=== PATIENT | female | born 1960 | race Caucasian/White ===

== ENCOUNTER → 2017-02-27 09:43 | Outpatient (CLI) | payer BC, SELFPAY ==
[2017-01-29 15:27] VITALS: BMI 32.1
--- NOTE | 2017-02-27 09:59 | PCM.CR.ITP ---
Exercise - Initial Assessment - Visit Date of Eval: 02/27/17 - evaluation & assessment - Stages of Change Stages of Change:: Action - Exercise Prescription Mode:: Treadmill, Rower, Airdyne, NuStep Angina with exercise?: No Target Heart Rate:: 116-124 - Hypertension Do any of the following apply?: Yes Resting Blood Pressure:: 118/64 - Intervention Home Exercise/Activity Goal:: Moderate Exercise 30 min/day x 5 days/wk - Education Goals:: Warm-up, RPE PHOEBE Scale, S/S, Safe Exercise, Self-Monitoring - Exercise Program Goals Exercise Program Goals: Aerobic Activity >30 min Nutrition - Initial Assessment - Program Goals Nutrition Program Goals: LDL <70. Total Cholesterol <200. HDL >45. Triglycerides <150. HgbA1C <7%. BMI <25 - Visit Date of Assessment:: 02/27/17 - Stages of Change Stages of Change:: Action - Diabetes Diabetes:: No Insulin: No Non-Insulin Dependent?: No Do you monitor your blood sugar at home?: No - Weight Management Height: 5 ft 3 in Weight:: 81.783 kg Body Fat %:: 31 - Intervention Referral to dietitian:: Yes Referral to Diabetic Clinic:: No Will attend diet classes:: Yes - Education Gave educational materials for:: Healthy eating Nutrition - 30-Day Assessment - Program Goals Nutrition Program Goals: LDL <70. Total Cholesterol <200. HDL >45. Triglycerides <150. HgbA1C <7%. BMI <25 - Diabetes Diabetes:: No Nutrition - 60-Day Assessment - Program Goals Nutrition Program Goals: LDL <70. Total Cholesterol <200. HDL >45. Triglycerides <150. HgbA1C <7%. BMI <25 - Diabetes Diabetes:: No Nutrition - 90-Day Assessment - Program Goals Nutrition Program Goals: LDL <70. Total Cholesterol <200. HDL >45. Triglycerides <150. HgbA1C <7%. BMI <25 - Diabetes Diabetes:: No Nutrition - Final Assessment - Program Goals Nutrition Program Goals: LDL <70. Total Cholesterol <200. HDL >45. Triglycerides <150. HgbA1C <7%. BMI <25 - Diabetes Diabetes:: No Tobacco - Initial Assessment - Program Goals Tobacco Program Goals: Complete smoking cessation. Attend education classes. Improve Knowledge Test score - Stage of Change Stages of Change:: Action - Learning Barriers Learning Barriers: Vision - wears glasses, Ready to Learn - Family Support Do you have family support?: Yes - Tobacco Use Tobacco Use: Non-smoker Do you use smokeless tobacco?: No - Intervention Smoking Cessation Referral:: No Individual Education/Counseling:: No Education Schedule Given:: Yes - Education Gave educational material for:: Coronary artery disease, Risk factors, Sexuality, Medical compliance, Cardiac A&P, Angina signs & symptoms Psychosocial - Initial Assess - Target Goals Target Goals: Assess presence or absence of depression. Using a valid screening tool, maximizes coping skills. Positive support system - Stages of Change Stages of Change:: Action - Psychosocial Test Tool Used:: HANDS Depression Questionnaire Self-reported stress:: Work, a lot of stress with work environment - Intervention PS - Interventions: Yes Attend Stress Management Classes, No Referral to Mental Health, No Referral to [facility] Case Management, No Referral to Physician, No Uses Stress Management Skills - Education Gave educational materials for:: Coping techniques, Signs & symptoms of depression, Stress management, Relaxation techniques - Patient/Program Goal Preventative Medication(s):: Aspirin, MEGHANA inhibitor, Clopidogrel, Beta christian, Statin/lipid - Assistive Devices Assistive Devices:: None Fall Risk Assessed:: Yes Patient Health Questionnaire Initial Assessment 1. Little interest or pleasure in doing things: Not at all 2. Feeling down, depressed, or hopeless: Not at all 3. Trouble falling or staying asleep, or sleeping too much: More than half the days 4. Feeling tired or having little energy: Several days 5. Poor appetite or overeating: More than half the days 6. Feeling bad about yourself -- or that you are a failure or have let yourself or your family down: Not at all 7. Trouble concentrating on things, such as reading the newspaper or watching television: Not at all 8. Moving or speaking so slowly that other people could have noticed. Or the opposite - being so fidgety or restless that you have been moving around a lot more than usual: Several days 9. Thoughts that you would be better off , or of hurting yourself in some way: Not at all How difficult have these problems made it for you to do your work, take care of things at home, or get along with other people?: Not difficult at all Total Score: 6 Knowledge Test - Check your knowledge Initial The #1 cause of in the [place] each year is:: Heart disease Which of the following is a common treatment for heart disease?: All of the above The arteries that feed the heart are called:: Coronary arteries HDL cholesterol is known as the good cholesterol.: False What disease increases your risk for heart disease?: Diabetes What food product raises blood cholesterol level the most?: Saturated fat The bad cholesterol in the blood is called:: HDL Hypertension is another word for:: High blood pressure A blood pressure reading of 148/88 is considered normal.: False Exercise will only benefit your health when your heart rate reaches a target level.: False Total Score:: 8 Self-Efficacy Initial Assessment We would like to know how confident you are in doing certain activities. Please select your confidence level for:: Select your confidence level for the following using the scale 1-10 where 1 is not at all confident and 10 is totally confident. Your score is the average of all 6 responses. Fatigue: How confident are you that you can keep the fatigue caused by your disease from interfering with the things you want to do? Select Number: 9 Physical Discomfort or Pain: How confident are you that you can keep the physical discomfort or pain of your disease from interfering with the things you want to do? Select Number: 9 Emotional Distress: How confident are you that you can keep the emotional distress caused by your disease from interfering with the things you want to do? Select Number: 8 Other Symptoms or Health Problems: How confident are you that you can keep other symptoms or health problems from interfering with the things you want to do? Select Number: 8 Different Tasks and Activities: How confident are you that you can do the different tasks and activities needed to manage your health condition so as to reduce your need to see a doctor? Select Number: 9 Medication: How confident are you that you can do things other than just taking medication to reduce how much your illness affects your everyday life? Select Number: 9 Total Score:: 8 Nutrition Survey - Nutrition Survey Instructions Scoring Instructions: Scoring is as follows: Yes = 1 points. No = 0 point. Patient score that is >/=12 is considered to be at potential nutritional risk and could benefit from a referral to a registered dietitian. - Nutrition Survey Initial Have you lost >10 lbs over the past 2 months without trying?: No Are you following a special diet at home for diabetes, low fat, or low salt?: Yes Are you interested in meeting with a dietitian for help understanding your diet?: Yes Do you eat less than 3 meals a day?: Yes Do you eat fatty meats (irby, sausage, ribs, etc), fried foods, desserts, large amounts of salad dressings, margarine, butter, or cheese most days?: Yes Do you have food allergies? [Enter types in comment field]: Yes Do you eat in restaurants more than 3 times a week?: No Do you season food with salt, seasoning salt, or garlic salt?: Yes Do you used canned, boxed, frozen meals, or soups, seasoning packets?: Yes Total Score:: 7 Cardiac Rehabilitation Goals - Cardiac Rehab Goals Cardiac Rehabilitation Goals: 1. Maintain the individual as the primary focus of care. 2. To improve the patient's quality of life. 3. Identification of cardiac risk factors and provide cardiac risk factor management. 4. Enhance the psychosocial status of the patient. 5. Reconditioning enough to allow the patient to resume customary activities. 6. Control symptoms of cardiac disease - Scale Scale for measuring improvement of personal goals: Enter appropriate number in Comments. 2 = Unchanged. 3 = Slightly Better. 4 = Moderate Improvement. 5 = Met my Goal Initial Assessment Personal Goals: 30-day Re-assessment: Improve energy level, Get back to work, or to resume activities faster, Improve diet and eating habits (eat healthier), Control risk factors (learn risk factor modification), Other goal: - Learn to eat healthier foods.
--- NOTE | 2017-02-27 10:00 | PCM.CR.HP2 ---
CR - History & Physical - General Arrival date:: 02/27/17 Arrival time:: 10:03 Date of Admission: 02/27/17 Referring Physician: Dr. Sma Massey Primary Diagnosis: PCI-[place] - History of Present Cardiac Event Onset Date: Enter Onset Date of cardiac illnesses in Comment field below PTCA:: Yes - PCI-[place] left anterior descending artery x 2 stents Type of Symptoms:: Unspecified chest pain, Abnormal stress test with anterior ischemia, scheduled for catheterization Interventions with present event:: subsequent heart cath Were there any complications?: sensitivity to metoprolol and brillinta; changed over to plavix - Medications Home Medications: Ambulatory Orders Medication Instructions Recorded Amlodipine Besylate/Benazepril 1 tab PO DAILY 01/26/17 [Lotrel 10-40 mg Capsule] Aspirin [Aspirin EC] 81 mg PO DAILY 01/26/17 Meclizine HCl 25 mg PO Q8H PRN PRN #20 tablet 02/11/17 Zolpidem Tartrate [Ambien] 10 mg PO QHS 02/11/17 - Allergies Allergies/Adverse Reactions: Allergies ticagrelor [From Brilinta] Allergy (Verified 02/11/17 10:15) Shortness of breath acetaminophen [From Vicodin] Adverse Reaction (Mild, Verified 02/11/17 10:15) Unknown per pt , reaction is hyperactivity hydrocodone [From Vicodin] Adverse Reaction (Mild, Verified 02/11/17 10:15) Unknown per pt, reaction is hyperactivity oxycodone [From Percocet] Adverse Reaction (Verified 02/11/17 10:15) Other per patient, reaction is hyperactivity - Sleep Disorder Evaluation Hx of Sleep Apnea: No Do you snore loudly (louder than talking or can be heard through closed doors)?: Yes Do you often feel tired/ fatigued/ sleepy during daytime?: Yes - work so hard at work not sure if over-tired over working brain. Has anyone observed you stop breathing during sleep?: No History of Hypertension (for STOP score): Yes - for about 15 years, latril keeps it under control. STOP Results: Positive Advanced Directives - Advanced Directives Power of Air Press Operator: No Living Will: No Advance Directives on File: No DNR Order?:: No Past Medical History - Problems and Co-Morbidities Problems & Co-Morbidities: Dyslipidemia, Obesity - BMI 31-31.9%, Hypertension, - - Panic attacks, diverticulitis, IBS, DM, hypothyroidism, - Past Medical Illness Other Medical Illnesses:: migrain headaches, seasonal allergies. - Past Cardiac Illness Past Cardiac Illness: Ejection Fraction - 60% per ECHO 01/10/2017 - Other Other: Vision/Eye Problems - wears glasses - Past Surgical History Surgical History: - - , NOA -one ovary, and now stents - Family History Summary Additional Family History: PGM TIA, father [place] age 75, daughter hx breast [place]. Review of Systems - Review of Systems Hints: Right click = Denies (Slash). Left click = Reports ([place]) Review of Present Symptoms: Reports: Shortness of Breath at Rest, Shortness of Breath with Exertion - walking from one side of the store to the other, Dizziness/Lightheadedness - related to vertigo, so it is on and off., Fatigue, Appetite - Special Diet - try to watch fats, and salt.. Denies: Appetite - Normal - irregular not really hungry but do eat., Sleep - Normal - not sleeping more than a couple of hours nightly. Risk Factor Assessment - Chief Complaint Chief Complaint: patient presents to cardiac rehab following recent PCI-[place] procedure. - Pulse Pulse Rate: 92 - SpO2 94% Pulse Rhythm: Regular - Hypertension How long have you been treated?: 15 On medication(s)?: [id number] Blood Pressure Sitting - Right Arm: 104/60 - Stress Stress: Work-related - Smoking Do you use tobacco products? If so, how much and for how long?: No Exposure to 2nd-hand smoke? How much and how long?: No Do you plan to quit smoking?: No - Diabetes Nutrition Referral for Diabetes: No - Obesity Height: 5 ft 3 in Weight:: 81.783 kg Weight in Pounds: 180.3 lbs Body Mass Index (BMI): 31.9 Nutritional Referral for Obesity: Yes - Physical Inactivity Physical Inactivity: Physically demanding job - alot of walking, climbing ladders, stairs etc. - Risk Stratification Risk Guidelines: Lowest Risk: Risk Factor for Smoking, Risk Factor for Dyslipidemia, Risk Factor for Diabetes, Risk Factor for Hypertension, Risk Factor for Sedentary Lifestyle, Risk Factor for Depression, Highest Risk: Risk Factor for Obesity - For Smoking Smoking Risk Guidelines: Smoking Low Risk: None or quit greater than 6 months ago. Smoking Moderate Risk: Smoker or quit 6 months or less ago. Smoking High Risk: Smoker - For Dyslipidemia Dyslipidemia Risk Guidelines: Low Risk: Moderate Risk: High Risk: 15-25% fat 25.1-29% fat >/= 30% fat. <7% sat fat 7-9% sat fat >9% sat fat. <150 mg chol 150-299 mg chol >/= 300 mg chol. LDL <100 LDL 100-129 LDL >/= 130. Chol/HDL ratio <5.0 Chol/HDL ratio 5.0-6.0 Chol/HDL ratio >6.0. Triglycerides <100 Triglycerides 100-149 Triglycerides >/= 150 - For Diabetes Mellitus Diabetes Risk Guidelines: Diabetes Low Risk: HgA1c <6.5% and/or FBG <120. Diabetes Moderate Risk: HgA1c 6.6-7.9% and/or FBG 120-180. Diabetes High Risk: HgA1c >/= 8% and/or FBG >180 - For Obesity/Overweight Obesity/Overweight Risk Guidelines: Obesity Low Risk: BMI <25.0. Obesity Moderate Risk: BMI 25-29.9. Obesity High Risk: BMI >/= 30.0 - For Hypertension Hypertension Risk Guidelines: Hypertension Low Risk: Systolic <120 and Diastolic <80. Hypertension Moderate Risk: Systolic 120-139 and Diastolic 80-89. Hypertension High Risk: Systolic >/= 140 and Diastolic >/= 90 - For Sedentary Lifestyle Sedentary Lifestyle Risk Guidelines: Sedentary Lifestyle Low Risk: >/= 1,500 kcal/week. Sedentary Lifestyle Moderate Risk: 700-1,499 kcal/week. Sedentary Lifestyle High Risk: < 700 kcal/week - For Depression Depression Risk Guidelines: Depression Low Risk: Not clinically depressed. Depression Moderate Risk: Mildly depressed. Depression High Risk: Clinically depressed Social History - Alcohol Use Alcohol Usage: No - Occupation Occupation (List type of work in comments):: Employed Hours worked per day:: 9 - give or take Returned to work on:: 02/19/17 - Hobbies, Recreation, Social Activities Hobbies: Other - [employer], cooking, word find puzzles, learn how to lc, Recreational Activities: I am able to engage in all my recreational activities Marital Status - Status Marital Status: Single - Current Living Arrangements Living Environment:: Family - Children How many children do you have?: 2 - son and a daughter Do any of your children live nearby?: Yes - 1 at home, 10 miles - Safety Do you feel safe in your surroundings?: Yes - Assistance Do you need any assistance at home?: none
--- NOTE | 2017-02-27 10:10 | CR.HP_ITS ---
CR - History & Physical - General Arrival date:: 02/27/17 Arrival time:: 10:03 Date of Admission: 02/27/17 Referring Physician: Dr. Sam Massey Primary Diagnosis: PCI-[place] - History of Present Cardiac Event Onset Date: Enter Onset Date of cardiac illnesses in Comment field below PTCA:: Yes - PCI-[place] left anterior descending artery x 2 stents Type of Symptoms:: Unspecified chest pain, Abnormal stress test with anterior ischemia, scheduled for catheterization Interventions with present event:: subsequent heart cath Were there any complications?: sensitivity to metoprolol and brillinta; changed over to plavix - Medications Home Medications: Ambulatory Orders Medication Instructions Recorded Amlodipine Besylate/Benazepril 1 tab PO DAILY 01/26/17 [Lotrel 10-40 mg Capsule] Aspirin [Aspirin EC] 81 mg PO DAILY 01/26/17 Meclizine HCl 25 mg PO Q8H PRN PRN #20 tablet 02/11/17 Zolpidem Tartrate [Ambien] 10 mg PO QHS 02/11/17 - Allergies Allergies/Adverse Reactions: Allergies ticagrelor [From Brilinta] Allergy (Verified 02/11/17 10:15) Shortness of breath acetaminophen [From Vicodin] Adverse Reaction (Mild, Verified 02/11/17 10:15) Unknown per pt , reaction is hyperactivity hydrocodone [From Vicodin] Adverse Reaction (Mild, Verified 02/11/17 10:15) Unknown per pt, reaction is hyperactivity oxycodone [From Percocet] Adverse Reaction (Verified 02/11/17 10:15) Other per patient, reaction is hyperactivity - Sleep Disorder Evaluation Hx of Sleep Apnea: No Do you snore loudly (louder than talking or can be heard through closed doors)? : Yes Do you often feel tired/ fatigued/ sleepy during daytime?: Yes - work so hard at work not sure if over-tired over working brain. Has anyone observed you stop breathing during sleep?: No History of Hypertension (for STOP score): Yes - for about 15 years, latril keeps it under control. STOP Results: Positive Advanced Directives - Advanced Directives Power of Gymnastics Coach: No Living Will: No Advance Directives on File: No DNR Order?:: No Past Medical History - Problems and Co-Morbidities Problems & Co-Morbidities: Dyslipidemia, Obesity - BMI 31-31.9%, Hypertension, - - Panic attacks, diverticulitis, IBS, DM, hypothyroidism, - Past Medical Illness Other Medical Illnesses:: migrain headaches, seasonal allergies. - Past Cardiac Illness Past Cardiac Illness: Ejection Fraction - 60% per ECHO 01/10/2017 - Other Other: Vision/Eye Problems - wears glasses - Past Surgical History Surgical History: - - , NOA -one ovary, and now stents - Family History Summary Additional Family History: PGM TIA, father [place] age 75, daughter hx breast [place]. Review of Systems - Review of Systems Hints: Right click = Denies (Slash). Left click = Reports ([place]) Review of Present Symptoms: Reports: Shortness of Breath at Rest, Shortness of Breath with Exertion - walking from one side of the store to the other, Dizziness/Lightheadedness - related to vertigo, so it is on and off., Fatigue, Appetite - Special Diet - try to watch fats, and salt.. Denies: Appetite - Normal - irregular not really hungry but do eat., Sleep - Normal - not sleeping more than a couple of hours nightly. Risk Factor Assessment - Chief Complaint Chief Complaint: patient presents to cardiac rehab following recent PCI[place] procedure. - Pulse Pulse Rate: 92 - SpO2 94% Pulse Rhythm: Regular - Hypertension How long have you been treated?: 15 On medication(s)?: [id number] Blood Pressure Sitting - Right Arm: 104/60 - Stress Stress: Work-related - Smoking Do you use tobacco products? If so, how much and for how long?: No Exposure to 2nd-hand smoke? How much and how long?: No Do you plan to quit smoking?: No - Diabetes Nutrition Referral for Diabetes: No - Obesity Height: 5 ft 3 in Weight:: 81.783 kg Weight in Pounds: 180.3 lbs Body Mass Index (BMI): 31.9 Nutritional Referral for Obesity: Yes - Physical Inactivity Physical Inactivity: Physically demanding job - alot of walking, climbing ladders, stairs etc. - Risk Stratification Risk Guidelines: Lowest Risk: Risk Factor for Smoking, Risk Factor for Dyslipidemia, Risk Factor for Diabetes, Risk Factor for Hypertension, Risk Factor for Sedentary Lifestyle, Risk Factor for Depression, Highest Risk: Risk Factor for Obesity - For Smoking Smoking Risk Guidelines: Smoking Low Risk: None or quit greater than 6 months ago. Smoking Moderate Risk: Smoker or quit 6 months or less ago. Smoking High Risk: Smoker - For Dyslipidemia Dyslipidemia Risk Guidelines: Low Risk: Moderate Risk: High Risk: 15-25% fat 25.1-29% fat >/= 30% fat. <7% sat fat 7-9% sat fat >9% sat fat. <150 mg chol 150-299 mg chol >/= 300 mg chol. LDL <100 LDL 100-129 LDL >/= 130. Chol/HDL ratio <5.0 Chol/HDL ratio 5.0-6.0 Chol/HDL ratio >6.0. Triglycerides <100 Triglycerides 100-149 Triglycerides >/= 150 - For Diabetes Mellitus Diabetes Risk Guidelines: Diabetes Low Risk: HgA1c <6.5% and/or FBG <120. Diabetes Moderate Risk: HgA1c 6.6-7.9% and/or FBG 120-180. Diabetes High Risk: HgA1c >/= 8% and/or FBG >180 - For Obesity/Overweight Obesity/Overweight Risk Guidelines: Obesity Low Risk: BMI <25.0. Obesity Moderate Risk: BMI 25-29.9. Obesity High Risk: BMI >/= 30.0 - For Hypertension Hypertension Risk Guidelines: Hypertension Low Risk: Systolic <120 and Diastolic <80. Hypertension Moderate Risk: Systolic 120-139 and Diastolic 80-89. Hypertension High Risk: Systolic >/= 140 and Diastolic >/= 90 - For Sedentary Lifestyle Sedentary Lifestyle Risk Guidelines: Sedentary Lifestyle Low Risk: >/= 1 ,500 kcal/week. Sedentary Lifestyle Moderate Risk: 700-1,499 kcal/week. Sedentary Lifestyle High Risk: < 700 kcal/week - For Depression Depression Risk Guidelines: Depression Low Risk: Not clinically depressed. Depression Moderate Risk: Mildly depressed. Depression High Risk: Clinically depressed Social History - Alcohol Use Alcohol Usage: No - Occupation Occupation (List type of work in comments):: Employed Hours worked per day:: 9 - give or take Returned to work on:: 02/19/17 - Hobbies, Recreation, Social Activities Hobbies: Other - [employer], cooking, word find puzzles, learn how to lc , Recreational Activities: I am able to engage in all my recreational activities Marital Status - Status Marital Status: Single - Current Living Arrangements Living Environment:: Family - Children How many children do you have?: 2 - son and a daughter Do any of your children live nearby?: Yes - 1 at home, 10 miles - Safety Do you feel safe in your surroundings?: Yes - Assistance Do you need any assistance at home?: none
[2017-02-27 10:40] VITALS: BP 104/60; PULSE 92; BMI 31.9
[2017-02-27 11:51] VITALS: BP 118/64
== END ==
PROVIDERS: Family Provider Nurse Practitioner; PCP Nurse Practitioner; Visit Provider Internal Medicine Cardiovascular Disease
DX: Z95.5 Presence of coronary angioplasty implant and graft (principal)

== ENCOUNTER → 2018-04-09 10:32 | Outpatient (CLI) | payer BC, SELFPAY ==
[2017-01-29 15:27] VITALS: BMI 32.1
--- NOTE | 2018-04-09 10:35 | RAD_ITS ---
STUDY: X-RAY - PELVIS AND RIGHT HIP REASON FOR EXAM: Female, 57 years old. Right groin pain TECHNIQUE: Radiological exam, hip, unilateral, with pelvis when performed; 2 or 3 views. COMPARISON: None. FINDINGS: There is a non-specific bowel gas pattern. Normal visualized soft tissue structures. Normal bilateral iliac wings, sacroiliac joints and visualized sacrum. Normal bilateral superior and inferior pubic rami. Normal pubic symphysis. Normal bilateral ischial tuberosities. Normal visualized femoral head. Normal acetabulum. Normal hip joint. RAD/HIP, UNI W/ Pelvis 2-3 Views IMPRESSION: Normal x-ray examination of the pelvis and hip. No fracture Electronically Signed: Clemente Machado MD at 6:41 EST Tel , Service support ,
== END ==
PROVIDERS: Family Provider Nurse Practitioner; PCP Nurse Practitioner; Referring Provider Physician Assistant; Visit Provider Physician Assistant
DX: M25.551 Pain in right hip (principal)
CPT/HCPCS: 73502

== ENCOUNTER → 2019-12-17 09:59 | Outpatient (CLI) | payer BC, SELFPAY ==
[2017-01-29 15:27] VITALS: BMI 32.1
[2019-12-16 10:22] VITALS: BMI 27.4
[2019-12-17 11:00] LABS: AST(SGOT) 11 U/L (15-37); Alanine Aminotransfer ALT/SGPT 27 U/L (13-56); Albumin, Serum 3.6 g/dL (3.2-5.0); Alkaline Phosphatase 120 U/L (45-117); Bilirubin, Direct 0.16 mg/dL (0.00-0.30); Cholesterol 253 mg/dL (200); Globulin 4.2 g/dL (2.2-4.2); High Density Lipoprotein 45 mg/dL; Protein, Total 7.8 g/dL (6.4-8.2); Thyroid Stim Hormone (TSH) 0.92 uIU/mL (0.358-3.74); Triglycerides 175 mg/dL; Very Low Density Lipoprotein 35 mg/dL (5-40)
== END ==
PROVIDERS: PCP Nurse Practitioner; Referring Provider Internal Medicine Cardiovascular Disease; Visit Provider Internal Medicine Cardiovascular Disease
DX: E78.00 Pure hypercholesterolemia, unspecified (principal); E78.5 Hyperlipidemia, unspecified
CPT/HCPCS: 36415; 80061; 80076; 84443

== ENCOUNTER → 2019-12-31 06:24 | Outpatient (CLI) | payer BC, SELFPAY ==
[2017-01-29 15:27] VITALS: BMI 32.1
[2019-12-16 10:22] VITALS: BMI 27.4
--- NOTE | 2019-12-31 13:06 | STRESSREP ---
Stress Test Report Exercise myocardial perfusion stress test. 59-year-old lady with a history of previous angioplasty and stenting of the left anterior descending artery. Stress protocol: Resting EKG demonstrates normal sinus rhythm with a rate of 78 bpm normal intervals are noted resting blood pressure is 142/86 mmHg. The patient exercised according to regular Nagi protocol for a total duration of 6 minutes. The maximum heart rate attained was 153 bpm which was 93% of maximum predicted heart rate the maximum workload was 7 metabolic equivalents. At rest there were no ST or T wave changes noted suggest ischemia at peak exercise upsloping ST changes only were noted with no meet the criteria for ischemia. Resting blood pressure was 142/86 with a peak blood pressure 170/104 mmHg rate-pressure product was 26,000. No clinical angina was noted the test was terminated due to leg discomfort as well as target heart rate being achieved. Myocardial perfusion protocol. 11.1 mCi of technetium 99m sestamibi was injected at rest. The patient exercised according to regular Nagi protocol for 6 minutes at peak exercise 33.8 mCi of technetium 99m sestamibi was injected stress images were obtained stress and rest images were reconstructed and compared in the short axis vertical long horizontal long axis. Gated images were also obtained Perfusion SPECT analysis: Review of the stress images demonstrate normal uptake of tracer noted in all areas of myocardium the resting images similar demonstrate normal uptake of tracer noted in all areas of myocardium. No obvious reversibility is noted suggest ischemia. Gated SPECT analysis: The gated ejection fraction is 77%. Conclusion: Normal exercise myocardial perfusion stress test with no evidence of ischemia at a moderate workload. Preserved ejection fraction.
== END ==
PROVIDERS: PCP Nurse Practitioner; Referring Provider Internal Medicine Cardiovascular Disease; Visit Provider Internal Medicine Cardiovascular Disease
DX: I25.10 Atherosclerotic heart disease of native coronary artery without angina pectoris (principal); Z95.5 Presence of coronary angioplasty implant and graft
CPT/HCPCS: 78452; 93017; A9500; A4216

== ENCOUNTER 2020-12-28 16:44 | Emergency (ER) | payer BC, SELFPAY ==
[2017-01-29 15:27] VITALS: BMI 32.1
[2020-12-28 16:21] VITALS: BMI 26.9
[2020-12-28 16:46] VITALS: BP 118/93; PULSE 80; RESP 16; TEMP 36.2; O2SAT 96; BMI 26.6
--- NOTE | 2020-12-28 17:20 | EX.ED.DYSGE1 ---
HPI History of Present Illness Chief Complaint: Dizziness Informant: patient Narrative Narrative: 60-year-old female presents the emergency room and states that every December her allergies get flared up and she gets a frontal headache nasal drainage ear pressure and over the past few days has been developing some dizziness-like sensation when she stands. The dizziness has been intermittent today. No spinning sensation she denies any current cough but states that usually comes with it. She notes itchy watery eyes. She has had some periorbital swelling. No fevers. She states that in the past she has done well with Zyrtec. PFSH [facility] Medical History Atherosclerotic heart disease of [place] coronary artery without angina pectoris Chest pain, unspecified Diabetes type 2, uncontrolled Diverticulitis DM (diabetes mellitus) Essential (primary) hypertension HLD (hyperlipidemia) Hypothyroidism Irritable bowel syndrome Panic attack Shortness of breath Tearing of muscle Home Medications aspirin 81 mg tablet,delayed release 81 mg PO QDAY #90 tab 12/10/18 [Rx Last Taken Unknown] Lotrel 10 mg-40 mg capsule 1 cap PO DAILY #90 cap NS 12/14/20 [Rx Last Taken Unknown] ezetimibe 10 mg tablet 10 mg PO DAILY #90 tab 12/14/20 [Rx Last Taken Unknown] cetirizine [Zyrtec] 10 mg PO DAILY #14 capsule 12/28/20 [Rx Last Taken Unknown] doxycycline monohydrate 100 mg PO BID #20 capsule 12/28/20 [Rx Last Taken Unknown] fluticasone propionate 2 spray INTRANASAL DAILY #16 g 12/28/20 [Rx Last Taken Unknown] Allergy/AdvReac Type Severity Reaction Status Date / Time sumatriptan [From Imitrex] Allergy Severe asthma, SOB Verified 12/28/20 16:45 Cephalosporins Allergy Mild Unknown Verified 12/28/20 16:45 citalopram [From Celexa] Allergy Mild Unknown Verified 12/28/20 16:45 erythromycin base Allergy Mild Hives Verified 12/28/20 16:45 estradiol Allergy Mild nausea and Verified 12/28/20 16:45 vomiting gatifloxacin Allergy Mild Unknown Verified 12/28/20 16:45 levofloxacin [From Levaquin] Allergy Mild headaches Verified 12/28/20 16:45 sertraline Allergy Mild pt felt Verified 12/28/20 16:45 dope sucralfate Allergy Mild nausea and Verified 12/28/20 16:45 vomiting triamterene Allergy Mild nausea and Verified 12/28/20 16:45 vomiting ticagrelor [From Brilinta] Allergy Shortness Verified 12/28/20 16:45 of breath acetaminophen [From Vicodin] AdvReac Mild Unknown Verified 12/28/20 16:45 hydrocodone [From Vicodin] AdvReac Mild Unknown Verified 12/28/20 16:45 atorvastatin [From Lipitor] AdvReac myalgia Verified 12/28/20 16:45 clopidogrel [From Plavix] AdvReac Skin Verified 12/28/20 16:45 peeling: oxycodone [From Percocet] AdvReac Other Verified 12/28/20 16:45 entex pse Allergy Mild Unknown Uncoded 12/28/20 16:45 hctz Allergy Mild nausea and Uncoded 12/28/20 16:45 vomiting Family History Father Myocardial infarction, Onset Age: 75 Daughter Breast cancer Other Hypertension Surgical History History of colonoscopy History of coronary artery stent placement (01/29/17) History of hysterectomy Social History Smoking Status: Never smoker alcohol intake: never substance use type: does not use caffeine: Yes Type: tea Number of servings: 2 what type of physical activity do you participate in: walking frequency: daily duration: 15-30 minutes/day seatbelt use: always do you feel safe at home: Yes ROS ROS ED Constitutional Constitutional ED: Denies chills or weight loss Eyes Eyes: Reports other Details: Itchy watery eyes ; Denies change in vision or diplopia ENT ENT ED: Reports ear pain, rhinorrhea and other Details: Bilateral ear pressure frontal headache periorbital swelling ; Denies sore throat Cardiovascular Cardiovascular: Denies chest pain, orthopnea, palpitations or racing heartbeat Respiratory/Chest Respiratory/Chest: Denies cough, dyspnea or orthopnea Gastrointestinal Gastrointestinal: Denies abdominal pain, diarrhea, nausea or vomiting Genitourinary Genitourinary ED: Denies dysuria, hematuria or urinary frequency Musculoskeletal Musculoskeletal: Denies arthralgias or myalgias Integumentary Denies abscess or rash Neurologic Neurologic: Denies headache(s) or weakness Psychiatric Psychiatric: Denies anxiety, depression, suicidal ideation or suicidal thoughts Endocrine Endocrinology: Denies polydipsia, polyphagia or polyuria Allergic/Immunologic Allergic/Immunologic ED: Denies mouth swelling, tongue swelling or urticaria EXAM Physical Exam Const Vital Signs: 12/28/20 16:46 12/28/20 17:03 Temperature 97.1 F L Temperature Source Temporal Pulse Rate 80 Respiratory Rate 16 Respiratory Effort Normal Non-Labored Respiratory Pattern Normal Blood Pressure 118/93 H Blood Pressure Mean 101 Pulse Ox 96 Oxygen Delivery Method Room Air Positive well nourished and well developed General Appearance ED: well developed HEENT Reports normocephalic, head/scalp atraumatic and moist mucous membranes HEENT Narrative: Bilaterally the patient has fluid behind the tympanic membranes. They are not erythematous. Patient has clear rhinorrhea. There is no conjunctival injection. Mild tenderness to palpation over the frontal sinuses. Eyes PERRL and EOMs intact bilaterally Neck no lymphadenopathy, supple and no JVD Resp normal respiratory effort and clear to auscultation bilaterally Cardio regular rate, regular rhythm and no murmurs GI normal to inspection, nondistended, normoactive bowel sounds and non-tender Palpation: soft Back/Spine no CVA tenderness and normal ROM Extremity normal to inspection General Extremety ED: Negative for edema General Extremity: Negative for edema Neuro oriented x3 and CN's II-XII intact bilaterally Sensorium / Orientation: alert Motor Exam: strength 5/5 throughout Psych mental status grossly normal Mood & Affect: Negative for depressed or tearful Skin no rashes or lesions noted and no wounds MDM MDM MDM Narrative Medical decision making narrative: This it does appear to be seasonal allergies. I will give her a dose of IM Kenalog. I can also start her on Zyrtec and Flonase. Patient would also like to try to a antibiotic. I think this is less likely to be effective. Discharge Plan Triage Chief Complaint: Dizziness ED Provider: Elia Rosas Dx/Rx/DC Orders Clinical Impression: Acute serous otitis media of both ears, Allergic rhinitis Instructions: ED Allergic Rhinitis Prescriptions: New Zyrtec 10 mg capsule 10 mg PO DAILY Qty: 14 RF: 0 fluticasone propionate 50 mcg/actuation spray,suspension 2 spray intranasal DAILY Qty: 16 RF: 0 doxycycline monohydrate 100 MG capsule 100 mg PO BID Qty: 20 RF: 0 No Action aspirin [Adult Low Dose Aspirin] 81 mg tablet,delayed release (DR/EC) 81 mg PO QDAY Qty: 90 RF: 8 ezetimibe 10 mg tablet 10 mg PO DAILY Qty: 90 RF: 3 amlodipine-benazepril [Lotrel] 10-40 mg capsule 1 cap PO DAILY Qty: 90 RF: 3 Primary Care Provider: Lary Hernandez NP Referrals: Lary Hernandez NP, [facility] [Primary Care Provider] - As Needed Disposition Disposition: Home, Self Care
[2020-12-28] MEDS: Triamcinolone Acetonide 40 MG/ML Vial 80 MG IM (17:49)
== END 2020-12-28 18:19 | disposition home or self-care (01) ==
LOC: ED 17:32
PROVIDERS: Emergency Provider Emergency Medicine; PCP Nurse Practitioner
DX: H65.03 Acute serous otitis media, bilateral (principal); J30.9 Allergic rhinitis, unspecified; I25.10 Atherosclerotic heart disease of native coronary artery without angina pectoris; Z79.82 Long term (current) use of aspirin; Z79.899 Other long term (current) drug therapy
CPT/HCPCS: 96372; 99283

== ENCOUNTER 2021-10-17 18:55 | Emergency (ER) | payer BC, SELFPAY ==
[2017-01-29 15:27] VITALS: BMI 32.1
[2021-10-17 18:57] VITALS: BP 139/102; PULSE 90; RESP 16; TEMP 36.5; O2SAT 95; BMI 27.4
--- NOTE | 2021-10-17 20:50 | ED.RN ---
ASKED HOW MUCH LONGER. 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 STATED SHE IS HERE BECAUSE SHE IS HAVING PROBLEMS. APOLOGIZED AND STATED WE WOULD GET HER BACK SOON WE COULD. HE ASKED IF THEY COULD LEAVE IF THEY DECIDED. ANSWERED THEY WERE FREE TO DO THEY DECIDED AND AGAIN WE WOULD GET HER BACK SOON WE COULD. PT AND HER AMBULATED FROM ED WITHOUT DISTRESS AND STEADY GAIT.
== END 2021-10-17 20:30 | disposition left against medical advice (07) ==
LOC: ED 20:56
DX: Z53.21 Procedure and treatment not carried out due to patient leaving prior to being seen by health care provider (principal)

== ENCOUNTER → 2022-01-17 | Outpatient (CLI) | payer BC, SELFPAY ==
[2017-01-29 15:27] VITALS: BMI 32.1
--- NOTE | 2022-01-17 08:45 | ECHOD_ITS ---
Reason For Study: MURMUR Procedure This was a 2D Doppler, Color Flow transthoracic echocardiogram. Exam performed in department. Left Ventricle Normal LV size. Sigmoid septum. Left ventricular systolic function is normal. The estimated ejection fraction is 60 %. No regional wall motion abnormalities noted. Right Ventricle Normal RV size. Normal systolic function. Atria Normal left atrium. Normal right atrium. Mitral Valve Normal mitral valve. Tricuspid Valve Normal tricuspid valve. Aortic Valve Trisinus/trileaflet aortic valve. Moderate focal aortic valve calcification. Pulmonic Valve Normal pulmonic valve. Trivial pulmonic valve insufficiency. Great Vessels Normal aortic root. The pulmonary artery is normal size. Normal inferior vena cava. Pericardium/Pleural No pericardial effusion. MMode/2D Measurements & Calculations LVIDd: 4.4 cm IVSd: 1.1 cm LVOT diam: 2.1 cm LVIDs: 2.8 cm LVPWd: 1.3 cm LVOT area: 3.3 cm2 RVDd: 3.1 cm FS: 35.9 % Ao root diam: 3.6 cm LVAd ap4: 22.4 cm2 SV(MOD-sp4): 32.5 ml LVLd ap4: 7.2 cm EDV(MOD-sp4): 56.3 ml EDV(sp4-el): 59.3 ml LVAs ap4: 13.4 cm2 LVLs ap4: 6.2 cm ESV(MOD-sp4): 23.9 ml ESV(sp4-el): 24.3 ml EF(MOD-sp4): 57.6 % EF(sp4-el): 59.1 % SV(sp4-el): 35.0 ml LA dimension(2D): 3.7 cm Time Measurements MV dec time: 0.22 sec Doppler Measurements & Calculations MV E max bell: 58.3 cm/sec MV V2 max: 82.0 cm/sec MV dec slope: 271.1 cm/sec2 MV A max bell: 85.3 cm/sec MV max P.7 mmHg MV E/A: 0.68 MV V2 mean: 49.8 cm/sec MV mean P.1 mmHg MV V2 VTI: 23.7 cm MVA(VTI): 3.0 cm2 Ao V2 max: 147.0 cm/sec LV V1 max: 94.0 cm/sec SV(LVOT): 70.0 ml Ao max P.7 mmHg LV V1 max P.5 mmHg Ao V2 mean: 105.4 cm/sec LV V1 mean P.9 mmHg Ao mean P.0 mmHg LV V1 mean: 65.0 cm/sec Ao V2 VTI: 32.8 cm LV V1 VTI: 21.1 cm TATI(I,D): 2.1 cm2 TATI(V,D): 2.1 cm2 PA V2 max: 87.1 cm/sec ECHO/Echo Complete Interpretation Summary Normal LV size. Sigmoid septum. Left ventricular systolic function is normal. Moderate focal aortic valve calcification. The estimated ejection fraction is 60 %. Ordering Physician: Sonal Bailey Performed By: Candice Suarez RCS
== END | disposition home or self-care (01) ==
LOC: CVS 08:43
PROVIDERS: Visit Provider Physician Assistant Medical
DX: R01.1 Cardiac murmur, unspecified (principal); I10 Essential (primary) hypertension
CPT/HCPCS: 93306

== ENCOUNTER → 2023-03-13 | Outpatient (CLI) | payer BC, SELFPAY ==
[2017-01-29 15:27] VITALS: BMI 32.1
[2023-03-13 10:55] LABS: Absolute Lymphocyte Count 1.85 X10^3/uL (0.83-4.51); Absolute Neutrophil Count 2.8 X10^3/uL (2.0-7.7); Basophil# 0.05 X10^3/uL; Basophil% 0.9 % (0-1); Eosinophil# 0.17 X10^3/uL; Eosinophils% 3.2 % (0-5); Hematocrit 45.6 % (37-47); Hemoglobin 14.6 g/dL (12.0-15.0); Lymphocyte # 1.85 X10^3/ul (0.83-4.51); Mean Corpuscular Hgb 28.5 pg (27.0-32.0); Mean Corpuscular Volume 89.1 fL (81-99); Mean Platelet Vol. 10.9 fl (6.2-12.0); Monocyte# 0.38 X10^3/uL; Monocyte% 7.2 % (0-10); NRBC Flagged by Analyzer 0 % (0-5); Neutrophil # 2.83 X10^3/uL (2.7-7.7); Neutrophil % 53.5 % (47-70); Platelet Count 298 K/mm3 (150-450); RBC Distribution Width CV 12.1 % (11.6-14.6); RBC Distribution Width SD 39.7 fl (35.1-43.9); Red Blood Count 5.12 M/mm3 (4.2-5.4); White Blood Count 5.3 K/mm3 (4.4-11.0)
[2023-03-13 11:33] LABS: Free T3 2.6 pg/mL (2.18-3.98); T4 Free Direct 0.94 ng/dL (0.76-1.46)
== END | disposition home or self-care (01) ==
LOC: LAB 09:35
PROVIDERS: Referring Provider Physician Assistant Medical; Visit Provider Physician Assistant Medical
DX: R53.83 Other fatigue (principal)
CPT/HCPCS: 36415; 84439; 84443; 84481; 85025

== ENCOUNTER → 2024-04-09 | Outpatient (CLI) | payer BC, SELFPAY ==
[2017-01-29 15:27] VITALS: BMI 32.1
[2024-04-09 10:10] LABS: Cholesterol 230 mg/dL (200); High Density Lipoprotein 50 mg/dL; Triglycerides 147 mg/dL; Very Low Density Lipoprotein 29 mg/dL (5-40)
== END | disposition home or self-care (01) ==
LOC: LAB 09:15
PROVIDERS: Referring Provider Physician Assistant Medical; Visit Provider Physician Assistant Medical
DX: E78.5 Hyperlipidemia, unspecified (principal)
CPT/HCPCS: 36415; 80061

== ENCOUNTER → 2025-04-08 | Outpatient (CLI) | payer BC, SELFPAY ==
[2017-01-29 15:27] VITALS: BMI 32.1
[2025-04-08 11:05] LABS: AST(SGOT) 14 U/L (<=31); Alanine Aminotransfer ALT/SGPT 15 U/L (<=34); Albumin, Serum 4.1 g/dL (3.4-4.8); Alkaline Phosphatase 124 U/L (35-104); Anion Gap 10 (5-15); BUN 15 mg/dL (4-19); BUN/Creat Ratio 26.5 RATIO (10-20); Calcium,Total 9.2 mg/dL (7.6-11.0); Carbon Dioxide 23.7 mmol/L (21.0-32.0); Chloride 104 mmol/L (98-108); Cholesterol 213 mg/dL (<=200); Globulin 3.2 g/dL (2.2-4.2); Glucose 305 mg/dL (70-99); Low Density Lipoprotein Calc. 148 mg/dL; Potassium 4.9 mmol/L (3.3-5.1); Triglycerides 90 mg/dL; Very Low Density Lipoprotein 18 mg/dL (5-40); cholesterol:hdl ratio screen 4.38
== END | disposition home or self-care (01) ==
LOC: LAB 09:35
PROVIDERS: Referring Provider Physician Assistant Medical; Visit Provider Physician Assistant Medical
DX: I25.10 Atherosclerotic heart disease of native coronary artery without angina pectoris (principal); Z95.5 Presence of coronary angioplasty implant and graft; E78.5 Hyperlipidemia, unspecified
CPT/HCPCS: 36415; 80053; 80061

== ENCOUNTER → 2025-05-05 | Outpatient (CLI) | payer BC, SELFPAY ==
[2017-01-29 15:27] VITALS: BMI 32.1
--- OUTSIDE RECORDS SUMMARY | 2025-05-05 05:57 | XMS RPT_ITS | CCD ---
Author Organization [facility] Care Team Providers Care Trimmer Loader Name Role Phone Karissa Saavedra Unavailable Kaela, RN, Angela Delatorre Unavailable Unavailabl mike Sherwood RN, Angela M Unavailable Unavailcorrina Almanza RN, Jeniffer A Unavailable Unavailable Cami RN, Jeniffer A Unavailable Unavailable Cami RN, Jeniffer A Unavailable Unavailable Cami RN, Jeniffer A Unavailable Unavailable Cami RN, Jeniffer A Unavailable Unavailable [facility] COMMUNITY DEVELOPMENT DIRECTOR, [facility] Unavailable Cami RN, Jeniffer A Unavailable Unavailable Claudia Muñoz Unavailable Unavailable Toni, Claudia Unavailable Unavailable MD Massey Cyril S Unavailable QUANG Sherwood, Angela Delatorre Unavailable Unavailabl mike Sherwood RN, Angela M Unavailable Unavailabl mike Almanza RN, Jeniffer A Unavailable Unavailable Cami DEL RIO, Jeniffer A Unavailable Unavailable QUANG Sehrwood, Angela Delatorre Unavailable Unavailcorrina Sherwood RN, Angela M Unavailable Unavailcorrina Sherwood RN, Angela Delatorre Unavailable Unavailabl Karissa Tran Unavailable David LITTLE.Lizette BILLY Primary Care Provide r David COMMUNITY DEVELOPMENT DIRECTOR, JENNIFER Barth Referring Provider Leo CARROLL, CARLY Delatorre Attending Provider Care Physician, No Primary Primary Care Provider Unavailable Dr. Sam Massey Attending Provider David LITTLE.Lizette BILLY Primary Care Provide r David LITTLE.Lizette BILLY Primary Care Provide r David LITTLE.Lizette BILLY Primary Care Provide r Unavailable Primary Care Provider JOSE Juárez Attending Unavailable David LITTLE.Lizette BILLY Primary Care Provide r SELF Referring Unavailable LIZETTE MAR Primary Care Unavailable Sonal Andrews Attending Unavail able Sonal Andrews Referring Unavail able Care Physician, No Primary Primary Care Unava ilable Care Physician, No Primary Referring Unava ilable Sonal Andrews Attending Unavail able Care Physician, No Primary Primary Care Unava ilable Sonal Andrews Attending Unavail able Sonal Andrews Referring Unavail able Care Physician, No Primary Primary Care Unava ilable Care Physician, No Primary Primary Care Unava ilable Care Physician, No Primary Referring Unava ilable Sonal Andrews Attending Unavail able Allergies Allergy Classification Reported Allergen(s) Allergy Type Date of Onset Reaction(s) Facility (18 sources) acetaminophen / HYDROcodone drug allergy 01-20-20 17 wired up [facility] Work Phone: [phone] (5 sources) acetaminophen / oxyCODONE drug allergy 02-14-20 17 Pt states unable to sleep [facility] Work Phone: [phone] (11 sources) Cephalosporins (Antibiotic); Translations: [CEPHALOSPORINS] drug allergy 02-14-20 17 Unknown [facility] Work Phone: [phone] (3 sources) citalopram drug allergy 02-14-20 17 unknown [facility] Work Phone: [phone] (11 sources) estradiol; Translations: [ESTRADIOL] drug allergy 08-08-19 12 GI Upset [facility] Work Phone: [phone] (5 sources) gatifloxacin; Translations: [gatifloxacin] drug allergy 02-14-20 17 unknown [facility] Work Phone: [phone] (3 sources) levoFLOXacin drug allergy 02-14-20 17 Headaches [facility] Work Phone: [phone] (4 sources) pseudoephedrine drug allergy 02-14-20 17 unknown [facility] Work Phone: [phone] (11 sources) sertraline; Translations: [SERTRALINE] food allergy 03-07-20 12 Other: See Comments [facility] Work Phone: [phone] (11 sources) sucralfate; Translations: [SUCRALFATE] drug allergy 06-02-20 11 GI Upset [facility] Work Phone: [phone] (3 sources) SUMAtriptan drug allergy 02-14-20 17 Asthma and/or SOB [facility] Work Phone: [phone] (5 sources) ticagrelor drug allergy 02-08-20 17 SOB, [facility] Work Phone: [phone] (5 sources) ERYTHROMYCIN BASE; Translations: [erythromycin base] drug allergy 02-14-20 17 hives [facility] Work Phone: [phone] (4 sources) HCTZ drug allergy 02-14-20 17 nausea and vomiting [facility] Work Phone: [phone] (20 sources) NKDA; Translations: [NKDA] allergy to substance 10-04-19 17 [facility] Work Phone: [phone] (3 sources) TRIAMTERENE-HCTZ; Translations: [TRIAMTERENE-HCTZ] food allergy 02-14-20 17 Nausea and vomiting [facility] Work Phone: [phone] (12 sources) Acetaminophen / HYDROcodone; Translations: [HYDROCODONE-ACETAMINO PHEN] Drug Allergy 04-04-20 13 Intolerance [facility] (14 sources) Erythromycin; Translations: [ERYTHROMYCIN] Drug Allergy 05-01-20 11 Hives, Itching [facility] (13 sources) levoFLOXacin; Translations: [LEVOFLOXACIN] Drug Allergy 05-01-20 11 GI Upset [facility] (13 sources) oxyCODONE; Translations: [OXYCODONE] Drug Allergy 04-04-20 13 Other: See Comments [facility] (13 sources) SUMAtriptan; Translations: [SUMATRIPTAN] Drug Allergy 04-04-20 13 Anaphylaxis [facility] (6 sources) Thiazides; Translations: [THIAZIDES] Drug Allergy 05-01-20 11 GI Upset, Other: See Comments [facility] (1 source) Acetaminophen Drug Allergy 12-15-19 22 Unknown [facility] Work Phone: [phone] (7 sources) atorvastatin; Translations: [ATORVASTATIN] Drug Allergy 11-28-19 14 Myalgia [facility] (7 sources) Citalopram; Translations: [CITALOPRAM] Drug Allergy 06-02-20 11 Other: See Comments, Unknown [facility] (7 sources) clopidogrel; Translations: [CLOPIDOGREL] Drug Allergy 12-29-19 21 Other: See Comments [facility] (1 source) ezetimibe Drug Allergy 12-15-19 22 Other [facility] Work Phone: [phone] (3 sources) HYDROcodone Drug Allergy 12-15-19 22 Unknown [facility] Work Phone: [phone] (7 sources) Ticagrelor; Translations: [TICAGRELOR] Drug Allergy 02-08-20 17 Shortness of Breath [facility] (7 sources) Triamterene; Translations: [TRIAMTERENE] Drug Allergy 12-29-19 21 Vomiting [facility] (6 sources) Thiazides Drug Allergy 05-01-20 11 GI Upset, Other: See Comments [facility] (6 sources) guaiFENesin / Pseudoephedrine; Translations: [PSEUDOEPHEDRINE-GUAIF ENESIN] Drug Allergy 06-02-20 11 GI Upset [facility] (6 sources) hydroCHLOROthiazide / Triamterene; Translations: [TRIAMTERENE-HYDROCHLO ROTHIAZID] Drug Allergy 02-14-20 17 GI Upset [facility] (6 sources) Nitrofurantoin; Translations: [NITROFURANTOIN] Drug Allergy 06-02-20 11 Other: See Comments, GI Upset [facility] (6 sources) Pravastatin; Translations: [PRAVASTATIN] Drug Allergy 12-31-19 14 Unknown [facility] (1 source) Acetaminophen Drug Allergy 04-08-20 [facility] (1 source) atorvastatin Drug Allergy 04-08-20 [facility] (1 source) Citalopram Drug Allergy 04-08-20 25 [facility] (1 source) clopidogrel Drug Allergy 04-08-20 [facility] (1 source) Dextromethorphan Drug Allergy 04-08-20 [facility] (1 source) ezetimibe Drug Allergy 04-08-20 [facility] (1 source) guaiFENesin Drug Allergy 04-08-20 [facility] (1 source) hydroCHLOROthiazide Drug Allergy 04-08-20 [facility] (1 source) HYDROcodone Drug Allergy 04-08-20 [facility] (1 source) levoFLOXacin Drug Allergy 04-08-20 [facility] (1 source) oxyCODONE Drug Allergy 04-08-20 [facility] (1 source) Pseudoephedrine Drug Allergy 04-08-20 [facility] (1 source) SUMAtriptan Drug Allergy 04-08-20 [facility] (1 source) Ticagrelor Drug Allergy 04-08-20 [facility] (1 source) Triamterene Drug Allergy 04-08-20 [facility] Medications Current Medications Medication Drug Class(es) Dates Sig (Normalized) Sig (Original) amLODIPine 10 mg / benazepril hydrochloride 40 mg oral capsule (20 sources) Dihydropyridine Calcium Channel Inga, Angiotensin Converting Enzyme Inhibitor Start: 01-26-2017 End: 12-04-2017 take 1 tablet by mouth once daily Amlodipine-Benaze pril Discontinued 1 TABLET PO DAILY January 26, 2017 12:00am December 04, 2017 1:06pm MUST BE NAME BRAND. ALLERGY TO GENERIC Start: 10-03-2016 take 1 tablet by claudy th once daily LOTREL 5-20 MG CAPS One tablet by mouth daily AMLODIPINE BESY-BENAZEPRIL HCL [id number] Sam Massey MD Start: 10-03-2016 take 1 tablet by claudy th once daily LOTREL 5-20 MG CAPS One tablet by mouth daily AMLODIPINE BESY-BENAZEPRIL HCL [id number] Sam Massey MD Start: 10-03-2016 take 1 tablet by claudy th once daily LOTREL 10-40 MG CAPS One tablet by mouth daily AMLODIPINE BESY-BENAZEPRIL HCL [id number] Sam Massey MD Start: 10-03-2016 take 1 tablet by claudy th once daily LOTREL 10-40 MG CAPS One tablet by mouth daily AMLODIPINE BESY-BENAZEPRIL HCL [id number] Angela Sherwood RN Start: 09-21-2011 End: 12-14-2021 take 1 capsule by mouth once daily Amlodipine-Benazepril (LOTREL) 10-40 mg ORAL per capsule Take 1 capsule by mouth once daily. 30 capsule 4 09/21/2011 Active Comment on above: Take 1 capsule by mo [facility] once daily. amoxicillin 875 mg / clavulanate 125 mg oral tablet (1 source) Penicillin-class Antibacterial Start: 2 End: 2 take 1 tablet by mouth every twelve hours amoxicillin-clavula mayra acid (AUGMENTIN) 875-125 mg per tablet Take 1 tablet by mouth every 12 hours for 7 days. 14 tablet 0 05/01/2022 05/08/2022 Active Comment on above: Take 1 tablet by claudy every 12 hours for 7 days. benzonatate 100 mg oral capsule (13 sources) Non-narcotic Antitussive Start: 5 take 1 capsule by mouth every eight hours as needed benzonatate (TESSALON PERLE) 100 mg capsule Take 1 capsule by mouth three times a day as needed. 20 capsule 08/22/2024 Active Start: 04-17-2023 take 2 capsules by m [facility] every eight hours as needed benzonatate (TESSALON PERLES) 100 mg capsule Take 2 capsules by mouth three times a day as needed. 30 capsule 04/17/2023 Active Start: 09-19-2022 End: 04-17-2023 take 1 capsule by mouth at bedtime as needed benzonatate (TESSALON PERLE) 100 mg capsule Indications: Viral URI with cough Take 1-2 capsules by mouth at bedtime as needed. 30 capsule 0 09/19/2022 04/17/2023 Discontinued Start: 09-17-2019 End: 03-16-2022 take 1 capsule by mouth three times daily as needed benzonatate (TESSALON PERLE) 100 mg capsule Indications: Viral URI with cough Take 1 capsule by mouth three times daily as needed. 30 capsule 0 10/18/2021 03/16/2022 Discontinued Start: 05-22-2018 End: 12-10-2018 take 200 mg by mouth three times daily Benzonatate Discontinued 200 MG PO THREE TIMES A DAY 60 May 22, 2018 1:00am December 10, 2018 1:33pm Comment on above: Take 1 capsule by mo [facility] three times daily as needed. Take 1 capsule by mo [facility] three times daily as needed for Cough. Take 1-2 capsules by mouth at bedtime as needed. Take 2 capsules by m out three times a day as needed. cetirizine hydrochloride 10 mg oral tablet (13 sources) Histamine-1 Receptor Antagonist Start: 2 End: 3 take 1 tablet by mouth once daily cetirizine (ZYRTEC) 10 mg tablet Take 1 tablet by mouth once daily. 30 tablet 0 04/17/2023 05/17/2023 Active Start: 12-28-2020 End: 12-14-2021 take 1 capsule by mouth once daily Cetirizine (Zyrtec) 10 mg capsule Active 10 MG PO DAILY December 14, 2021 9:18am Comment on above: Take 1 tablet by claudy th once daily. Take 1 tablet by claudy th once daily for 5 days. cyclobenzaprine hydrochloride 10 mg oral tablet (2 sources) Muscle Relaxant Start: 024 take 1 tablet by mouth twice daily as needed for muscle spasms cyclobenzaprine (Flexeril) 10 MG tablet Take 1 tablet (10 mg) by mouth 2 times daily as needed for muscle spasms. 10 tablet 0 08/21/2023 Active fluticasone propionate 0.05 mg/actuat metered dose nasal spray (11 sources) Corticosteroid Start: 023 take 1 spray(s) nasal route once daily fluticasone (FLONASE ALLERGY RELIEF) 50 mcg/actuation nasal spray Use 1 [place] in each nostril once daily. 11.1 mL 04/17/2023 Active Start: 09-19-2022 End: 04-17-2023 take 2 spray(s) nasal route once daily fluticasone (FLONASE) 50 mcg/actuation nasal spray Indications: Viral URI with cough Use 2 Sprays in each nostril once daily. 1 Each 0 09/19/2022 04/17/2023 Discontinued (Course of therapy completed) Start: 03-16-2022 take 1 spray(s) nasa l route twice daily fluticasone (FLONASE ALLERGY RELIEF) 50 mcg/actuation nasal spray Indications: Viral URI with cough , Otalgia of right ear Use 1 [place] in each nostril twice daily. 1 Each 0 03/16/2022 Active Start: 12-28-2020 take 1 spray(s) nasa l route once daily Fluticasone Propionate Active 2 SPRAY INTRANASAL DAILY December 28, 2020 12:00am administer into each nostril Start: 11-04-2019 End: 10-18-2021 take 1 spray(s) nasal route once daily at bedtime fluticasone (FLONASE) 50 mcg/actuation nasal spray Indications: ETD (Eustachian tube dysfunction), bilateral , Dizziness Use 1 [place] in each nostril daily at bedtime. 1 Bottle 0 11/04/2019 10/18/2021 Discontinued Comment on above: Use 1 [place] in each nostril daily at bedtime. Use 1 [place] in each nostril twice daily. Use 2 Sprays in each nostril once daily. Use 1 [place] in each nostril once daily. 12 hr guaiFENesin 600 mg extended release oral tablet (5 sources) Start: 3 take 1 tablet by mouth twice daily guaiFENesin (MUCINEX) 600 mg 12 hr tablet Indications: Viral URI with cough Take 1 tablet by mouth twice daily. 30 tablet 08/11/2022 Active Comment on above: Take 1 tablet by [facility] twice daily. lidocaine hydrochloride 20 mg/ml mucous membrane topical solution (4 sources) Antiarrhythmic, Amide Local Anesthetic Start: 5 LIDOCAINE VISCOUS 2 % solution Indications: Acute pharyngitis, unspecified etiology Take 5 mL by mouth as needed for pain. 100 mL 08/22/2024 Active Start: 08-21-2023 End: 08-21-2023 Lidocaine 4 % patch 1 patch methylPREDNISolone (1 source) Corticosteroid Start: 08-11-2022 End: 08-16-2022 methylPREDNISolone (MEDROL, MYRTLE,) 4 mg Dose-Pack Indications: NATALIIA (middle ear effusion), right As Instructed per package 21 tablet 0 08/11/2022 08/16/2022 Active Comment on above: As Instructed per carly sow predniSONE 20 mg oral tablet (1 source) Start: 01-29-2023 End: 02-03-2023 take 2 tablets by mouth once daily predniSONE (DELTASONE) 20 mg tablet Indications: TMJ click , Acute otalgia, bilateral Take 2 tablets by mouth once daily for 5 days. 10 tablet 0 01/29/2023 02/03/2023 Active Comment on above: Take 2 tablets by mo [facility] once daily for 5 days. Completed/Discontinued Medications Medication Drug Class(es) Dates Sig (Normalized) Sig (Original) acetaminophen 500 mg oral tablet (2 sources) Start: 08-21-2023 End: 08-21-2023 acetaminophen (Tylenol) tablet 1,000 mg acetaminophen 500 mg / chlorpheniramine maleate 2 mg / dextromethorphan hydrobromide 15 mg oral tablet (4 sources) Histamine-1 Receptor Antagonist, Uncompetitive Y-pvtyfe-[place]at e Receptor Antagonist, Sigma-1 Agonist Start: 03-16-2022 take 2 tablets by mouth every eight hours as needed ZN-Uuklwfxtagszh-R horpheniram (CORICIDIN HBP FLU) 2-15-500 mg tab Indications: Viral URI with cough Take 2 tablets by mouth every 8 hours as needed. 20 tablet 0 03/16/2022 Active Comment on above: Take 2 tablets by [facility] every 8 hours as needed. ALPRAZolam 0.5 mg oral tablet (20 sources) Benzodiazepine Start: 05-22-2018 End: 12-10-2018 take 0.5 mg by mouth once daily Alprazolam Discontinued 0.5 MG PO daily May 22, 2018 1:00am December 10, 2018 1:34pm Start: 10-03-2016 End: 02-13-2017 ALPRAZOLAM 0.5 MG TABS as di rected ALPRAZOLAM [id number] Angela Sherwood RN aspirin 325 mg oral tablet (20 sources) Nonsteroidal Anti-inflammatory Drug Start: 12-10-2018 End: 12-10-2018 take 325 mg by mouth twice daily Aspirin Discontinued 325 MG PO TWICE A DAY December 10, 2018 1:35pm December 10, 2018 1:54pm Start: 12-10-2018 Aspirin (Adult Low Dose Aspirin) 81 mg tablet,delayed release (DR/EC) Active 81 MG PO daily December 10, 2018 12:00am Start: 05-16-2017 End: 05-16-2017 take 325 mg by mouth once daily Aspirin Discontinued 325 MG PO DAILY May 16, 2017 12:49pm May 16, 2017 1:07pm Start: 10-04-2016 End: 05-16-2017 take 81 mg by mouth once daily Aspirin Discontinued 81 MG PO DAILY May 16, 2017 1:04pm May 16, 2017 4:52pm Start: 12-30-2014 End: 12-10-2018 take 1 tablet by mouth once daily aspirin 325 mg tablet Take 1 tablet by mouth once daily. 10 tablet 0 12/30/2014 Active Comment on above: Take 1 tablet by claudy th once daily. atorvastatin 20 mg oral tablet (20 sources) HMG-CoA Reductase Inhibitor Start: 0 End: 1 take 1 tablet by mouth at bedtime Atorvastatin (Lipitor) 20 mg tablet Discontinued 20 MG PO AT BEDTIME January 22, 2020 12:00am December 14, 2020 10:42am Start: 10-04-2016 End: 02-13-2017 take 1 tablet by mouth once daily ATORVASTATIN CALCIUM 40 MG TABS One tablet by mouth every night on hold 02/07/17 ATORVASTATIN CALCIUM [id number] Angela Sherwood RN Start: 10-04-2016 take 1 tablet by claudy th once daily LIPITOR 10 MG TABS HOLD One tablet by mouth daily ATORVASTATIN CALCIUM [id number] Jeniffer Almanza RN buPROPion hydrochloride 100 mg oral tablet (20 sources) Aminoketone Start: 10-03-2016 End: 01-19-2017 take 1 tablet by mouth twice daily BUPROPION HCL 100 MG TABS One tablet by mouth twice daily BUPROPION HCL [id number] Brice Hwang NP clopidogrel 75 mg oral tablet (20 sources) P2Y12 Platelet Inhibitor Start: 01-19-2017 End: 01-30-2017 take 75 mg by mouth once daily Clopidogrel Discontinued 75 MG PO DAILY January 26, 2017 12:00am January 30, 2017 7:59am dapagliflozin 5 mg oral tablet (3 sources) Sodium-Glucose Cotransporter 2 Inhibitor Start: 03-27-2018 End: 12-10-2018 take 1 tablet by mouth once daily Dapagliflozin (Farxiga) 5 mg tablet Discontinued 10 MG PO DAILY May 22, 2018 4:21pm December 10, 2018 1:33pm desoximetasone 2.5 mg/ml topical spray (1 source) Corticosteroid Start: 12-04-2017 End: 12-10-2018 apply 0.25 spray(s) topically twice daily Desoximetasone (Topicort) 0.25 % spray,non-aerosol Discontinued 1 APPLIC TOPICAL TWICE A DAY December 04, 2017 12:00am December 10, 2018 1:33pm Dicyclomine (1 source) Anticholinergic End: 10-18-2021 DICYCLOMINE HCL (BENTYL ORAL) Take by mouth. 0 10/18/2021 Discontinued Comment on above: Take by mouth. doxycycline monohydrate 100 mg oral capsule (1 source) Tetracycline-class Drug Start: 12-28-2020 End: 02-15-2021 take 100 mg by mouth twice daily Doxycycline Monohydrate Discontinued 100 MG PO TWICE A DAY December 28, 2020 12:00am February 15, 2021 12:59pm 0.85 ml exenatide 2.35 mg/ml auto-injector (2 sources) GLP-1 Receptor Agonist Start: 05-22-2018 End: 12-10-2018 Exenatide Microspheres (Bydureon Bcise) 2 mg/0.85 mL auto-injector Discontinued 2 MG SC Q7D 3.4 May 22, 2018 4:21pm December 10, 2018 1:33pm ezetimibe 10 mg oral tablet (1 source) Dietary Cholesterol Absorption Inhibitor Start: 12-14-2020 End: 12-14-2021 take 10 mg by mouth once daily Ezetimibe Discontinued 10 MG PO DAILY December 14, 2020 12:00am December 14, 2021 9:18am hydrocortisone 10 mg/ml / neomycin 3.5 mg/ml / polymyxin b 93000 unt/ml otic suspension (8 sources) Aminoglycoside Antibacterial, Polymyxin-class Antibacterial, Corticosteroid Start: 10-18-2021 neomycin-polymyxin -hydrocortisone (CORTISPORIN) 3.5-10,000-1 mg/mL-unit/mL-% otic suspension Indications: Acute otitis externa of right ear, unspecified type Use 4 Drops in the left ear three times daily. 10 mL 0 10/18/2021 Active Start: 02-15-2021 End: 02-25-2021 Kuncdpjn-Wasqechey-Hg Discon tinued 3 DRP OTIC Q4H 10 10 February 15, 2021 12:00am February 25, 2021 12:01am apply to (cotton) wick; replace wick every 24 hours Comment on above: Use 4 Drops in the l eft ear three times daily. 1 ml ketorolac tromethamine 15 mg/ml cartridge (2 sources) Nonsteroidal Anti-inflammatory Drug, Cyclooxygenase Inhibitor Start: 08-21-19 End: 08-21-19 ketorolac (Toradol) injection 15 mg meclizine hydrochloride 25 mg oral tablet (1 source) Antiemetic Start: 02-12-20 End: 12-05-19 take 25 mg by mouth every eight hours as needed Meclizine Discontinued 25 MG PO EVERY 8 HOURS NEEDED February 11, 2017 1:12pm December 04, 2017 1:06pm metFORMIN hydrochloride 1000 mg oral tablet (2 sources) Biguanide Start: 02-21-20 End: 12-11-19 take 1000 mg by mouth twice daily Metformin Discontinued 1000 MG PO TWICE A DAY 60 February 20, 2018 12:00am December 10, 2018 1:33pm Start: 12-04-2017 End: 12-10-2018 take 500 mg by mouth once daily Metformin Discontinued 500 MG PO daily December 04, 2017 12:00am December 10, 2018 1:33pm metoprolol tartrate 25 mg oral tablet (12 sources) beta-Adrenergic Inga Start: 01-31-2017 End: 02-07-2017 take 0.5 tablet by mouth twice daily METOPROLOL TARTRATE 25 MG TABS 1/2 tablet by mouth twice daily METOPROLOL TARTRATE [id number] Jeniffer Almanza RN naproxen 500 mg oral tablet (1 source) Nonsteroidal Anti-inflammatory Drug Start: 12-03-2015 End: 10-18-2021 take 1 tablet by mouth twice daily at mealtime naproxen (NAPROSYN) 500 mg tablet Take 1 tablet by mouth twice daily with meals. 14 tablet 0 12/03/2015 10/18/2021 Discontinued Comment on above: Take 1 tablet by claudy th twice daily with meals. prasugrel 10 mg oral tablet (1 source) P2Y12 Platelet Inhibitor Start: 05-16-2017 End: 05-16-2017 take 10 mg by mouth once daily Prasugrel Discontinued 10 MG PO daily May 16, 2017 1:00am May 16, 2017 1:20pm simvastatin 10 mg oral tablet (1 source) HMG-CoA Reductase Inhibitor Start: 12-04-2017 End: 12-10-2018 take 10 mg by mouth once daily in the evening Simvastatin Discontinued 10 MG PO EVERY EVENING December 04, 2017 12:00am December 10, 2018 1:32pm levothyroxine sodium 0.05 mg oral tablet (20 sources) l-Thyroxine Start: 10-03-2016 End: 01-19-2017 take 1 tablet by mouth once daily SYNTHROID 50 MCG TABS One tablet by mouth daily LEVOTHYROXINE SODIUM [id number] Brice Hwang COMMUNITY DEVELOPMENT DIRECTOR Start: 10-03-2016 End: 01-19-2017 take 1 tablet by mouth once daily SYNTHROID 50 MCG TABS One tablet by mouth daily LEVOTHYROXINE SODIUM [id number] Brice Hwang COMMUNITY DEVELOPMENT DIRECTOR Start: 10-03-2016 take 1 tablet by claudy th once daily SYNTHROID 50 MCG TABS One tablet by mouth daily LEVOTHYROXINE SODIUM [id number] Angela Sherwood RN ticagrelor 90 mg oral tablet (13 sources) Start: 01-19-2017 End: 02-07-2017 take 1 tablet by mouth twice daily BRILINTA 90 MG TABS One tablet by mouth twice daily TICAGRELOR [id number] Jeniffer Almanza RN traMADol hydrochloride 50 mg oral tablet (1 source) Opioid Agonist Start: 12-03-2015 End: 10-18-2021 take 1 tablet by mouth every six hours as needed traMADol (ULTRAM) 50 mg tablet Take 1 tablet by mouth every 6 hours as needed. 20 tablet 0 12/03/2015 10/18/2021 Discontinued Comment on above: Take 1 tablet by claudy th every 6 hours as needed. triamcinolone acetonide 0.50101 mg/mg topical ointment (1 source) Corticosteroid Start: 12-04-2017 End: 12-10-2018 Triamcinolone Acetonide Discontinued 1 APPLIC TOPICAL TWICE A DAY December 04, 2017 12:00am December 10, 2018 1:32pm zolpidem tartrate 10 mg oral tablet (7 sources) gamma-Aminobutyric Acid-ergic Agonist Start: 02-07-2017 End: 05-16-2017 take 10 mg by mouth at bedtime Zolpidem Discontinued 10 MG PO AT BEDTIME February 11, 2017 12:00am May 16, 2017 12:51pm Problems Active Problems Problem Classification Problem Date Documented Date Episodic/Chronic Abdominal pain (1 source) Right lower quadrant pain; Translations: [Right lower quadrant pain] Episodic Coronary atherosclerosis and other heart disease (13 sources) Atherosclerotic heart disease of [place] coronary artery without angina pectoris; Translations: [Coronary atherosclerosis] Onset: 7 01-29-2017 Chronic Coronary atherosclerosis and other heart disease (1 source) Presence of coronary angioplasty implant and graft; Translations: [Presence of coronary angioplasty implant and graft] Onset: 5 Episodic Disorders of lipid metabolism (20 sources) Hyperlipidemia; Translations: [Hyperlipidemia, unspecified] Onset: 7 10-03-2016 Chronic Essential hypertension (20 sources) Hypertensive disorder; Translations: [Essential hypertension] Onset: 7 10-03-2016 Chronic Heart valve disorders (3 sources) Heart murmur; Translations: [Cardiac murmur, unspecified] Onset: 5 Episodic Nonspecific chest pain (20 sources) Chest pain; Translations: [Chest pain, unspecified] Onset: 7 10-03-2016 Episodic Other circulatory disease (20 sources) Cardiovascular stress test abnormal; Translations: [Abnormal result of other cardiovascular function study] Onset: 7 01-19-2017 Episodic Other connective tissue disease (1 source) Temporomandibular joint crepitus; Translations: [Other symptoms and signs involving the musculoskeletal system] 01-29-2023 Episodic Other ear and sense organ disorders (1 source) Acute otitis externa of right ear; Translations: [Unspecified acute noninfective otitis externa, right ear] Episodic Other ear and sense organ disorders (1 source) Acute otitis externa; Translations: [Diffuse otitis externa, right ear] Episodic Other ear and sense organ disorders (1 source) Impacted cerumen; Translations: [Impacted cerumen, right ear] Episodic Other ear and sense organ disorders (2 sources) Otalgia, right ear; Translations: [Otalgia, unspecified] Episodic Other ear and sense organ disorders (1 source) Pain of ear structure; Translations: [Otalgia, bilateral] 01-29-2023 Episodic Other lower respiratory disease (15 sources) Dyspnea; Translations: [Shortness of breath] Onset: 7 01-24-2017 Episodic Other nutritional; endocrine; and metabolic disorders (20 sources) Body mass index (BMI) 31.0-31.9, adult; Translations: [Body mass index (BMI) 32.0-32.9, adult] Onset: 7 02-13-2017 Chronic Other nutritional; endocrine; and metabolic disorders (6 sources) Body mass index (BMI) 32.0-32.9, adult; Translations: [Body mass index (BMI) 32.0-32.9, adult] Onset: 7 01-19-2017 Chronic Other upper respiratory disease (1 source) Allergic rhinitis; Translations: [Allergic rhinitis, unspecified] Chronic Other upper respiratory infections (6 sources) Viral upper respiratory tract infection; Translations: [Acute upper respiratory infection, unspecified] Episodic Otitis media and related conditions (1 source) Acute non-suppurative otitis media - serous; Translations: [Acute serous otitis media, bilateral] Episodic Spondylosis; intervertebral disc disorders; other back problems (2 sources) Acute low back pain; Translations: [Acute right-sided low back pain without sciatica] 08-21-2023 Episodic Unclassified (5 sources) Placement of stent in coronary artery ; Translations: [Presence of coronary angioplasty implant and graft] Onset: 7 01-29-2017 Unclassified (1 source) Low back pain, unspecified; Translations: [Low back pain, unspecified] Onset: Viral infection (2 sources) Acute viral disease; Translations: [Viral infection, unspecified] Episodic Past or Other Problems Problem Classification Problem Date Documented Da te Episodic/Chronic Unclassified (1 source) Low back pain, unspecified; Translations: [Low back pain, unspecified] Onset: 08-21-2023 Results Test Name Value Interpretation Reference Range Facility Cardiology Visit Reporton Cardiology Visit Report [facility] [address] [place] [address] OFFICE VISIT Date of Service: 04/08/25 MR#: [id number] Acct: [id number] Name: ANA LARKNI Rep #: [id number] : 1960 Provider: CARLY Herndon Age/Sex: 64/F Location: [facility] Status: Signed HPI HPI History of Present Illness Details: ANA LARKIN, is a 64 F who presents to the office today for a follow-up visit. She is a lady with a history of coronary artery disease status post angioplasty and stenting of the left anterior descending artery in January 2017. She also has a hx of hypertension and hyperlipidemia. She does not have any chest discomfort/heaviness/ tightness. Her exercise tolerance is stable for her age. She does not have any worsening symptoms of shortness of breath. She does not have any orthopnea. She denies PND. She does not have any symptoms of congestive heart failure. She does not have any palpitations that she is aware of. She does not have any lightheadedness or dizziness. She does not have any near-syncope or syncope. She does not have any lower extremity edema. She does not have any symptoms of claudication. 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 Intake Vital Signs 04/09/24 08:24 04/08/25 08:39 Height 5 ft 4 in 5 ft 4 in Weight: 152 lb 144 lb BMI 26.1 24.7 BP 128/81 H 120/78 Blood Pressure Location Rt brachial Rt brachial Position Sitting Sitting Respiration 18 18 Pulse 80 86 Pulse Source Monitor Monitor Pulse Oximetry (%) 96 94 Oxygen Delivery Method room air Intake Visit Reasons: 1 Y [employer] Childcare Attendant Required: No Accompanied by: Self Is patient in pain?: No Allergies sumatriptan (From Imitrex) Allergy (Severe, Verified 04/08/25 08:49) asthma, SOB Cephalosporins Allergy (Mild, Verified 04/08/25 08:49) Unknown citalopram (From Celexa) Allergy (Mild, Verified 04/08/25 08:49) Unknown dextromethorphan (From Entex PAC) Allergy (Mild, Verified 04/08/25 08:49) NEEDS FOLLOW-UP erythromycin base Allergy (Mild, Verified 04/08/25 08:49) Hives estradiol Allergy (Mild, Verified 04/08/25 08:49) nausea and vomiting gatifloxacin Allergy (Mild, Verified 04/08/25 08:49) Unknown guaifenesin (From Entex PAC) Allergy (Mild, Verified 04/08/25 08:49) NEEDS FOLLOW-UP levofloxacin (From Levaquin) Allergy (Mild, Verified 04/08/25 08:49) headaches pseudoephedrine (From Entex PAC) Allergy (Mild, Verified 04/08/25 08:49) NEEDS FOLLOW-UP sertraline Allergy (Mild, Verified 04/08/25 08:49) pt felt dope sucralfate Allergy (Mild, Verified 04/08/25 08:49) nausea and vomiting triamterene Allergy (Mild, Verified 04/08/25 08:49) nausea and vomiting ezetimibe (From Zetia) Allergy (Verified 04/08/25 08:49) Other ticagrelor (From Brilinta) Allergy (Verified 04/08/25 08:49) Shortness of breath acetaminophen (From Vicodin) Adverse Reaction (Mild, Verified 04/08/25 08:49) Unknown hydrochlorothiazide Adverse Reaction (Mild, Verified 04/08/25 08:49) Nausea and vomiting hydrocodone (From Vicodin) Adverse Reaction (Mild, Verified 04/08/25 08:49) Unknown atorvastatin (From Lipitor) Adverse Reaction (Verified 04/08/25 08:49) myalgia clopidogrel (From Plavix) Adverse Reaction (Verified 04/08/25 08:49) Skin peeling: oxycodone (From Percocet) Adverse Reaction (Verified 04/08/25 08:49) Other Medications ???Medication ???Instructions ???Recorded ???Confirmed ???Type aspirin 81 mg tablet,delayed 81 mg PO QDAY #90 tabs 12/10/18 Rx release (Adult Low Dose Aspirin) Lotrel 10 mg-40 mg capsule 1 cap PO DAILY Pt cannot take 07/0604/08/25 Rx (amlodipine-benazepri l) generic went to ER with tachycardia #90 caps Ejection fraction %: 60 Nurse's Note: EKG obtained today. Last one on file was 02/13/17. [facility] Medical History Essential (primary) hypertension Diabetes type 2, uncontrolled Tearing of muscle Irritable bowel syndrome Diverticulitis Panic attack DM (diabetes mellitus) Hypothyroidism HLD (hyperlipidemia) Chest pain, unspecified Shortness of breath Atherosclerotic heart disease of [place] coronary artery without angina pectoris Surgical History History of colonoscopy History of hysterectomy History of coronary artery stent placement (01/29/17) Family History Father Myocardial infarction, Onset Age: 75 Daughter Breast cancer Other Hypertension Social History Smoking Status: Never smoker alcohol intake: never substance use type: does not use caffeine: Yes Type: tea Number of servings: 2 what type of physical activity do you participate in: walking frequency: (more content not included)... Normal [facility] Comprehensive Metabolic Prof ilon 04-08-2025 Albumin [Mass/Vol] 4.1 g/dL Normal 3.4-4.8 [facility] Comment on above: Performed By: #### L 500.4100, L500.4050 #### [facility] [address] [place], [address] Albumin/Globulin [Mass ratio] 1.3 {ratio} Normal 0.9-2.4 [facility] Comment on above: Performed By: #### L 500.4100, L500.4050 #### [facility] [address] [place], [address] ALK PHOS 124 U/L High 35-104 [facility] Comment on above: Performed By: #### L 500.4100, L500.4050 #### [facility] [address] [place], [address] ALT [Catalytic activity/Vol] 15 U/L Normal <=34 [facility] Comment on above: Performed By: #### L 500.4100, [id number] #### [facility] [address] [place], [address] AST [Catalytic activity/Vol] 14 U/L Normal <=31 [facility] Comment on above: Performed By: #### L 500.4100, [id number] #### [facility] [address] [place], [address] Bilirubin [Mass/Vol] 0.32 mg/dL Normal 0.00-1.30 [facility] Comment on above: Performed By: #### L 500.4100, [id number] #### [facility] [address] [place], [address] BUN/CRE 26.5 RATIO High 10-20 [facility] Comment on above: Performed By: #### L 500.4100, [id number] #### [facility] [address] [place], [address] Calcium [Mass/Vol] 9.2 mg/dL Normal 7.6-11.0 [facility] Comment on above: Performed By: #### L 500.4100, [id number] #### [facility] [address] [place], [address] Chloride [Moles/Vol] 104 mmol/L Normal 98-108 [facility] Comment on above: Performed By: #### L 500.4100, L500.4050 #### [facility] [address] [place], [address] CO2 [Moles/Vol] 23.7 mmol/L Normal 21.0-32.0 [facility] Comment on above: Performed By: #### L 500.4100, L500.4050 #### [facility] [address] [place], [address] Creatinine [Mass/Vol] 0.55 mg/dL Low 0.70-1.20 [facility] Comment on above: Performed By: #### L 500.4100, [id number] #### [facility] [address] [place], [address] GAP 10 Normal 5-15 [facility] Comment on above: Performed By: #### L 500.4100, L500.4050 #### [facility] [address] [place], [address] GFR/1.73 sq M.predicted among non-blacks MDRD (S/P/Bld) [Vol rate/Area] 104 mL/min/{1.73_m2} Normal >60 [facility] Comment on above: Result Comment: mL/m in/1.73m2 CKD-EPI Creatinine Equation (2020) Performed By: #### L 500.4100, L500.4050 #### [facility] [address] [place], [address] Globulin (S) [Mass/Vol] 3.2 g/dL Normal 2.2-4.2 [facility] Comment on above: Performed By: #### L 500.4100, L500.4050 #### [facility] [address] [place], [address] Glucose [Mass/Vol] 305 mg/dL High 70-99 [facility] Comment on above: Performed By: #### L 500.4100, [id number] #### [facility] [address] [place], [address] Potassium [Moles/Vol] 4.9 mmol/L Normal 3.3-5.1 [facility] Comment on above: Performed By: #### L 500.4100, [id number] #### [facility] [address] [place], [address] Sodium [Moles/Vol] 137 mmol/L Normal 133-145 [facility] Comment on above: Performed By: #### L 500.4100, L500.4050 #### [facility] [address] [place], [address] T PROT 7.4 g/dL Normal 5.9-8.4 [facility] Comment on above: Performed By: #### L 500.4100, [id number] #### [facility] [address] [place], [address] Urea nitrogen [Mass/Vol] 15 mg/dL Normal 4-19 [facility] Comment on above: Performed By: #### L 500.4100, [id number] #### [facility] [address] [place], [address] Lipid Profileon 04-08-2025 CHOL:HDL 4.38 Normal [facility] Comment on above: Performed By: #### L 500.4100, L500.4050 #### [facility] [address] [place], [address] Cholesterol [Mass/Vol] 213 mg/dL High <=200 [facility] Comment on above: Result Comment: Chol esterol level, Desirable <200 mg/dL Borderline high cholesterol 200-239 mg/dL High cholesterol >=240 mg/dL Recommendations of the NCEP Adult Treatment Panel for the following risk-cutoff thresholds for the [place] population. Performed By: #### L 500.4100, L500.4050 #### [facility] [address] [place], [address] Cholesterol in HDL [Mass/Vol] 49 mg/dL Normal [facility] Comment on above: Result Comment: Amanda onal Cholesterol Education Program (NCEP) guidelines: <40 mg/dL: Low HDL-cholesterol (major risk factor for CHD) >= 60 mg/dL: High HDL-cholesterol (negative risk factor for CHD) HDL-cholesterol is affected by a number of factors, e.g. smoking, exercise, hormones, sex and age. Performed By: #### L 500.4100, L500.4050 #### [facility] [address] [place], [address] Cholesterol in LDL [Mass/Vol] 148 mg/dL Normal [facility] Comment on above: Result Comment: Bord odvwum=335-383 mg/dL Higher Txts=478 mg/dL or greater Her Equation 2020 for LDL-C Performed By: #### L 500.4100, L500.4050 #### [facility] [address] [place], [address] Cholesterol in VLDL [Mass/Vol] 18 mg/dL Normal 5-40 [facility] Comment on above: Performed By: #### L 500.4100, L500.4050 #### [facility] [address] [place], [address] Triglyceride [Mass/Vol] 90 mg/dL Normal [facility] Comment on above: Result Comment: The drugs N-Acetylcysteine and Metamizole may falsely depress this assay. Normal range: <150 mg/dL Borderline High: 150-199 mg/dL High: 200-499 mg/dL Very High: >500 mg/dL Performed By: #### L 500.4100, L500.4050 #### [facility] [address] [place], [address] CNOVon 08-22-2024 CNOV Office Visit ([facility] ) ANA LARKIN ([id number]) 1960 F Date Time Provider Department 08/22/24 3:15 PM EMILY CARIAS During your visit today, we recorded the following information about you: Temperature Pulse Respiration Blood pressure 98.7 degrees 93/minute 16/minute 135/84 Weight 68.6 kg Emily Carias APRN.CNP 08/22/2024 3:49 PM Signed [facility] PATIENT NAME: Ana Larkin DATE OF : 1960 TODAYS' DATE: 08/22/2024 Subjective: Ms. Larkin is a 64 year old female Patient presents with: Upper Respiratory Infection: Ear pain, chest feels tight, has been 3-4 days ago History of Present Illness: The history is provided by the patient. No school speech language pathologist was used. Upper Respiratory Infection This is a new problem. The current episode started in the past 7 days (3-4 days ago). The problem occurs constantly. The problem has been unchanged. Associated symptoms include congestion, coughing, headaches and a sore throat. Pertinent negatives include no chills, fever, nausea or vomiting. Associated symptoms comments: + sick contacts at work . She has tried NSAIDs (Zyrtec) for the symptoms. The treatment provided mild relief. Review of Systems: Review of Systems Constitutional: Negative for chills and fever. HENT: Positive for congestion, ear pain, rhinorrhea and sore throat. Negative for sinus pressure. Respiratory: Positive for cough. Gastrointestinal: Negative for diarrhea, nausea and vomiting. Neurological: Positive for headaches. Allergies: Allergies: Ticagrelor Shortness of Breath Atorvastatin Myalgia Comment:Myalgia with 20mg daily Clopidogrel Other: See Comments Erythromycin Hives, Itching Hctz [Thiazides] GI Upset, Other: See Comments Comment:Extreme dizziness Imitrex [Sumatripta* Anaphylaxis Comment:Throat swollen, sob, had to get shot of epi last time. Levaquin [Levofloxa* GI Upset Nitrofurantoin Other: See Comments, GI Upset Comment:Patient reported. Oxycodone Other: See Comments Comment:Makes very hyper Pravastatin Unknown Comment:Leg pain Pseudoephedrine-Gua* GI Upset Comment:Patient reported Vicodin [Hydrocodon* Intolerance Comment:Can't sleep Cephalosporins Unknown Citalopram Other: See Comments, Unknown Comment:Patient reported Estradiol GI Upset Comment:Pt sts dizzy and nausea Hctz [Triamterene-H* GI Upset Sertraline Other: See Comments Comment:[place] Sucralfate GI Upset Comment:Patient reported Triamterene Vomiting Past Medical History: PAST MEDICAL HISTORY Diagnosis Date Fibroids May 2011 Laparoscopic supracervical hysterectomy GERD (gastroesophageal reflux disease) Hypertension Dr. MEJIA Menorrhagia May 2011 Laparoscopic supracervical hysterectomy Migraines Past Surgical History: PAST SURGICAL HISTORY Procedure Laterality Date , LOW, ANTE/POST CARE October 1999 And tubal ligation HYSTERECTOMY HX LAPAROSCOPIC SUPRACERVICAL HYSTERECTOMY May 2011 BSO, cystoscopy. SALPINGECTOMY Family History: No family history on file. Tobacco History: Tobacco Use: Never Medications: Current Outpatient Medications Medication Sig Dispense Refill aspirin 325 mg tablet Take 1 tablet by mouth once daily. 10 tablet 0 Amlodipine-Benazepril (LOTREL) 10-40 mg ORAL per capsule Take 1 capsule by mouth once daily. 30 capsule 4 benzonatate (TESSALON PERLES) 100 mg capsule Take 2 capsules by mouth three times a day as needed. (Patient not taking: Reported on 08/22/2024) 30 capsule 0 fluticasone (FLONASE ALLERGY RELIEF) 50 mcg/actuation nasal spray Use 1 [place] in each nostril once daily. (Patient not taking: Reported on 08/22/2024) 11.1 mL 0 guaiFENesin (MUCINEX) 600 mg 12 hr tablet Take 1 tablet by mouth twice daily. (Patient not taking: Reported on 08/22/2024) 30 tablet 0 No current facility-administered medications for this visit. Vitals: BP 135/84 Pulse 93 Temp 37.1 ?C (98.7 ?F) Resp 16 Wt 68.6 kg (151 lb 5.5 oz) LMP 04/05/2011 SpO2 96% BMI 27.68 kg/m? Physical Exam: Physical Exam Vitals and nursing note reviewed. Constitutional: General: She is not in acute distress. HENT: Head: Normocephalic. Right Ear: Ear canal and external ear normal. A middle ear effusion is present. Left Ear: Tympanic membrane, ear canal and external ear normal. Nose: Mucosal edema present. Mouth/Throat: Mouth: Mucous membranes are moist. Pharynx: Uvula midline. Posterior oropharyngeal erythema (slight) present. Cardiovascular: Rate and Rhythm: Normal rate and regular rhythm. Pulmonary: Effort: Pulmonary effort is normal. Breath sounds: Normal breath sounds. Neurological: Mental Status: She is alert. Psychiatric: Behavior: Behavior is cooperative. Labs: COVID/FLU/RSV-pending Procedures ASSESSMENT/PLAN: 1. Acute upper respiratory infection (more content not included)... Normal [facility] Cardiology Visit Reporton Cardiology Visit Report [facility] [address] [place] [address] OFFICE VISIT Date of Service: 04/09/24 MR#: [id number] Acct: [id number] Name: ANA LARKIN Rep #: [id number] : 1960 Provider: CARLY Herndon Age/Sex: 63/F Location: [facility] Status: Signed HPI HPI History of Present Illness Details: ANA LARKIN, is a 63 F who presents to the office today for a follow-up visit. She is a lady with a history of coronary artery disease status post angioplasty and stenting of the left anterior descending artery in January 2017. She also has a hx of hypertension and hyperlipidemia. She does not have any chest discomfort/heaviness/ tightness. Her exercise tolerance is stable for her age. She does not have any worsening symptoms of shortness of breath. She does not have any orthopnea. She denies PND. She does not have any symptoms of congestive heart failure. She does not have any palpitations that she is aware of. She does not have any lightheadedness or dizziness. She does not have any near-syncope or syncope. She does not have any lower extremity edema. She does not have any symptoms of claudication. 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 Intake Vital Signs 03/13/23 08:57 04/09/24 08:24 Height 5 ft 4 in 5 ft 4 in Weight: 152 lb BMI 26.1 BP 128/81 H Blood Pressure Location Rt brachial Position Sitting Respiration 18 Pulse 80 Pulse Source Monitor Pulse Oximetry (%) 96 Intake Visit Reasons: 1 Y [employer] Childcare Attendant Required: No Is patient in pain?: No Allergies sumatriptan (From Imitrex) Allergy (Severe, Verified 04/09/24 08:24) asthma, SOB Cephalosporins Allergy (Mild, Verified 04/09/24 08:24) Unknown citalopram (From Celexa) Allergy (Mild, Verified 04/09/24 08:24) Unknown dextromethorphan (From Entex PAC) Allergy (Mild, Verified 04/09/24 08:24) NEEDS FOLLOW-UP erythromycin base Allergy (Mild, Verified 04/09/24 08:24) Hives estradiol Allergy (Mild, Verified 04/09/24 08:24) nausea and vomiting gatifloxacin Allergy (Mild, Verified 04/09/24 08:24) Unknown guaifenesin (From Entex PAC) Allergy (Mild, Verified 04/09/24 08:24) NEEDS FOLLOW-UP levofloxacin (From Levaquin) Allergy (Mild, Verified 04/09/24 08:24) headaches pseudoephedrine (From Entex PAC) Allergy (Mild, Verified 04/09/24 08:24) NEEDS FOLLOW-UP sertraline Allergy (Mild, Verified 04/09/24 08:24) pt felt dope sucralfate Allergy (Mild, Verified 04/09/24 08:24) nausea and vomiting triamterene Allergy (Mild, Verified 04/09/24 08:24) nausea and vomiting ezetimibe (From Zetia) Allergy (Verified 04/09/24 08:24) Other ticagrelor (From Brilinta) Allergy (Verified 04/09/24 08:24) Shortness of breath acetaminophen (From Vicodin) Adverse Reaction (Mild, Verified 04/09/24 08:24) Unknown hydrochlorothiazide Adverse Reaction (Mild, Verified 04/09/24 08:24) Nausea and vomiting hydrocodone (From Vicodin) Adverse Reaction (Mild, Verified 04/09/24 08:24) Unknown atorvastatin (From Lipitor) Adverse Reaction (Verified 04/09/24 08:24) myalgia clopidogrel (From Plavix) Adverse Reaction (Verified 04/09/24 08:24) Skin peeling: oxycodone (From Percocet) Adverse Reaction (Verified 04/09/24 08:24) Other Medications ???Medication ???Instructions ???Recorded ???Confirmed ???Type aspirin 81 mg tablet,delayed 81 mg PO QDAY #90 tabs 12/10/18 04/09/24 Rx release (Adult Low Dose Aspirin) Lotrel 10 mg-40 mg capsule 1 cap PO DAILY Pt cannot take 02/05/24 04/09/24 Rx (amlodipine-benazepri l) generic went to ER with tachycardia #90 caps PFSH Medical History Essential (primary) hypertension Diabetes type 2, uncontrolled Tearing of muscle Irritable bowel syndrome Diverticulitis Panic attack DM (diabetes mellitus) Hypothyroidism HLD (hyperlipidemia) Chest pain, unspecified Shortness of breath Atherosclerotic heart disease of [place] coronary artery without angina pectoris Surgical History History of colonoscopy History of hysterectomy History of coronary artery stent placement (01/29/17) Family History Father Myocardial infarction, Onset Age: 75 Daughter Breast cancer Other Hypertension Social History Smoking Status: Never smoker alcohol intake: never substance use type: does not use caffeine: Yes Type: tea Number of servings: 2 what type of physical activity do you participate in: walking frequency: daily duration: 15-30 minutes/day seatbelt use: always do you feel safe at home: Yes ROS Const Const: Positive for fatigue; Negative for weakness, (more content not included)... Normal [facility] Lipid Profileon 04-09-2024 Cholesterol [Mass/Vol] 230 mg/dL High 200 [facility] Comment on above: Order Comment: Comme nts: okay to do non fasting Result Comment: <200 mg/dL Desirable 200-240 mg/dL Borderline >240 mg/dL High Risk Performed By: #### L 500.4100 #### [facility] [place], [address] Cholesterol in HDL [Mass/Vol] 50 mg/dL Normal [facility] Comment on above: Order Comment: Comme nts: okay to do non fasting Result Comment: The drugs N-Acetylcysteine and Metamizole may falsely depress this assay. Reference Range HDL <40 mg/dL Low HDL Cholesterol HDL >or= 60 mg/dL High HDL Cholesterol Performed By: #### L 500.4100 #### [facility] [address] [place], [address] Cholesterol in LDL [Mass/Vol] 151 mg/dL High 0-130 [facility] Comment on above: Order Comment: Comme nts: okay to do non fasting Performed By: #### L 500.4100 #### [facility] [address] [place], [address] Cholesterol in VLDL [Mass/Vol] 29 mg/dL Normal 5-40 [facility] Comment on above: Order Comment: Comme nts: okay to do non fasting Performed By: #### L 500.4100 #### [facility] [address] [place], [address] Triglyceride [Mass/Vol] 147 mg/dL Normal [facility] Comment on above: Order Comment: Comme nts: okay to do non fasting Result Comment: The drugs N-Acetylcysteine and Metamizole may falsely depress this assay. Serum Triglycerides Reference Interval Normal <150 mg/dL Borderline high 150 - 199 mg/dL High 200 - 499 mg/dL Very High > or = 500 mg/dL Performed By: #### L 500.4100 #### [facility] [address] 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 Pt reports that pain is constant pain that is increased with all movement, sitting and positional changes. Pt reports that she had an episode of similar pain 5 years ago and told she has arthritis in [facility] ED Provider Noteon ED Provider Note [facility] ED EMERGENCY DEPARTMENT ENCOUNTER Pt Name: Ana Larkin Birthdate 1960 Date of evaluation: 08/21/2023 Provider: Jose Tanner MD CHIEF COMPLAINT Chief Complaint Patient presents with Hip Pain HISTORY OF PRESENT ILLNESS I wore proper PPE for the entirety of this encounter. Ana Larkin is a 63 y.o. female who presents to the emergency department with atraumatic right hip pain that is acute on chronic and worse today. No recent falls or injuries or unusual activity. No weakness in the right lower extremity. Pt denies weakness or numbness, fever, night sweats, saddle anesthesia, incontinence, weight loss, history of cancer, history of IV drug use. She has not yet taken anything for pain. Nursing Notes were reviewed. REVIEW OF SYSTEMS Constitutional: as noted in HPI, and negative for fever/chills Eyes: as noted in HPI, and negative for vision changes ENT: as noted in HPI, and negative for cough CV: as noted in HPI, and negative for chest pain, negative for palpitations Resp: as noted in HPI, and negative for shortness of breath GI: as noted in HPI, and negative for abd pain, negative for n/v/d : as noted in HPI, and negative for urinary symptoms MSK: as noted in HPI Skin: as noted in HPI, and negative for rash Neuro: as noted in HPI, and negative for headaches, negative for acute focal weakness/numbness PAST MEDICAL HISTORY History reviewed. No pertinent past medical history. SURGICAL HISTORY History reviewed. No pertinent surgical history. CURRENT MEDICATIONS Previous Medications No medications on file ALLERGIES E.e.s. [erythromycin], Hydrocodone, and Percocet [oxycodone-acetaminop hen] FAMILY HISTORY No family history on file. SOCIAL HISTORY Social History Socioeconomic History Marital status: Single Tobacco Use Smoking status: Never Smokeless tobacco: Never Substance and Sexual Activity Drug use: Never SCREENINGS PHYSICAL EXAM ED Triage Vitals [08/21/23 1235] Temp Heart Rate Resp BP 36.3 ?C (97.3 ?F) 107 18 (!) 171/102 SpO2 Temp Source Heart Rate Source Patient Position 97 % Oral -- Lying BP Location FiO2 (%) Right arm -- Constitutional: No acute distress HEENT:Head: Atraumatic/normocepha lic Eyes: Conjunctivae normal. ENT: Mucous membranes moist. Neck: Normal ROM, supple CV: RRR RESP: CTAB, good respiratory effort, no increased wob GI: Abdomen soft, non-tender, non-distended, +BS, no guarding or rebound tenderness MSK: Normal bulk and tone, no gross deformity BACK: No CVA tenderness. No C/T/L-spine tenderness. Mild tenderness of the low L-spine just above the right iliac crest EXTR: Warm and well perfused, no edema SKIN: No rash/bruising/erythem a PSYCH: Appropriate affect, cooperative behavior NEURO: Alert and oriented x 3, face symmetric, no slurred speech L1-L2 Inner thigh sensation intact L2 Adduct Thigh (cross legs) 5/5 L3 Extend Knee 5/5 bilaterally L4 Dorsiflex Ankle (Up) 5/5 bilaterally L5 Point Great Toe Up 5/5 bilaterally L2 L3-L4 Knee Reflex intaxt S1 Flex Knee 5/5 bilaterally S2 Plantarflex Toes 5/5 bilaterally S3, 4, 5 Groin, Perianal Sensation intact DIAGNOSTIC RESULTS Interpretation per the Radiologist below, if available at the time of this note: No orders to display LABS: Labs Reviewed - No data to display EMERGENCY DEPARTMENT COURSE and DIFFERENTIAL DIAGNOSIS/MDM: Vitals: Vitals: 08/21/23 1235 BP: (!) 171/102 BP Location: Right arm Patient Position: Lying Pulse: 107 Resp: 18 Temp: 36.3 ?C (97.3 ?F) TempSrc: Oral SpO2: 97% Weight: 68.9 kg (152 lb) Medications Lidocaine 4 % patch 1 patch (1 patch TransDERmal Medication Applied 08/21/23 1247) acetaminophen (Tylenol) tablet 1,000 mg (1,000 mg Oral Given 08/21/23 1247) ketorolac (Toradol) injection 15 mg (15 mg IntraMUSCular Given 08/21/23 1247) I personally saw the patient and performed a substantive portion of the visit including all aspects of the medical decision making. Patient appears nontoxic. Mildly hypertensive and tachycardic likely secondary to pain. I ordered Toradol 15 mg IM, Tylenol 1 g p.o. and lidocaine patch for pain. Patient subsequent felt moderately improved. Ambulatory in the ED. I completed a structured, evidence-based clinical evaluation to screen for acute non-traumatic spinal emergencies. The patient has a normal detailed neurologic exam and a low red flag score (as outlined by [facility]' low back pain CMT). The evidence indicates that the patient is very low risk for an acute spinal emergency and this is consistent with my clinical intuition. The risk of further workup is higher than the likelihood of the patient having a spinal epidural abscess or other dangerous emergency spinal condition. It is, therefore, in the patient?s best interest not to do additional emergent testing at this time. Differential diagnoses includes lumbago versus musculoskeletal spasm (more content not included)... Normal [facility] No Panel Informationon 10-18 [facility] XR CHEST 2V FRONTAL/LATon XR CHEST 2V FRONTAL/LAT * * *Final Report* * * DATE OF EXAM: Oct 18 2021 1:20PM MDX 5291 - XR CHEST 2V FRONTAL/LAT / PROCEDURE REASON: J06.9-Viral URI with cough * * * * Physician Interpretation * * * * EXAMINATION: CHEST RADIOGRAPH (2 VIEW FRONTAL and LATERAL) CLINICAL HISTORY: Viral URI with cough MQ: [id number] EXAM DATE/TIME: 10/18/2021 1:20 PM COMPARISON: Comparison is made to prior 2 view chest dated 09/24/2016 and 07 January 2012 RESULT: Lines, tubes, and devices: None. Lungs and pleura: Mild chronic interstitial lung changes with lingular and left basilar fibrotic scarring is stable dating back to 2016. There is no focal consolidation or acute pleural process. There is no vascular redistribution to suggest pulmonary edema. Cardiomediastinal silhouette: Unchanged cardiomediastinal silhouette with unfolded descending thoracic aorta. Bones and soft tissues: The soft tissues and bony structures are unremarkable without apparent acute process. IMPRESSION: Stable chest. No acute cardiopulmonary process. Pressure Steamer Tender: CYNTHIA Transcribe Date/Time: Oct 18 2021 1:42P Dictated by : JEN RAND MD This examination was interpreted and the report reviewed and electronically signed by: JEN RAND MD on Oct 18 2021 1:45PM EST [id number] N [facility] Office Visiton 02-13-2017 Documentation of current medications (procedure) Done Invalid Interpretation Code [facility] Work Phone: [phone] Fall risk assessment No Invalid Interpretation Code [employer] Work Phone: [phone] Protein mass conc Done Invalid Interpretation Code [facility] Work Phone: [phone] Replaced Document: [employer] E CG Observationson 02-13-2017 EKG QRS axis 78 deg Invalid Interpretation Code [facility] Work Phone: [phone] electrocardiogram interpretation Sinus Rhythm - Nonspecific T-abnormality. ABNORMAL Invalid Interpretation Code [employer] Work Phone: [phone] GE use only - for LinkLogic import when terms are not otherwise specified 411 ms Invalid Interpretation Code [employer] Work Phone: [phone] Interpretation Sinus Rhythm - Nonspecific T-abnormality. ABNORMAL Invalid Interpretation Code [employer] Work Phone: [phone] P [place] 26 deg Invalid Interpretation Code [employer] Work Phone: [phone] P wave axis, electrocardiogram 26 deg Invalid Interpretation Code [employer] Work Phone: [phone] ME Interval 158 ms Invalid Interpretation Code [employer] Work Phone: [phone] ME interval, electrocardiogram 158 ms Invalid Interpretation Code [employer] Work Phone: [phone] Pulse (Heart Rate) 94 /min Invalid Interpretation Code [employer] Work Phone: [phone] QRS axis, electrocardiogram 78 deg Invalid Interpretation Code [employer] Work Phone: [phone] QRS Duration 96 ms Invalid Interpretation Code [employer] Work Phone: [phone] QRS duration, electrocardiogram 96 ms Invalid Interpretation Code [employer] Work Phone: [phone] QT Interval new path ms Invalid Interpretation Code [employer] Work Phone: [phone] QT interval, electrocardiogram new path ms Invalid Interpretation Code [employer] Work Phone: [phone] QTc Caro 411 ms Invalid Interpretation Code [employer] Work Phone: [phone] T Avenel 122 deg Invalid Interpretation Code [employer] Work Phone: [phone] T wave axis, electrocardiogram 122 deg Invalid Interpretation Code [employer] Work Phone: [phone]) Lab Report: Basic Metabolic Profile (BMP)on 01-30-2017 Anion gap 12 mmol/L Invalid Interpretation Code 5-15 [facility] Work Phone: [phone] Anion gap 4 molar conc 12 Invalid Interpretation Code 5-15 [facility] Work Phone: [phone] Anion gap molar conc 12 mmol/L 5-[address] [facility] Work Phone: [phone] BUN/Creatinine Ratio 11.5 RATIO Invalid Interpretation Code 10-20 [employer] Work Phone: [phone] Calcium 9.1 mg/dL Invalid Interpretation Code 8.5-10.1 [employer] Work Phone: [phone] Chloride 101 mmol/L Invalid Interpretation Code 98-107 [employer] Work Phone: [phone] CO2 24.0 mmol/L Invalid Interpretation Code 21.0-32.0 [employer] Work Phone: [phone] CO2 ppres (BldV) 24.0 mmol/L Invalid Interpretation Code 21.0-32.0 [employer] Work Phone: [phone] Creatinine 68.21 mL/min Invalid Interpretation Code [employer] Phone: [phone] Creatinine 0.78 mg/dL Invalid Interpretation Code 0.55-1.02 [employer] Phone: [phone] eGFR (non-black) 99 mL/min/{1.73_m2} Invalid Interpretation Code >60 [employer] Work Phone: [phone] eGFR (non-black) 81 mL/min/{1.73_m2} Invalid Interpretation Code >60 [employer] Work Phone: [phone] EST GFR - AA 99 mL/min Invalid Interpretation Code >60 [employer] Work Phone: [phone] Glucose 153 mg/dL High 70-110 [employer] Work Phone: [phone] Glucose mass conc 153 mg/dL High 70-110 [employer] Work Phone: [phone] Potassium 4.1 mmol/L Invalid Interpretation Code 3.5-5.1 [employer] Work Phone: [phone] Sodium 137 mmol/L Invalid Interpretation Code 136-145 [employer] Work Phone: [phone] Urea nitrogen 9 mg/dL Invalid Interpretation Code 7-18 [employer] Work Phone: [phone] Lab Report: CBC-Complete Blo od Cnt No Diffon 01-30-2017 Erythrocyte distribution width Auto Ratio (RBC) 40.8 fL Invalid Interpretation Code 35.1-43.9 [employer] Work Phone: [phone] Erythrocyte distribution width Ratio (RBC) 40.8 fL 35.1-43.9 [facility] Work Phone: [phone] Erythrocyte distribution width Ratio (RBC) 12.7 % 11.6-14.6 [facility] Work Phone: [phone] Erythrocytes (RBC) 5.16 10*6/uL Invalid Interpretation Code 4.2-5.4 [facility] Work Phone: [phone] Hematocrit (HCT) 45.3 % Invalid Interpretation Code 37-47 [facility] Work Phone: [phone] Hematocrit Volume Fraction (Bld) 45.3 % 37-47 [facility] Work Phone: [phone]) Hemoglobin (HGB) 15.3 g/dL High 12.0-15.0 [facility] Work Phone: [phone] MCH 29.7 pg Invalid Interpretation Code 27.0-32.0 [facility] Work Phone: [phone]) MCH Entitic mass (RBC) 29.7 pg 27.0-32.0 [facility] Work Phone: [phone]) MCHC 33.8 G/GL Invalid Interpretation Code 32-36 [facility] Work Phone: [phone]) MCHC mass conc (RBC) 33.8 G/GL 32-[address] [facility] [address] [facility] Work Phone: [phone]) MCV 87.8 fL Invalid Interpretation Code 81-99 [facility] Work Phone: [phone]) MCV Entitic volume (RBC) 87.8 fL 81-99 [facility] Work Phone: [phone]) Platelet mean volume Entitic volume (Bld) 10.5 fL 6.2-12.0 [facility] Work Phone: [phone] Platelets 344 10*3/mm3 Invalid Interpretation Code 150-450 [facility] Work Phone: [phone] Platelets #/vol (Bld) 344 10*3/mm3 150-450 [facility] Work Phone: [phone] 00 PMV by Chayito 10.5 fL Invalid Interpretation Code 6.2-12.0 [facility] Work Phone: [phone] RBC #/vol (Bld) 5.16 10*6/uL 4.2-5.4 [employer] Work Phone: [phone] RDW-CA 12.7 % Invalid Interpretation Code 11.6-14.6 [employer] Work Phone: [phone] red blood cell distribution width, size density 40.8 fL Invalid Interpretation Code 35.1-43.9 [employer] Work Phone: [phone] WBC #/vol (Bld) 10.2 10*3/uL 4.4-11.0 [employer] Work Phone: [phone] WBC (Leukocytes) 10.2 10*3/uL Invalid Interpretation Code 4.4-11.0 [employer] Work Phone: [phone]) Lab Report: ACT Activated Cl otting Timeon 01-29-2017 ACTk CLOT TIME 318 sec High 74-137 [employer] Work Phone: [phone] GE use only - for Link[employer] import when terms are not otherwise specified 318 sec High 74-137 [employer] Work Phone: [phone] Clinical Lists Update: Clini riki Noteon 01-19-2017 Left ventricular Ejection fraction 60 % Invalid Interpretation Code [employer] Work Phone: [phone] Lab Report: Basic Metabolic Profile (BMP)on 01-19-2017 Anion gap 7 mmol/L Invalid Interpretation Code 5-15 [employer] Work Phone: [phone] Anion gap molar conc 7 mmol/L 5-[address] [facility] Work Phone: [phone] BUN/Creatinine Ratio 15.8 RATIO 10-[address] [facility] Work Phone: [phone] Calcium 8.8 mg/dL 8.5-10.1 [employer] Work Phone: [phone] Chloride 105 mmol/L 98-107 [employer] Work Phone: [phone] CO2 27.0 mmol/L Invalid Interpretation Code 21.0-32.0 [employer] Work Phone: [phone] CO2 ppres (BldV) 27.0 mmol/L 21.0-32.0 [employer] Work Phone: [phone] Creatinine 0.89 mg/dL 0.55-1.02 [employer] Work Phone: [phone] eGFR (non-black) 71 mL/min/{1.73_m2} >60 [employer] Work Phone: [phone] eGFR (non-black) 85 mL/min/{1.73_m2} Invalid Interpretation Code >60 [employer] Work Phone: [phone] EST GFR - AA 85 mL/min >60 [employer] Work Phone: [phone] Glucose 188 mg/dL High 70-110 [employer] Work Phone: [phone] Glucose mass conc 188 mg/dL High 70-110 [employer] Work Phone: [phone] Potassium 3.7 mmol/L 3.5-5.1 [employer] Work Phone: [phone] Sodium 139 mmol/L 136-145 [employer] Work Phone: [phone] Urea nitrogen 14 mg/dL 7-18 [employer] Work Phone: [phone] Lab Report: CBC-Complete Blo od Cnt No Diffon 01-19-2017 Erythrocyte distribution width Ratio (RBC) 13.0 % 11.6-14.6 [employer] Phone: [phone] Erythrocyte distribution width Ratio (RBC) 42.2 fL 35.1-43.9 [employer] Work Phone: [phone] Erythrocytes (RBC) 4.75 10*6/uL Invalid Interpretation Code 4.2-5.4 [employer] Work Phone: [phone] Hematocrit (HCT) 42.1 % Invalid Interpretation Code 37-47 [employer] Work Phone: [phone] Hematocrit Volume Fraction (Bld) 42.1 % 37-47 [employer] Work Phone: [phone] Hemoglobin (HGB) 13.9 g/dL 12.0-15.0 [employer] Work Phone: [phone] MCH 29.3 pg Invalid Interpretation Code 27.0-32.0 [facility] Work Phone: [phone] MCH Entitic mass (RBC) 29.3 pg 27.0-32.0 [facility] Work Phone: [phone] MCHC 33.0 G/GL Invalid Interpretation Code 32-36 [facility] Work Phone: [phone] MCHC mass conc (RBC) 33.0 G/GL 32-[address] [facility] [address] [facility] Work Phone: [phone] MCV 88.6 fL Invalid Interpretation Code 81-99 [facility] Work Phone: [phone] MCV Entitic volume (RBC) 88.6 fL 81-99 [facility] Work Phone: [phone] Platelet mean volume Entitic volume (Bld) 10.5 fL 6.2-12.0 [facility] Work Phone: [phone] Platelets 312 10*3/mm3 Invalid Interpretation Code 150-450 [facility] Work Phone: [phone] Platelets #/vol (Bld) 312 10*3/mm3 150-450 [facility] Work Phone: [phone] PMV by Chayito 10.5 fL Invalid Interpretation Code 6.2-12.0 [facility] Work Phone: [phone] RBC #/vol (Bld) 4.75 10*6/uL 4.2-5.4 [facility] Work Phone: [phone] RDW-CA 13.0 % Invalid Interpretation Code 11.6-14.6 [facility] Work Phone: [phone] red blood cell distribution width, size density 42.2 fL Invalid Interpretation Code 35.1-43.9 [facility] Work Phone: [phone] WBC #/vol (Bld) 8.1 10*3/uL 4.4-11.0 [facility] Work Phone: [phone] WBC (Leukocytes) 8.1 10*3/uL Invalid Interpretation Code 4.4-11.0 [facility] Work Phone: [phone] Office Visit: Fco 01-20-20 17 Documentation of current medications (procedure) Done Invalid Interpretation Code [facility] Work Phone: Fall risk assessment No [facility] Work Phone: Protein mass conc Done [facility] Work Phone: Replaced Document: Darcie ARROYO Observationson 01-19-2017 EKG QRS axis 20 deg [facility] Work Phone: electrocardiogram interpretation Sinus Rhythm - Nonspecific T-abnormality. ABNORMAL Invalid Interpretation Code [facility] Work Phone: GE use only - for [employer] import when terms are not otherwise specified 398 ms Invalid Interpretation Code [facility] Work Phone: Interpretation Sinus Rhythm - Nonspecific T-abnormality. ABNORMAL [facility] Work Phone: P Avenel 13 deg [facility] Work Phone: P wave axis, electrocardiogram 13 deg Invalid Interpretation Code [facility] Work Phone: ME Interval 156 ms [facility] Work Phone: ME interval, electrocardiogram 156 ms Invalid Interpretation Code [facility] Work Phone: Pulse (Heart Rate) 91 /min Invalid Interpretation Code [facility] Work Phone: QRS axis, electrocardiogram 20 deg Invalid Interpretation Code [facility] Work Phone: QRS Duration 96 ms [facility] Work Phone: QRS duration, electrocardiogram 96 ms Invalid Interpretation Code [facility] Work Phone: QT Interval new path ms [facility] Work Phone: QT interval, electrocardiogram new path ms Invalid Interpretation Code [facility] Work Phone: QTc Caro 398 ms [facility] Work Phone: T Avenel -1 deg [facility] Work Phone: T wave axis, electrocardiogram -1 deg Invalid Interpretation Code [facility] Work Phone: Office Visiton 10-04-2016 Documentation of current medications (procedure) Done Invalid Interpretation Code [facility] Work Phone: [phone] Fall risk assessment Fall risk assessment Invali d Interpretation Code [facility] Work Phone: [phone] Replaced Document: Darcie Oliver 10-04-2016 electrocardiogram interpretation 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 ABNORMAL Invalid Interpretation Code [facility] Work Phone: [phone] GE use only - for [employer] import when terms are not otherwise specified 398 ms Invalid Interpretation Code [facility] Work Phone: [phone] P wave axis, electrocardiogram 20 deg Invalid Interpretation Code [facility] Work Phone: [phone] ME interval, electrocardiogram 156 ms Invalid Interpretation Code [facility] Work Phone: [phone] Pulse (Heart Rate) 68 /min Invalid Interpretation Code [facility] Work Phone: [phone] QRS axis, electrocardiogram 17 deg Invalid Interpretation Code [facility] Work Phone: [phone] QRS duration, electrocardiogram 96 ms Invalid Interpretation Code [facility] Work Phone: [phone] QT interval, electrocardiogram new path ms Invalid Interpretation Code [facility] Work Phone: [phone] T wave axis, electrocardiogram -1 deg Invalid Interpretation Code [facility] Work Phone: [phone] Clinical Lists Update: 10-03-2016 Tobacco smoking status NHIS Never smoker Invalid Interpretation Code [facility] Work Phone: [phone] Tobacco use CPHS Never smoker Invalid Interpretation Code [facility] Work Phone: [phone] Clinical Lists Update: 08-02-2016 Cholesterol 233 mg/dL Invalid Interpretation Code [facility] Work Phone: [phone] HDL Cholesterol 36 mg/dL Invalid Interpretation Code [facility] Work Phone: [phone] LDL Cholesterol 160 mg/dL Invalid Interpretation Code [facility] Work Phone: [phone] Triglyceride 184 mg/dL Invalid Interpretation Code [facility] Work Phone: [phone] Vital Signs Date Time Vital Sign Value Performing Clinician Facility 08-22-2024 15:23-0400 Body mass index (BMI) [Ratio] 27.68 kg/m2 Emily Carias APRN.CNP Work Phone: [facility] 08-22-2024 15:23-0400 Body temperature 98.71 [degF] Emily Larouere HEAD RIGGER.LAWN SPRINKLER INSTALLER Work Phone: [facility] 08-22-2024 15:23-0400 Body weight 68.65 kg Emily Larouere HEAD RIGGER.[employer] SPRINKLER INSTALLER Work Phone: [facility] 08-22-2024 15:23-0400 Diastolic blood pressure 84 mm[Hg] Emily Larouere HEAD RIGGER.LAWN SPRINKLER INSTALLER Work Phone: [facility] 08-22-2024 15:23-0400 Heart rate 93 /min Emily Larouere HEAD RIGGER.LAWN SPRINKLER INSTALLER Work Phone: [facility] 08-22-2024 15:23-0400 Respiratory rate 16 /min Emily Larouere HEAD RIGGER.LAWN SPRINKLER INSTALLER Work Phone: [facility] 08-22-2024 15:23-0400 SaO2% (BldA) [Mass fraction] 96 % Emily Larouere HEAD RIGGER.[employer]WN SPRINKLER INSTALLER Work Phone: [facility] 08-22-2024 15:23-0400 Systolic blood pressure 135 mm[Hg] Emily Larouere HEAD RIGGER.[employer]WN SPRINKLER INSTALLER Work Phone: [facility] 08-21-2023 13:39-0400 Diastolic blood pressure 91 mm[Hg] Jose Tanner MD Work Phone: [facility] 08-21-2023 13:39-0400 Heart rate 89 /min Jose Tanner MD Work Phone: [facility] 08-21-2023 13:39-0400 Respiratory rate 16 /min Jose Tanner MD Work Phone: [facility] 08-21-2023 13:39-0400 SaO2% (BldA) [Mass fraction] 98 % Jose Tanner MD Work Phone: [facility] [employer] 08-21-2023 13:39-0400 Systolic blood pressure 156 mm[Hg] Jose Tanner MD Work Phone: [facility] 08-21-2023 12:35-0400 Body temperature 97.3 [degF] Jose Tanner MD Work Phone: [facility] 08-21-2023 12:35-0400 Body weight 68.95 kg Jose Tanner MD Work Phone: [facility] 04-17-2023 14:35-0500 Body height 157.5 cm Dayanna Vera HEAD RIGGER.[employer]WN SPRINKLER INSTALLER Work Phone: [facility] 04-17-2023 14:35-0500 Body temperature 98.2 [degF] Dayanna Vear HEAD RIGGER.LAWN SPRINKLER INSTALLER Work Phone: [facility] 04-17-2023 14:35-0500 Body weight 68.95 kg Dayanna Vera HEAD RIGGER.[employer]WN SPRINKLER INSTALLER Work Phone: [facility] 04-17-2023 14:35-0500 Diastolic blood pressure 77 mm[Hg] Dayanna Vera HEAD RIGGER.[employer]WN SPRINKLER INSTALLER Work Phone: [facility] 04-17-2023 14:35-0500 Heart rate 82 /min Dayanna Vera HEAD RIGGER.[employer]WN SPRINKLER INSTALLER Work Phone: [facility] 04-17-2023 14:35-0500 Respiratory rate 16 /min Dayanna Vera HEAD RIGGER.[employer]WN SPRINKLER INSTALLER Work Phone: [facility] 04-17-2023 14:35-0500 SaO2% (BldA) [Mass fraction] 98 % Dayanna Vera HEAD RIGGER.[employer]WN [employer]INKLER INSTALLER Work Phone: [facility] 04-17-2023 14:35-0500 Systolic blood pressure 132 mm[Hg] Dayanna Vera HEAD RIGGER.LAWN SPRINKLER INSTALLER Work Phone: [facility] 01-29-2023 16:06-0400 Body height 157.5 cm Linh Aly HEAD RIGGER.[employer]WN SPRINKLER INSTALLER Work Phone: [facility] 01-29-2023 16:06-0400 Body weight 68.04 kg Linh Aly HEAD RIGGER.[employer]WN SPRINKLER INSTALLER Work Phone: [facility] 01-29-2023 16:06-0400 Diastolic blood pressure 70 mm[Hg] Linh Aly HEAD RIGGER.LAWN SPRINKLER INSTALLER Work Phone: [facility] 01-29-2023 16:06-0400 Heart rate 87 /min Linh Aly HEAD RIGGER.[employer]WN [employer]INKLER INSTALLER Work Phone: [facility] 01-29-2023 16:06-0400 Respiratory rate 16 /min Linh Aly HEAD RIGGER.[employer]WN SPRINKLER INSTALLER Work Phone: [facility] 01-29-2023 16:06-0400 SaO2% (BldA) [Mass fraction] 96 % Linh Aly HEAD RIGGER.[employer]WN SPRINKLER INSTALLER Work Phone: [facility] 01-29-2023 16:06-0400 Systolic blood pressure 114 mm[Hg] Linh Aly HEAD RIGGER.LAWN SPRINKLER INSTALLER Work Phone: [facility] 05-01-2022 09:34-0500 Body height 157.5 cm Randolph [place] HEAD RIGGER.LAWN SPRINKLER INSTALLER Work Phone: [facility] 05-01-2022 09:34-0500 Body temperature 96.91 [degF] Randolph [place] HEAD RIGGER.LAWN SPRINKLER INSTALLER Work Phone: [facility] 05-01-2022 09:34-0500 Body weight 70.76 kg Randolph [place] HEAD RIGGER.LAWN SPRINKLER INSTALLER Work Phone: [facility] 05-01-2022 09:34-0500 Diastolic blood pressure 84 mm[Hg] Randolph [place] HEAD RIGGER.LAWN SPRINKLER INSTALLER Work Phone: [facility] 05-01-2022 09:34-0500 Heart rate 82 /min Randolph [place] HEAD RIGGER.LAWN SPRINKLER INSTALLER Work Phone: [facility] 05-01-2022 09:34-0500 Respiratory rate 18 /min Randolph [place] HEAD RIGGER.LAWN SPRINKLER INSTALLER Work Phone: [facility] 05-01-2022 09:34-0500 SaO2% (BldA) [Mass fraction] 100 % Randolph [place] HEAD RIGGER.LAWN SPRINKLER INSTALLER Work Phone: [facility] 05-01-2022 09:34-0500 Systolic blood pressure 130 mm[Hg] Randolph [place] HEAD RIGGER.LAWN SPRINKLER INSTALLER Work Phone: [facility] 03-16-2022 10:57-0400 Body temperature 98.01 [degF] Linh Aly HEAD RIGGER.LAWN SPRINKLER INSTALLER Work Phone: [facility] 03-16-2022 10:57-0400 Body weight 69.85 kg Linh Aly HEAD RIGGER.[employer]WN SPRINKLER INSTALLER Work Phone: [facility] 03-16-2022 10:57-0400 Diastolic blood pressure 83 mm[Hg] Linh Aly HEAD RIGGER.[employer]WN [employer]INKLER INSTALLER Work Phone: [facility] 03-16-2022 10:57-0400 Heart rate 85 /min Linh Aly HEAD RIGGER.[employer]WN SPRINKLER INSTALLER Work Phone: [facility] 03-16-2022 10:57-0400 Respiratory rate 18 /min Linh Aly HEAD RIGGER.[employer]WN SPRINKLER INSTALLER Work Phone: [facility] 03-16-2022 10:57-0400 SaO2% (BldA) [Mass fraction] 97 % Linh Aly HEAD RIGGER.[employer]WN SPRINKLER INSTALLER Work Phone: [facility] 03-16-2022 10:57-0400 Systolic blood pressure 133 mm[Hg] Linh Aly HEAD RIGGER.[employer]WN SPRINKLER INSTALLER Work Phone: [facility] 12-14-2021 09:10-0400 Body height 162.56 cm COMMUNITY DEVELOPMENT DIRECTORMagdi Mar COMMUNITY DEVELOPMENT DIRECTOR Work Phone: [facility] Work Phone: 12-14-2021 09:10-0400 Body mass index (BMI) [Ratio] 26.9 kg/m2 JENNIFER Mar COMMUNITY DEVELOPMENT DIRECTOR Work Phone: [facility] Work Phone: 10-18-2021 12:01-0400 Body temperature 97.9 [degF] Nisha Slabaugh PA-C Work Phone: [facility] 10-18-2021 12:01-0400 Body weight 68.22 kg Nisha Slabaugh PA-C Work Phone: [facility] 10-18-2021 12:01-0400 Diastolic blood pressure 96 mm[Hg] Nisha Slabaugh PA-C Work Phone: [facility] 10-18-2021 12:01-0400 Heart rate 81 /min Nisha Slabaugh PA-C Work Phone: [facility] 10-18-2021 12:01-0400 Respiratory rate 12 /min Nisha Slabaugh PA-C Work Phone: [facility] 10-18-2021 12:01-0400 SaO2% (BldA) [Mass fraction] 97 % Nisha Slabaugh PA-C Work Phone: [facility] 10-18-2021 12:01-0400 Systolic blood pressure 153 mm[Hg] Nisha Slabaugh PA-C Work Phone: [facility] 10-17-2021 18:57-0400 Body mass index (BMI) [Ratio] 27.4 kg/m2 COMMUNITY DEVELOPMENT DIRECTOR-C Lizette Mar COMMUNITY DEVELOPMENT DIRECTOR Work Phone: [facility] Work Phone: 10-17-2021 18:57-0400 Body temperature 97.7 [degF] COMMUNITY DEVELOPMENT DIRECTOR-C Lizette Mar COMMUNITY DEVELOPMENT DIRECTOR Work Phone: [facility] Work Phone: 10-17-2021 18:57-0400 Body weight 72.57 kg COMMUNITY DEVELOPMENT DIRECTOR-Paul Mar COMMUNITY DEVELOPMENT DIRECTOR Work Phone: [facility] Work Phone: 10-17-2021 18:57-0400 Diastolic blood pressure 102 mm[Hg] COMMUNITY DEVELOPMENT DIRECTOR-C Lizette Mar COMMUNITY DEVELOPMENT DIRECTOR Work Phone: [facility] Work Phone: 10-17-2021 18:57-0400 Heart rate 90 /min COMMUNITY DEVELOPMENT DIRECTOR-C Lizette Mar COMMUNITY DEVELOPMENT DIRECTOR Work Phone: [facility] Work Phone: 10-17-2021 18:57-0400 Respiratory rate 16 /min COMMUNITY DEVELOPMENT DIRECTOR-C Lizette Mar COMMUNITY DEVELOPMENT DIRECTOR Work Phone: [facility] Work Phone: 10-17-2021 18:57-0400 SaO2% (BldA) [Mass fraction] 95 % COMMUNITY DEVELOPMENT DIRECTOR-C Lizette Mar COMMUNITY DEVELOPMENT DIRECTOR Work Phone: [facility] Work Phone: 10-17-2021 18:57-0400 Systolic blood pressure 139 mm[Hg] COMMUNITY DEVELOPMENT DIRECTOR-C Lizette Mar COMMUNITY DEVELOPMENT DIRECTOR Work Phone: [facility] Work Phone: 02-13-2017 13:15-0400 Heart rate 94 /min [facility] Work Phone: 02-13-2017 12:31-0400 BMI (Body Mass Index) 31.95 kg/m2 [facility] Work Phone: 02-13-2017 12:31-0400 BP Diastolic 84 mm[Hg] [facility] Work Phone: 02-13-2017 12:31-0400 BP Systolic 118 mm[Hg] [facility] Work Phone: 02-13-2017 12:31-0400 Height 160.02 cm [facility] Work Phone: 02-13-2017 12:31-0400 Pulse (Heart Rate) 94 /min [facility] Work Phone: 02-13-2017 12:31-0400 Respiratory Rate 20 /min [facility] Work Phone: 02-13-2017 12:31-0400 Weight 81.82 kg [facility] Work Phone: 01-30-2017 05:12-0400 Body surface area Derived from formula 68.21 mL/min Angela Sherwood RN [facility] Work Phone: 01-19-2017 14:15-0400 Heart rate 91 /min Jeniffer Almanza RN [facility] Work Phone: 01-19-2017 12:03-0400 BMI (Body Mass Index) 32.2 kg/m2 [facility] Work Phone: 01-19-2017 12:03-0400 BP Diastolic 74 mm[Hg] Claudia Muñoz [facility] Work Phone: 01-19-2017 12:03-0400 BP Systolic 110 mm[Hg] Claudia Muñoz [facility] Work Phone: 01-19-2017 12:03-0400 Height 160.02 cm [facility] Work Phone: 01-19-2017 12:03-0400 Pulse (Heart Rate) 91 /min Claudia Muñoz [facility] Work Phone: 01-19-2017 12:03-0400 Respiratory Rate 18 /min Claudia Toni [facility] Work Phone: 01-19-2017 12:03-0400 Weight 82.46 kg Claudia Muñoz [facility] Work Phone: 10-04-2016 15:29-0400 BMI (Body Mass Index) 32.45 kg/m2 [facility] Work Phone: 10-04-2016 15:29-0400 BP Diastolic 60 mm[Hg] Sam Massey MD [facility] Work Phone: 10-04-2016 15:29-0400 BP Systolic 104 mm[Hg] Sam Massey MD [facility] Work Phone: 10-04-2016 15:29-0400 Height 160.02 cm Sam Massey MD [facility] Work Phone: 10-04-2016 15:29-0400 Pulse (Heart Rate) 80 /min Sam Massey MD [facility] Work Phone: 10-04-2016 15:29-0400 Respiratory Rate 20 /min Sam Massey MD [facility] Work Phone: 10-04-2016 15:29-0400 Weight 83.1 kg Sam Massey MD [facility] Work Phone: Encounters Encounter Date Encounter Type Care Provider Facility Start: 04-08-2025 End: 04-08-2025 ambulatory Sonal CARROLL Facility:[facility] Start: 08-23-2024 End: 08-23-2024 Follow-up encounter Nisha [facility] PA-C Work Phone: [facility] Start: 08-22-2024 End: 08-22-2024 ambulatory SELF Facility:[facility] Start: 08-22-2024 End: 08-22-2024 Patient encounter procedure Emily Carias APRN.LAWN SPRINKLER INSTALLER Work Phone: [facility] Comment on above: Acute upper respirat ory infection (Primary Dx); Acute pharyngitis, unspecified etiology Start: 04-09-2024 End: 04-09-2024 ambulatory No Primary Care Physician Facility:[facility] Start: 04-09-2024 End: 04-09-2024 ambulatory Sonal CARROLL Facility:[facility] Start: 08-21-2023 End: 08-21-2023 Emergency department patient visit JOSEMILTON TANNER [facility] Start: 08-21-2023 End: 08-21-2023 Emergency department patient visit Jose Tanner MD Work Phone: [facility] Comment on above: Acute right-sided lo w back pain without sciatica (Primary Dx) Start: 04-17-2023 End: 04-17-2023 Patient encounter procedure Dayanna Gamez APRN.LAWN SPRINKLER INSTALLER Work Phone: [facility] Comment on above: Viral URI with cough (Primary Dx) Start: 01-29-2023 End: 01-29-2023 Patient encounter procedure Linh Aly APRN.LAWN SPRINKLER INSTALLER Work Phone: [facility] Comment on above: TMJ click (Primary D x); Acute otalgia, bilateral Start: 08-12-2022 Telephone encounter Nisha tompkins PA-C Work Phone: [facility] Comment on above: Results Start: 05-01-2022 End: 05-01-2022 Office outpatient visit 15 minutes Randolph Wright APRN.LAWN SPRINKLER INSTALLER Work Phone: [facility] Comment on above: Acute viral syndrome (Primary Dx); Otalgia of right ear; Viral syndrome Start: 03-17-2022 Telephone encounter Linh PALMERLAWN SPRINKLER INSTALLER Work Phone: [facility] Comment on above: Results Start: 03-16-2022 End: 03-16-2022 Patient encounter procedure Linh Aly APRN.LAWN SPRINKLER INSTALLER Work Phone: [facility] Comment on above: Viral URI with cough (Primary Dx); Otalgia of right ear Start: 01-17-2022 Non-patient / Non-visit COMMUNITY DEVELOPMENT DIRECTOR-C Obie Mar COMMUNITY DEVELOPMENT DIRECTOR Work Phone: [facility] Start: 01-17-2022 End: 01-17-2022 Patient encounter procedure COMMUNITY DEVELOPMENT DIRECTOR-Paul Mar COMMUNITY DEVELOPMENT DIRECTOR Work Phone: [facility] Start: 12-14-2021 End: 12-14-2021 Patient encounter procedure COMMUNITY DEVELOPMENT DIRECTOR-Paul Mar COMMUNITY DEVELOPMENT DIRECTOR Work Phone: [facility] Start: 10-18-2021 Telephone encounter Nisha tompkins PA-C Work Phone: [facility] Comment on above: Results Start: 10-18-2021 End: 10-18-2021 Subsequent hospital visit by physician Xr [facility] Comment on above: Viral URI with cough [J06.9] Start: 10-18-2021 End: 10-18-2021 Patient encounter procedure Nisha [facility] PA-C Work Phone: [facility] Comment on above: Viral URI with cough (Primary Dx); Acute otitis externa of right ear, unspecified type Start: 10-17-2021 End: 10-17-2021 Emergency department patient visit COMMUNITY DEVELOPMENT DIRECTOR-Paul Mar NP Work Phone: [facility]Emergency Department Procedures Date Procedure Procedure Detail Performing Clinician Start: 10-18-2021 Radiologic exam chest 2 views Nisha [facility] PA-C Work Phone: Start: 02-13-2017 End: 02-13-2017 Ecg routine ecg w/least 12 lds w/i&r Sam Massey MD Start: 02-13-2017 End: 02-15-2017 Follow Up Appt 3 months Juan Ramon Patton Start: 02-13-2017 End: 02-15-2017 [facility] Sam Massey MD Start: 02-13-2017 End: 02-13-2017 Electrocardiogram, complete Sam Geller i, MD Start: 01-29-2017 History of placement of stent for coronary artery disease History of coronary artery stent placement COMMUNITY DEVELOPMENT DIRECTOR-Paul Mar COMMUNITY DEVELOPMENT DIRECTOR Work Phone: Start: 01-29-2017 Placement of stent in coronary artery Status post cardiac stent placement Jeniffer Almanza RN Start: 01-29-2017 Placement of stent in coronary artery Status post cardiac stent placement Angela Sherwood RN Start: 01-19-2017 End: 01-19-2017 *BMP Sam Massey MD Start: 01-19-2017 End: 01-19-2017 CBC W Auto Differential panel - Blood Sam Massey MD Start: 01-19-2017 End: 01-29-2017 Chest x-ray Sam Massey MD Start: 01-19-2017 End: 01-29-2017 Ecg routine ecg w/least 12 lds w/i&r Sam Massey MD Start: 01-19-2017 End: 01-19-2017 *BMP Sam Massey MD Start: 01-19-2017 End: 01-19-2017 CBC W Auto Differential panel - Blood Sam Massey MD Start: 01-19-2017 End: 01-29-2017 Chest x-ray Sam Massey MD Start: 01-19-2017 End: 01-29-2017 Electrocardiogram, complete Sam Geller i, MD Start: 01-19-2017 End: 01-29-2017 Left Heart Cath Sam Massey MD Start: 10-04-2016 End: 01-19-2017 Chest x-ray Sam Massey MD Start: 10-04-2016 End: 01-19-2017 Ecg routine ecg w/least 12 lds w/i&r Sam Massey MD Start: 10-04-2016 End: 01-11-2017 Echocardiography Sam Massey MD Start: 10-04-2016 End: 01-11-2017 Echocardiography Sam Massey MD Start: 10-04-2016 End: 01-19-2017 Electrocardiogram, complete Sam Geller i, MD Start: 10-04-2016 End: 01-19-2017 Follow Up Appt Other Sam Massey MD Start: 10-04-2016 End: 01-19-2017 Stress Echocardiogram (treadmill) Sam Massey MD Start: 07-14-2010 Alonso [facility] PA-C Work Phone: Plan of Treatment Date Care Activity Detail Author Start: 2037 RSV Vaccine (1 - 1-d ose 75+ series) RSV Vaccine (1 - 1-dose 75+ series) [facility] Start: 02-03-2024 Covid-19 Vaccine ( season) Covid-19 Vaccine ( season) [facility] Start: 02-03-2024 Influenza vaccination Influenza Vacc ine (#1) [facility] Start: 02-02-2023 COVID-19 Vaccine ( season) COVID-19 Vaccine ( season) [facility] Start: 02-02-2023 Influenza vaccination [facility] Start: 2022 Hepatitis B Vaccines (1 of 3 - Risk 3-dose series) Hepatitis B Vaccines (1 of 3 - Risk 3-dose series) [facility] Start: 2022 RSV Immunization age d 60 or older (1 - 1-dose 60+ series) RSV Immunization aged 60 or older (1 - 1-dose 60+ series) [facility] Start: 2022 RSV Vaccine (1 - 1-d ose 60+ series) RSV Vaccine (1 - 1-dose 60+ series) [facility] Start: 06-04-2022 DEPRESSION ASSESSMENT DEPRESSION ASS [facility] Start: 02-02-2022 Influenza vaccination [facility] Start: 10-17-2021 [facility] Work Phone: Start: 06-04-2021 DEPRESSION ASSESSMENT DEPRESSION ASS [facility] Start: 09-25-2019 DIABETES SCREEN DIABETES SCREEN [facility] Start: 09-25-2019 Diabetes Screening Diabetes Screenin g [facility] Start: 05-16-2017 End: 05-16-2017 Appointment Appointment [facility] Work Phone: Start: 02-13-2017 End: 02-15-2017 Cardiac Rehab Cardiac Rehab Re[facility], [address] [place], [address] [facility] Work Phone: Start: 02-13-2017 End: 02-15-2017 Follow Up Appt 3 months Follow Up Appt 3 months [facility] Work Phone: Start: 02-13-2017 End: 02-15-2017 [facility] Work Phone: Start: 02-13-2017 End: 02-13-2017 Appointment Appointment [facility] Work Phone: Start: 02-13-2017 End: 02-13-2017 Cardiac Rehab Cardiac Rehab [facility] Work Phone: Start: 02-13-2017 End: 02-13-2017 Follow Up Appt 3 months Follow Up Appt 3 months [facility] Work Phone: Start: 02-13-2017 End: 02-13-2017 [facility] [place] [facility] Work Phone: Start: 02-07-2017 End: 02-07-2017 Appointment Appointment [facility] Work Phone: Start: 01-30-2017 End: 01-30-2017 Appointment Appointment [facility] Work Phone: Start: 01-29-2017 End: 01-30-2017 Cardiac Rehab Cardiac Re[facility], [address], [place], [address] [facility] Work Phone: Start: 01-19-2017 End: 01-19-2017 *BMP *BMP [facility] Work Phone: Start: 01-19-2017 End: 01-19-2017 Appointment Appointment [facility] Work Phone: Start: 01-19-2017 End: 01-19-2017 CBC W Auto Differential panel - Blood *CBC without Diff [facility] Work Phone: Start: 01-19-2017 End: 01-29-2017 Chest x-ray X-Ray, Chest, PA & Lateral [facility] Work Phone: Start: 01-19-2017 End: 01-29-2017 Ecg routine ecg w/least 12 lds w/i&r EKG (In office) [facility] Work Phone: Start: 01-19-2017 End: 01-22-2017 Left Heart Cath Left Heart Cath [facility] Work Phone: Start: 01-19-2017 End: 01-19-2017 *BMP *BMP [facility] Work Phone: Start: 01-19-2017 End: 01-19-2017 CBC W Auto Differential panel - Blood *CBC without Diff [facility] Work Phone: Start: 01-19-2017 End: 01-29-2017 Chest x-ray X-Ray, Chest, PA & Lateral [facility] Work Phone: Start: 01-19-2017 End: 01-29-2017 Electrocardiogram, complete EKG (In office) [facility] Work Phone: Start: 01-19-2017 End: 01-22-2017 Left Heart Cath Left Heart Cath [facility] Work Phone: Start: 10-04-2016 End: 10-04-2016 Appointment Appointment [facility] Work Phone: Start: 10-04-2016 End: 01-19-2017 Ecg routine ecg w/least 12 lds w/i&r EKG (In office) [facility] Work Phone: Start: 10-04-2016 End: 12-28-2016 Echocardiography Echocardiogram (complete) [facility] Work Phone: Start: 10-04-2016 End: 01-19-2017 Follow Up Appt Other Follow Up Appt Other [facility] Work Phone: Start: 10-04-2016 End: 12-28-2016 Stress Echocardiogram (treadmill) Stress Echocardiogram (treadmill) [facility] Work Phone: Start: 10-04-2016 End: 12-28-2016 Echocardiography Echocardiogram (complete) [facility] Work Phone: Start: 10-04-2016 End: 01-19-2017 Electrocardiogram, complete EKG (In office) [place] [facility] Work Phone: Start: 10-04-2016 End: 01-19-2017 Follow Up Appt Other Follow Up Appt Other [place] [facility] Work Phone: Start: 10-04-2016 End: 12-28-2016 Stress Echocardiogram (treadmill) Stress Echocardiogram (treadmill) [facility] Work Phone: Start: 04-11-2014 Pneumococcal Vaccine : 50+ (2 of 2 - PCV) Pneumococcal Vaccine: 50+ (2 of 2 - PCV) [facility] Start: 2012 SHINGRIX VACCINE (1 of 2) KING GRIX VACCINE (1 of 2) [facility] Start: 2012 Zoster Vaccines (1 of 2) Zoste r Vaccines (1 of 2) [facility] Start: 07-14-2011 Mammography [facility] Start: 07-14-2011 Screening for malign ant neoplasm of breast Mammogram Screening [facility] Start: 2007 COLOGUARD (FIT-DNA) COLOGUARD (FIT-D NA) [facility] Start: 2007 Colonoscopy COLONOSCOPY [facility] Start: 2007 COLORECTAL CANCER SCREENING COLORECTAL CANCER SCREENING [facility] Start: [address] COLONOGRAPHY [facility] Start: 2007 FECAL OCCULT BLOOD FECAL OCCULT BLOO D [facility] Start: 2007 Lipid 1996 panel - S lyn or Plasma Lipid Screening [facility] Start: 2007 Lipid panel Lipid Screening [facility] Start: 2007 LIPID SCREEN LIPID SCREEN [facility] Start: 2007 Screening for malign ant neoplasm of colon [facility] Start: 2007 SIGMOIDOSCOPY SIGMOIDOSCOPY [facility] Start: 2002 Screening for malign ant neoplasm of breast Mammogram [facility] Start: 1992 HPV TESTING HPV TESTING [facility] Start: 1992 Screening for malign ant neoplasm of cervix [facility] Start: 1983 PAP TESTING PAP TESTING [facility] Start: 1983 Screening for malign ant neoplasm of cervix [facility] Start: 1981 DTaP/Tdap/Td Vaccine s (1 - Tdap) DTaP/Tdap/Td Vaccines (1 - Tdap) [facility] Start: 1981 Hepatitis A Vaccines (1 of 2 - Risk 2-dose series) Hepatitis A Vaccines (1 of 2 - Risk 2-dose series) [facility] Start: 1981 Urine microalbumin profile [facility] Start: 1980 Anxiety Screening Anxiety Screening [facility] Start: 1980 Depression Screening Depression Scre ening [facility] Start: 1980 HEPATITIS C SCREENING HEPATITIS C [facility] Start: 1980 Hepatitis C screening Hepatitis C [facility] Start: 1980 HIV SCREENING HIV SCREENING [facility] Start: 1980 HIV screening HIV Screening [facility] Start: 1974 Adult depression scr eening assessment DEPRESSION SCREENING [facility] Start: 1972 Diabetic foot examination Diabetes: Foot Exam [facility] Start: 1972 Glaucoma screening Diabetes: R etinopathy Screening [facility] Start: 1972 Preventive dental service Diabetes: Dental Exam [facility] Start: 1967 COVID-19 VACCINE (#1) COVID-19 VACCI NE (#1) [facility] Start: 1963 MMR Vaccines (1 of 1 - Standard series) MMR Vaccines (1 of 1 - Standard series) [facility] Start: 1962 COVID-19 VACCINE (#1) COVID-19 VACCI NE (#1) [facility] Start: 1962 Hemoglobin A1c measurement Nicole betes: Hemoglobin A1C [facility] Start: 1962 HIV screening HIV Screening [facility] Start: 1962 Lipid panel Lipid Panel [facility] Start: 1962 Screening for malign ant neoplasm of colon [facility] COVID & INFLUENZA A/ B & RSV PCR, ROUTINE COVID & INFLUENZA A/B & RSV PCR, ROUTINE Microbiology Routine Acute upper respiratory infection Ordered: 08/22/2024 [facility] Work Phone: Comment on above: Ordered: 08/22/2024 Influenza virus A an d B RNA and SARS-CoV-2 (COVID-19) N gene panel - Respiratory specimen by CIRO with probe detection COVID WITH FLUA+B, ROUTINE Microbiology Today Viral URI with cough Ordered: 10/18/2021 [facility] Work Phone: Comment on above: Ordered: 10/18/2021 Influenza virus A an d B RNA and SARS-CoV-2 (COVID-19) N gene panel - Respiratory specimen by CIRO with probe detection COVID WITH FLUA+B, ROUTINE Microbiology Routine Viral URI with cough Ordered: 03/16/2022 [facility] Work Phone: Comment on above: Ordered: 03/16/2022 Influenza virus A an d B RNA and SARS-CoV-2 (COVID-19) N gene panel - Respiratory specimen by CIRO with probe detection COVID WITH FLUA+B, ROUTINE Microbiology Routine Viral syndrome 05/01/2022 10:01 AM EST [facility] Work Phone: [facility] Immunizations Immunization Date Immunization Notes Care Provider Fa [facility] 07-04-2019 influenza virus vaccine, unspecified formulation Dayanna Gamez APRN.LAWN SPRINKLER INSTALLER Work Phone: [facility] 04-03-2016 Influenza virus vaccine COMMUNITY DEVELOPMENT DIRECTOR-C Lizette Mar COMMUNITY DEVELOPMENT DIRECTOR Work Phone: [facility] Work Phone: 04-03-2016 influenza virus vaccine, unspecified formulation Jose Tanner MD Work Phone: [facility] Payers Date Payer Category Payer Self-pay [id number] 2022 [facility] [facility] BLUE CARD PPO OOS [id number] 2014 Unknown [employer] BLUE CARD PPO OOS [id number] 2014-Present [phone] [id number] [place] [address] PPO [id number] 2014 Unknown [id number] 2014 Unknown [id number] Unknown [id number] Unknown [id number] Unknown [id number] Unknown [id number] Social History Date Type Detail Facility Start: 04-06-2011 End: 08-21-2023 Tobacco smoking status NHIS Never smoked tobacco [facility] Start: 04-06-2011 End: 08-21-2023 Tobacco use and exposure Smokeless tobacco non-user [facility] Start: 10-18-2021 End: 04-17-2023 Alcohol intake Current non-drinker of alcohol (finding) [facility] Start: 1960 Sex Assigned At Not on file [facility] Start: 10-08-2021 End: 05-01-2022 Exposure to SARS-CoV-2 (event) Not sure [facility] Start: 12-14-2021 Tobacco smoking stat us NCIS Unknown if ever smoked [facility] Work Phone: Start: 1960 Sex Assigned At Female W [facility] Work Phone: Start: 08-11-2022 End: 08-09-2023 History of Social function [facility] Start: 08-11-2022 End: 08-09-2023 Tobacco use panel [facility] National Score (1-100), lower number is lower risk Not on file [facility] Clinical Notes 10-18-2021 to 08-23-2024 Telephone Encounter - Nisha [facility] PA-C - 08/23/2024 7:41 AM EDTTelephone Encounter - Nisha [facility] PA-C - 08/23/2024 7:41 AM EDTPatient InstructionsDischarge Instructions Note Date & Type Note Facility 08-23-2024 Telephone encounter Note This provider called and left a message. If the patient/parent calls back, please inform them of her negative nasal swab results, as listed below. Please be aware that your influenza, RSV, and COVID-19 test is negative. Please continue the plan of care as discussed at your clinic visit. Follow up with your primary care physician for any new or persisting fever or worsening or changing symptoms. Please refrain from work/school and isolate yourself until - -At least 24 hours have passed since last fever without the use of fever-reducing medications Nisha [facility] PA-C [facility] Work Phone: 08-23-2024 Miscellaneous Notes This provider called and left a message. If the patient/parent calls back, please inform them of her negative nasal swab results, as listed below. Please be aware that your influenza, RSV, and COVID-19 test is negative. Please continue the plan of care as discussed at your clinic visit. Follow up with your primary care physician for any new or persisting fever or worsening or changing symptoms. Please refrain from work/school and isolate yourself until - -At least 24 hours have passed since last fever without the use of fever-reducing medications Nisha [facility] PA-C documented in this encounter [facility] 08-22-2024 Instructions Emily Carias APRN.[employer] [facility] - 08/22/2024 3:49 PM EDT Home going instructions for Upper Respiratory Infections An Upper Respiratory Infection (URI) is another name for the common cold. A cold is caused by a virus that can settle in yournose, throat or lungs. This causes a runny or stuffy nose and sneezing. You may also have asore throat, cough, headache,fever and muscle aches. Different cold viruses last different lengths of time, but the average time is 2- 14 days. Your body will kill off the virus by itself. Additionally, you can prime your body's immune system. This may help you get better more quickly. Drink lots of fluids - at least one gallon of non-caffeinated liquids per day Make sure you are eating well Get plenty of rest - at least 8 hours of sleep per night for adults and more for children We do not have any medications that kill off these viruses. Antibiotics are used to treat bacterial infections; however, they are not active against viral infections. There are some things that might help you feel better, though. Vaporizers, humidifiers, hot showers, and hot fluids help open respiratory and sinus passages Sudafed is a safe and effective decongestant Kaycee Nasal Dateland may offer relief of nasal and head congestion Brijesh's Vapor Rub placed on a hot towel and draped over the head may relieve congestion Tylenol and Advil help control fevers and headaches Salt water gargles help relieve sore throats Chloraceptic spray or throat lozenges may also help relieve sore throat symptoms Robitussin DM will help loosen up secretions and also provide relief from a cough In General: - Drink lots of fluids - at least one gallon of non-caffeinated liquids per day - Make sure you are eating well - Get plenty of rest - at least 8 hours of sleep per night for adults - ibuprofen 600mg every 8 hours as needed for discomfort - acetaminophen 500mg every 4-6 hours as needed for fever and discomfort. - may alternate ibuprofen and acetaminophen For nasal congestion try: -Vaporizers, Neti Pot, humidifiers, hot showers, and hot fluids help open respiratory and sinus passages. - Kaycee Nasal Dateland may offer relief of nasal and head congestion 2-3 times per day as needed. - Sudafed is a safe and effective decongestant for people who do not have high blood pressure. Do not take Sudafed if you have ever been told that you have high blood pressure or hypertension. General dosing guidelines: Immediate release: 60 mg every 4-6 hours; Extended release: 120 mg every 12 hours or 240 mg every 24 hours; maximum: 240 mg/24 hours. For Sore Throat try: - Salt water gargles every 2-3 hours as needed for discomfort - Chloraceptic spray or throat lozenges (Cepacol) For Cough and chest congestion try one of the following: - Mucinex or Robitussin are expectorants. You may take 200-400 mg every 4 hours to a not to exceed 2,400 mg/day OR Extended release tablet: 600-1200 mg every 12 hours, not to exceed 2,400 mg/day - Delsym is a cough suppressant: Oral: 10-20 mg every 4 hours or 30 mg every 6-8 hours OR Extended release: 60 mg twice daily; maximum: 120 mg/day - If you have high blood pressure or hypertension it is safe to take Coricidin HBP Cough & Cold. If you smoke it is advised that you quit smoking. CONTACT YOUR DOCTOR IF: You have fevers for longer than five days or a fever more than 102 degrees You are still sick after 10 days After several days you are getting worse rather than better 4. You develop nausea, vomiting, diarrhea, or a rash. Go to the ER if you - experience pressure or pain in your chest - experience difficulty swallowing - experience difficulty breathing Follow up with your physician in 5-7 days or before if your symptoms get worse. Thank you for coming to [facility] today. I appreciate your confidence in choosing the [facility] for your medical care. Emily Carias APRN.[facility] [address] [place] [address] [place] [id number] documented in this encounter [facility] 08-22-2024 Note SARS-COV-2 (AGENT OF COVID-19) RNA: Not detected INFLUENZA A RNA: Not detected INFLUENZA B RNA: Not detected RESPIRATORY SYNCYTIAL VIRUS (RSV) RNA: Not detected [facility] Comment on above: Performed By: #### 9 [id number] #### [facility] CLIA [id number] [address] [place] [address] [place] [address] [place] 08-22-2024 Note HNO ID: [id number] Author: EMILY CARIAS APRN.[employer] Service: ? Author Type: Nurse Practitioner Type: Progress Notes Filed: 08/22/2024 15:49 Note Text: [facility] PATIENT NAME: Ana Larkin DATE OF : 1960 TODAYS' DATE: 08/22/2024 Subjective: Ms. Larkin is a 64 year old female Patient presents with: Upper Respiratory Infection: Ear pain, chest feels tight, has been 3-4 days ago History of Present Illness: The history is provided by the patient. No school speech language pathologist was used. Upper Respiratory Infection This is a new problem. The current episode started in the past 7 days (3-4 days ago). The problem occurs constantly. The problem has been unchanged. Associated symptoms include congestion, coughing, headaches and a sore throat. Pertinent negatives include no chills, fever, nausea or vomiting. Associated symptoms comments: + sick contacts at work . She has tried NSAIDs (Zyrtec) for the symptoms. The treatment provided mild relief. Review of Systems: Review of Systems Constitutional: Negative for chills and fever. HENT: Positive for congestion, ear pain, rhinorrhea and sore throat. Negative for sinus pressure. Respiratory: Positive for cough. Gastrointestinal: Negative for diarrhea, nausea and vomiting. Neurological: Positive for headaches. Allergies: Allergies: Ticagrelor Shortness of Breath Atorvastatin Myalgia Comment:Myalgia with 20mg daily Clopidogrel Other: See Comments Erythromycin Hives, Itching Hctz [Thiazides] GI Upset, Other: See Comments Comment:Extreme dizziness Imitrex [Sumatripta* Anaphylaxis Comment:Throat swollen, sob, had to get shot of epi last time. Levaquin [Levofloxa* GI Upset Nitrofurantoin Other: See Comments, GI Upset Comment:Patient reported. Oxycodone Other: See Comments Comment:Makes very hyper Pravastatin Unknown Comment:Leg pain Pseudoephedrine-Gua* GI Upset Comment:Patient reported Vicodin [Hydrocodon* Intolerance Comment:Can't sleep Cephalosporins Unknown Citalopram Other: See Comments, Unknown Comment:Patient reported Estradiol GI Upset Comment:Pt sts dizzy and nausea Hctz [Triamterene-H* GI Upset Sertraline Other: See Comments Comment:[place] dopey Sucralfate GI Upset Comment:Patient reported Triamterene Vomiting Past Medical History: PAST MEDICAL HISTORY Diagnosis Date Fibroids May 2011 Laparoscopic supracervical hysterectomy GERD (gastroesophageal reflux disease) Hypertension Dr. MEJIA Menorrhagia May 2011 Laparoscopic supracervical hysterectomy Migraines Past Surgical History: PAST SURGICAL HISTORY Procedure Laterality Date , LOW, ANTE/POST CARE October 1999 And tubal ligation HYSTERECTOMY HX LAPAROSCOPIC SUPRACERVICAL HYSTERECTOMY May 2011 BSO, cystoscopy. SALPINGECTOMY Family History: No family history on file. Tobacco History: Tobacco Use: Never Medications: Current Outpatient Medications Medication Sig Dispense Refill aspirin 325 mg tablet Take 1 tablet by mouth once daily. 10 tablet 0 Amlodipine-Benazepril (LOTREL) 10-40 mg ORAL per capsule Take 1 capsule by mouth once daily. 30 capsule 4 benzonatate (TESSALON PERLES) 100 mg capsule Take 2 capsules by mouth three times a day as needed. (Patient not taking: Reported on 08/22/2024) 30 capsule 0 fluticasone (FLONASE ALLERGY RELIEF) 50 mcg/actuation nasal spray Use 1 Dateland in each nostril once daily. (Patient not taking: Reported on 08/22/2024) 11.1 mL 0 guaiFENesin (MUCINEX) 600 mg 12 hr tablet Take 1 tablet by mouth twice daily. (Patient not taking: Reported on 08/22/2024) 30 tablet 0 No current facility-administered medications for this visit. Vitals: BP 135/84 Pulse 93 Temp 37.1 ?C (98.7 ?F) Resp 16 Wt 68.6 kg (151 lb 5.5 oz) LMP 04/05/2011 SpO2 96% BMI 27.68 kg/m? Physical Exam: Physical Exam Vitals and nursing note reviewed. Constitutional: General: She is not in acute distress. HENT: Head: Normocephalic. Right Ear: Ear canal and external ear normal. A middle ear effusion is present. Left Ear: Tympanic membrane, ear canal and external ear normal. Nose: Mucosal edema present. Mouth/Throat: Mouth: Mucous membranes are moist. Pharynx: Uvula midline. Posterior oropharyngeal erythema (slight) present. Cardiovascular: Rate and Rhythm: Normal rate and regular rhythm. Pulmonary: Effort: Pulmonary effort is normal. Breath sounds: Normal breath sounds. Neurological: Mental Status: She is alert. Psychiatric: Behavior: Behavior is cooperative. Labs: COVID/FLU/RSV-pending Procedures ASSESSMENT/PLAN: 1. Acute upper respiratory infection - ICD9: 465.9, ICD10: J06.9 (primary diagnosis) - Discussed viral etiology and rationale for treatment. - Symptomatic treatment with prn analgesia - Supportive care with fluids and rest - COVID AND INFLUENZA A/B AND RSV PCR, ROUTINE 2. Acute pharyngitis, unspecified etiology - I (more content not included)... [facility] 08-22-2024 History of Presen t illness Narrative Images from the original note were not included. [facility] PATIENT NAME: Ana Larkin DATE OF : 1960 TODAYS' DATE: 08/22/2024 Subjective: Ms. Larkin is a 64 year old female Patient presents with: Upper Respiratory Infection: Ear pain, chest feels tight, has been 3-4 days ago History of Present Illness: The history is provided by the patient. No school speech language pathologist was used. Upper Respiratory Infection This is a new problem. The current episode started in the past 7 days (3-4 days ago). The problem occurs constantly. The problem has been unchanged. Associated symptoms include congestion, coughing, headaches and a sore throat. Pertinent negatives include no chills, fever, nausea or vomiting. Associated symptoms comments: + sick contacts at work . She has tried NSAIDs (Zyrtec) for the symptoms. The treatment provided mild relief. Review of Systems: Review of Systems Constitutional: Negative for chills and fever. HENT: Positive for congestion, ear pain, rhinorrhea and sore throat. Negative for sinus pressure. Respiratory: Positive for cough. Gastrointestinal: Negative for diarrhea, nausea and vomiting. Neurological: Positive for headaches. Allergies: Allergies: Ticagrelor Shortness of Breath Atorvastatin Myalgia Comment:Myalgia with 20mg daily Clopidogrel Other: See Comments Erythromycin Hives, Itching Hctz [Thiazides] GI Upset, Other: See Comments Comment:Extreme dizziness Imitrex [Sumatripta* Anaphylaxis Comment:Throat swollen, sob, had to get shot of epi last time. Levaquin [Levofloxa* GI Upset Nitrofurantoin Other: See Comments, GI Upset Comment:Patient reported. Oxycodone Other: See Comments Comment:Makes very hyper Pravastatin Unknown Comment:Leg pain Pseudoephedrine-Gua* GI Upset Comment:Patient reported Vicodin [Hydrocodon* Intolerance Comment:Can't sleep Cephalosporins Unknown Citalopram Other: See Comments, Unknown Comment:Patient reported Estradiol GI Upset Comment:Pt sts dizzy and nausea Hctz [Triamterene-H* GI Upset Sertraline Other: See Comments Comment:[place] dopey Sucralfate GI Upset Comment:Patient reported Triamterene Vomiting Past Medical History: PAST MEDICAL HISTORY Diagnosis Date Fibroids May 2011 Laparoscopic supracervical hysterectomy GERD (gastroesophageal reflux disease) Hypertension Dr. MEJIA Menorrhagia May 2011 Laparoscopic supracervical hysterectomy Migraines Past Surgical History: PAST SURGICAL HISTORY Procedure Laterality Date , LOW, ANTE/POST CARE October 1999 And tubal ligation HYSTERECTOMY HX LAPAROSCOPIC SUPRACERVICAL HYSTERECTOMY May 2011 BSO, cystoscopy. SALPINGECTOMY Family History: No family history on file. Tobacco History: Tobacco Use: Never Medications: Current Outpatient Medications Medication Sig Dispense Refill aspirin 325 mg tablet Take 1 tablet by mouth once daily. 10 tablet 0 Amlodipine-Benazepril (LOTREL) 10-40 mg ORAL per capsule Take 1 capsule by mouth once daily. 30 capsule 4 benzonatate (TESSALON PERLES) 100 mg capsule Take 2 capsules by mouth three times a day as needed. (Patient not taking: Reported on 08/22/2024) 30 capsule 0 fluticasone (FLONASE ALLERGY RELIEF) 50 mcg/actuation nasal spray Use 1 [place] in each nostril once daily. (Patient not taking: Reported on 08/22/2024) 11.1 mL 0 guaiFENesin (MUCINEX) 600 mg 12 hr tablet Take 1 tablet by mouth twice daily. (Patient not taking: Reported on 08/22/2024) 30 tablet 0 No current facility-administered medications for this visit. Vitals: BP 135/84 Pulse 93 Temp 37.1 C (98.7 F) Resp 16 Wt 68.6 kg (151 lb 5.5 oz) LMP 04/05/2011 SpO2 96% BMI 27.68 kg/m Physical Exam: Physical Exam Vitals and nursing note reviewed. Constitutional: General: She is not in acute distress. HENT: Head: Normocephalic. Right Ear: Ear canal and external ear normal. A middle ear effusion is present. Left Ear: Tympanic membrane, ear canal and external ear normal. Nose: Mucosal edema present. Mouth/Throat: Mouth: Mucous membranes are moist. Pharynx: Uvula midline. Posterior oropharyngeal erythema (slight) present. Cardiovascular: Rate and Rhythm: Normal rate and regular rhythm. Pulmonary: Effort: Pulmonary effort is normal. Breath sounds: Normal breath sounds. Neurological: Mental Status: She is alert. Psychiatric: Behavior: Behavior is cooperative. Labs: COVID/FLU/RSV-pending Procedures ASSESSMENT/PLAN: 1. Acute upper respiratory infection - ICD9: 465.9, ICD10: J06.9 (primary diagnosis) - Discussed viral etiology and rationale for treatment. - Symptomatic treatment with prn analgesia - Supportive care with fluids and rest - COVID & INFLUENZA A/B & RSV PCR, ROUTINE 2. Acute pharyngitis, unspecified etiology - ICD9: 462, ICD10: J02.9 - suspect viral - Discussed supportive care treatment with fluids, rest and analgesia. - LIDOCAINE HCL 2 % MUCOSAL SOLUTION - See patient instructions for further recommendations. - Pt education along with discharge instructions given to pt - Discussed Red Flag signs and when to go to ER. - Pt agreeable with plan and verbalizes understanding. - Follow up with PCP if symptoms worsen or do not improve in the next 2-3 days. Emily Carias APRN.CNP 08/22/24 3:28 PM Differential Diagnoses - Acute Upper Respiratory is more likely for the following reason(s): suggested by H&P and consistent with laboratory studies Disposition The patient was discharged. OTC Medications were advised: Tylenol or Ibuprofen Medical Decision Making: Problems: Minimal: Self-limited or minor problem Data: Unique test result(s) reviewed: 1 Unique test(s) ordered: 1 Risk: Low: Low risk from testing/treatment Moderate: Drug management Medical Decision Making Level: 3 - Low documented in this encounter [facility] 08-21-2023 Hospital Discharg e instructions Jose Tanner MD - 08/21/2023 12:44 PM EDT You were seen in the ED today for back pain. You should take Tylenol (1000 mg every 8 hours) as needed for pain and Motrin (600 mg every 8 hours) as needed for pain. You can also use lidocaine patches as needed. The 4% version is available over the counter. You should follow up with your primary care doctor for further evaluation and treatment of the pain. You should return to the ED if: -You have worsening back pain that don't get better with medications -You begin to have weakness or numbness in your legs or feet -You feel that you cannot walk -You urinate without trying to -You have any other symptom that concerns you Please sign up for MyChart and review all results from your visit today. Please follow up with your primary care provider with any questions or concerns about your results today. Thank you for choosing [facility] for your care. Sincerely, Jose Tanner MD documented in this encounter [facility] 08-21-2023 Emergency department Note Images from the original note were not included. [facility] ED EMERGENCY DEPARTMENT ENCOUNTER Pt Name: Ana Larkin Birthdate 1960 Date of evaluation: 08/21/2023 Provider: Jose Tanner MD CHIEF COMPLAINT Chief Complaint Patient presents with Hip Pain HISTORY OF PRESENT ILLNESS I wore proper PPE for the entirety of this encounter. Ana Larkin is a 63 y.o. female who presents to the emergency department with atraumatic right hip pain that is acute on chronic and worse today. No recent falls or injuries or unusual activity. No weakness in the right lower extremity. Pt denies weakness or numbness, fever, night sweats, saddle anesthesia, incontinence, weight loss, history of cancer, history of IV drug use. She has not yet taken anything for pain. Nursing Notes were reviewed. REVIEW OF SYSTEMS Constitutional: as noted in HPI, and negative for fever/chills Eyes: as noted in HPI, and negative for vision changes ENT: as noted in HPI, and negative for cough CV: as noted in HPI, and negative for chest pain, negative for palpitations Resp: as noted in HPI, and negative for shortness of breath GI: as noted in HPI, and negative for abd pain, negative for n/v/d : as noted in HPI, and negative for urinary symptoms MSK: as noted in HPI Skin: as noted in HPI, and negative for rash Neuro: as noted in HPI, and negative for headaches, negative for acute focal weakness/numbness PAST MEDICAL HISTORY History reviewed. No pertinent past medical history. SURGICAL HISTORY History reviewed. No pertinent surgical history. CURRENT MEDICATIONS Previous Medications No medications on file ALLERGIES E.e.s. [erythromycin], Hydrocodone, and Percocet [oxycodone-acetaminophen] FAMILY HISTORY No family history on file. SOCIAL HISTORY Social History Socioeconomic History Marital status: Single Tobacco Use Smoking status: Never Smokeless tobacco: Never Substance and Sexual Activity Drug use: Never SCREENINGS PHYSICAL EXAM ED Triage Vitals [08/21/23 1235] Temp Heart Rate Resp BP 36.3 C (97.3 F) 107 18 (!) 171/102 SpO2 Temp Source Heart Rate Source Patient Position 97 % Oral -- Lying BP Location FiO2 (%) Right arm -- Constitutional: No acute distress HEENT:Head: Atraumatic/normocephalic Eyes: Conjunctivae normal. ENT: Mucous membranes moist. Neck: Normal ROM, supple CV: RRR RESP: CTAB, good respiratory effort, no increased wob GI: Abdomen soft, non-tender, non-distended, +BS, no guarding or rebound tenderness MSK: Normal bulk and tone, no gross deformity BACK: No CVA tenderness. No C/T/L-spine tenderness. Mild tenderness of the low L-spine just above the right iliac crest EXTR: Warm and well perfused, no edema SKIN: No rash/bruising/erythema PSYCH: Appropriate affect, cooperative behavior NEURO: Alert and oriented x 3, face symmetric, no slurred speech L1-L2 Inner thigh sensation intact L2 Adduct Thigh (cross legs) 5/5 L3 Extend Knee 5/5 bilaterally L4 Dorsiflex Ankle (Up) 5/5 bilaterally L5 Point Great Toe Up 5/5 bilaterally L2 L3-L4 Knee Reflex intaxt S1 Flex Knee 5/5 bilaterally S2 Plantarflex Toes 5/5 bilaterally S3, 4, 5 Groin, Perianal Sensation intact DIAGNOSTIC RESULTS Interpretation per the Radiologist below, if available at the time of this note: No orders to display LABS: Labs Reviewed - No data to display EMERGENCY DEPARTMENT COURSE and DIFFERENTIAL DIAGNOSIS/MDM: Vitals: Vitals: 08/21/23 1235 BP: (!) 171/102 BP Location: Right arm Patient Position: Lying Pulse: 107 Resp: 18 Temp: 36.3 C (97.3 F) TempSrc: Oral SpO2: 97% Weight: 68.9 kg (152 lb) Medications Lidocaine 4 % patch 1 patch (1 patch TransDERmal Medication Applied 08/21/23 1247) acetaminophen (Tylenol) tablet 1,000 mg (1,000 mg Oral Given 08/21/23 1247) ketorolac (Toradol) injection 15 mg (15 mg IntraMUSCular Given 08/21/23 124) I personally saw the patient and performed a substantive portion of the visit including all aspects of the medical decision making. Patient appears nontoxic. Mildly hypertensive and tachycardic likely secondary to pain. I ordered Toradol 15 mg IM, Tylenol 1 g p.o. and lidocaine patch for pain. Patient subsequent felt moderately improved. Ambulatory in the ED. I completed a structured, evidence-based clinical evaluation to screen for acute non-traumatic spinal emergencies. The patient has a normal detailed neurologic exam and a low red flag score (as outlined by [facility]' low back pain CMT). The evidence indicates that the patient is very low risk for an acute spinal emergency and this is consistent with my clinical intuition. The risk of further workup is higher than the likelihood of the patient having a spinal epidural abscess or other dangerous emergency spinal condition. It is, therefore, in the patient s best interest not to do additional emergent testing at this time. Differential diagnoses includes lumbago versus musculoskeletal spasm / strain versus sciatica. No back pain red flags on history or physical. Presentation not consistent with malignancy (lack of history of malignancy, lack of B symptoms), fracture (no trauma, no bony tenderness to palpation), cauda equina (no bowel or urinary incontinence/retention, no saddle anesthesia, no distal weakness), AAA, viscus perforation, osteomyelitis or epidural abscess (no IVDU, vertebral tenderness), renal colic, pyelonephritis (afebrile, no CVAT, no urinary symptoms). Given the clinical picture, no indication for imaging at this time. I have discussed with the patient my clinical impression and the result of an evidence-based clinical evaluation to screen for spinal epidural abscess and other spinal emergencies, as well as the risk of further testing and hospitalization. The evidence shows that the risk for an acute spinal emergency is less than 1%. Although the risk of an acute spinal emergency has not been completely eliminated, the risks of further testing likely exceed any potential benefit, and the patient agrees with not pursuing further emergent evaluation for causes of back pain at this time. MEDICAL DECISION MAKING: I considered, but did not perform, additional testing such MRI Spine or Brain, as well as admission or transfer to a higher level of care. I utilized an evidence-based risk rating tool (CMT) along with my training and experience to weigh the risk of discharge against the risks of further testing, imaging, or hospitalization. At this time, I estimate the risks of additional testing, imaging, or hospitalization (in the case of discharge) to be equal to or greater than the risk of discharge. Given the symptoms and findings present at this time, the chance of SEA or SCC is so remote that additional testing or imaging is more likely to harm the patient than diagnose SEA. [id number] SHARED DECISION MAKING: I discussed my risk assessment with the patient. The patient understands and consents to the risk of disposition/plan, as well as the risk of uncertainty in estimating outcomes. [id number] I discussed test results and plan with the patient. Diagnoses as of 08/21/23 1335 Acute right-sided low back pain without sciatica PROCEDURES: Unless otherwise noted below, none Procedures Patients symptoms are consistent with sepsis, severe sepsis, or septic shock (If yes use .sepsiscoremeasure): no FINAL IMPRESSION 1. Acute right-sided low back pain without sciatica DISPOSITION/PLAN Discharge 08/21/2023 12:44:22 PM PATIENT REFERRED TO: [facility] [address] [place] [address] [address] [facility] [id number] Schedule an appointment as soon as possible for a visit DISCHARGE MEDICATIONS: New Prescriptions CYCLOBENZAPRINE (FLEXERIL) 10 MG TABLET Take 1 tablet (10 mg) by mouth 2 times daily as needed for muscle spasms. (Please note: Portions of this note were completed with a voice recognition program. 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 Pt reports that pain is constant pain that is increased with all movement, sitting and positional changes. 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 Pt reports that pain is constant pain that is increased with all movement, sitting and positional changes. Pt reports that she had an episode of similar pain 5 years ago and told she has arthritis in area [facility] 08-21-2023 Physician Emergency department Note Images from the original note were not included. [facility] ED EMERGENCY DEPARTMENT ENCOUNTER Pt Name: Ana Larkin Birthdate 1960 Date of evaluation: 08/21/2023 Provider: Jose Tanner MD CHIEF COMPLAINT Chief Complaint Patient presents with Hip Pain HISTORY OF PRESENT ILLNESS I wore proper PPE for the entirety of this encounter. Ana Larkin is a 63 y.o. female who presents to the emergency department with atraumatic right hip pain that is acute on chronic and worse today. No recent falls or injuries or unusual activity. No weakness in the right lower extremity. Pt denies weakness or numbness, fever, night sweats, saddle anesthesia, incontinence, weight loss, history of cancer, history of IV drug use. She has not yet taken anything for pain. Nursing Notes were reviewed. REVIEW OF SYSTEMS Constitutional: as noted in HPI, and negative for fever/chills Eyes: as noted in HPI, and negative for vision changes ENT: as noted in HPI, and negative for cough CV: as noted in HPI, and negative for chest pain, negative for palpitations Resp: as noted in HPI, and negative for shortness of breath GI: as noted in HPI, and negative for abd pain, negative for n/v/d : as noted in HPI, and negative for urinary symptoms MSK: as noted in HPI Skin: as noted in HPI, and negative for rash Neuro: as noted in HPI, and negative for headaches, negative for acute focal weakness/numbness PAST MEDICAL HISTORY History reviewed. No pertinent past medical history. SURGICAL HISTORY History reviewed. No pertinent surgical history. CURRENT MEDICATIONS Previous Medications No medications on file ALLERGIES E.e.s. [erythromycin], Hydrocodone, and Percocet [oxycodone-acetaminophen] FAMILY HISTORY No family history on file. SOCIAL HISTORY Social History Socioeconomic History Marital status: Single Tobacco Use Smoking status: Never Smokeless tobacco: Never Substance and Sexual Activity Drug use: Never SCREENINGS PHYSICAL EXAM ED Triage Vitals [08/21/23 1235] Temp Heart Rate Resp BP 36.3 C (97.3 F) 107 18 (!) 171/102 SpO2 Temp Source Heart Rate Source Patient Position 97 % Oral -- Lying BP Location FiO2 (%) Right arm -- Constitutional: No acute distress HEENT:Head: Atraumatic/normocephalic Eyes: Conjunctivae normal. ENT: Mucous membranes moist. Neck: Normal ROM, supple CV: RRR RESP: CTAB, good respiratory effort, no increased wob GI: Abdomen soft, non-tender, non-distended, +BS, no guarding or rebound tenderness MSK: Normal bulk and tone, no gross deformity BACK: No CVA tenderness. No C/T/L-spine tenderness. Mild tenderness of the low L-spine just above the right iliac crest EXTR: Warm and well perfused, no edema SKIN: No rash/bruising/erythema PSYCH: Appropriate affect, cooperative behavior NEURO: Alert and oriented x 3, face symmetric, no slurred speech L1-L2 Inner thigh sensation intact L2 Adduct Thigh (cross legs) 5/5 L3 Extend Knee 5/5 bilaterally L4 Dorsiflex Ankle (Up) 5/5 bilaterally L5 Point Great Toe Up 5/5 bilaterally L2 L3-L4 Knee Reflex intaxt S1 Flex Knee 5/5 bilaterally S2 Plantarflex Toes 5/5 bilaterally S3, 4, 5 Groin, Perianal Sensation intact DIAGNOSTIC RESULTS Interpretation per the Radiologist below, if available at the time of this note: No orders to display LABS: Labs Reviewed - No data to display EMERGENCY DEPARTMENT COURSE and DIFFERENTIAL DIAGNOSIS/MDM: Vitals: Vitals: 08/21/23 1235 BP: (!) 171/102 BP Location: Right arm Patient Position: Lying Pulse: 107 Resp: 18 Temp: 36.3 C (97.3 F) TempSrc: Oral SpO2: 97% Weight: 68.9 kg (152 lb) Medications Lidocaine 4 % patch 1 patch (1 patch TransDERmal Medication Applied 08/21/23 1247) acetaminophen (Tylenol) tablet 1,000 mg (1,000 mg Oral Given 08/21/23 1247) ketorolac (Toradol) injection 15 mg (15 mg IntraMUSCular Given 08/21/23 124) I personally saw the patient and performed a substantive portion of the visit including all aspects of the medical decision making. Patient appears nontoxic. Mildly hypertensive and tachycardic likely secondary to pain. I ordered Toradol 15 mg IM, Tylenol 1 g p.o. and lidocaine patch for pain. Patient subsequent felt moderately improved. Ambulatory in the ED. I completed a structured, evidence-based clinical evaluation to screen for acute non-traumatic spinal emergencies. The patient has a normal detailed neurologic exam and a low red flag score (as outlined by [facility]' low back pain CMT). The evidence indicates that the patient is very low risk for an acute spinal emergency and this is consistent with my clinical intuition. The risk of further workup is higher than the likelihood of the patient having a spinal epidural abscess or other dangerous emergency spinal condition. It is, therefore, in the patient s best interest not to do additional emergent testing at this time. Differential diagnoses includes lumbago versus musculoskeletal spasm / strain versus sciatica. No back pain red flags on history or physical. Presentation not consistent with malignancy (lack of history of malignancy, lack of B symptoms), fracture (no trauma, no bony tenderness to palpation), cauda equina (no bowel or urinary incontinence/retention, no saddle anesthesia, no distal weakness), AAA, viscus perforation, osteomyelitis or epidural abscess (no IVDU, vertebral tenderness), renal colic, pyelonephritis (afebrile, no CVAT, no urinary symptoms). Given the clinical picture, no indication for imaging at this time. I have discussed with the patient my clinical impression and the result of an evidence-based clinical evaluation to screen for spinal epidural abscess and other spinal emergencies, as well as the risk of further testing and hospitalization. The evidence shows that the risk for an acute spinal emergency is less than 1%. Although the risk of an acute spinal emergency has not been completely eliminated, the risks of further testing likely exceed any potential benefit, and the patient agrees with not pursuing further emergent evaluation for causes of back pain at this time. MEDICAL DECISION MAKING: I considered, but did not perform, additional testing such MRI Spine or Brain, as well as admission or transfer to a higher level of care. I utilized an evidence-based risk rating tool (CMT) along with my training and experience to weigh the risk of discharge against the risks of further testing, imaging, or hospitalization. At this time, I estimate the risks of additional testing, imaging, or hospitalization (in the case of discharge) to be equal to or greater than the risk of discharge. Given the symptoms and findings present at this time, the chance of SEA or SCC is so remote that additional testing or imaging is more likely to harm the patient than diagnose SEA. [id number] SHARED DECISION MAKING: I discussed my risk assessment with the patient. The patient understands and consents to the risk of disposition/plan, as well as the risk of uncertainty in estimating outcomes. [id number] I discussed test results and plan with the patient. Diagnoses as of 08/21/23 1335 Acute right-sided low back pain without sciatica PROCEDURES: Unless otherwise noted below, none Procedures Patients symptoms are consistent with sepsis, severe sepsis, or septic shock (If yes use .sepsiscoremeasure): no FINAL IMPRESSION 1. Acute right-sided low back pain without sciatica DISPOSITION/PLAN Discharge 08/21/2023 12:44:22 PM PATIENT REFERRED TO: [address] [facility] [address] Schedule an appointment as soon as possible for a visit DISCHARGE MEDICATIONS: New Prescriptions CYCLOBENZAPRINE (FLEXERIL) 10 MG TABLET Take 1 tablet (10 mg) by mouth 2 times daily as needed for muscle spasms. (Please note: Portions of this note were completed with a voice recognition program. Efforts were made to edit the dictations but occasionally words and phrases are mis-transcribed.) Jose Tanner MD [facility] Emergency Medicine Physician [facility] Jose Tanner MD 08/21/23 1335 [facility] 04-17-2023 Instructions Dayanna Gamez APRN.WENCESLAO - 04/17/2023 2:53 PM EST Rest, increase water intake Motrin or Tylenol as needed for fever or pain. Salt water gargles, chloraseptic spray or lozenges as needed for sore throat. Warm beverages, honey. Nasal saline spray as needed Cool mist humidifier at night Flonase 2 sprays in each nostril once a day Zyrtec 10 mg By mouth daily at bedtime Tessalon Perles 2 every 8 hours, do not combine this with robitussin or delsym A cold normally lasts 7-10 days. If your symptoms are lasting longer, develop fever, or worsening by that time instead of improving then return to clinic or follow up with PCP for re-evaluation. documented in this encounter [facility] 04-17-2023 History of Presen t illness Narrative Subjective The history is provided by the patient. No school speech language pathologist was used. HPI Ana Larkin is a 62 year old female who presents today for CC of sinus congestion and pressure for 5 days She has used no treatment or medications. She works at [employer]. She has not used any treatment or medications. She has not done any testing, declines testing today. BP 132/77 Pulse 82 Temp 36.8 C (98.2 F) Resp 16 Ht 157.5 cm (5' 2) Wt 68.9 kg (152 lb) LMP 04/05/2011 SpO2 98% BMI 27.80 kg/m Social History Tobacco Use Smoking status: Never Smokeless tobacco: Never Substance Use Topics Alcohol use: No Drug use: No PAST MEDICAL HISTORY Diagnosis Date Fibroids May 2011 Laparoscopic supracervical hysterectomy GERD (gastroesophageal reflux disease) Hypertension Dr. MEJIA Menorrhagia May 2011 Laparoscopic supracervical hysterectomy Migraines I have confirmed and edited as necessary, the [facility] Review of Systems Constitutional: Positive for malaise/fatigue. Negative for chills and fever. HENT: Positive for congestion and sinus pain. Negative for ear pain and sore throat. Respiratory: Positive for cough. Negative for sputum production, shortness of breath and wheezing. Cardiovascular: Negative for chest pain. Gastrointestinal: Negative for abdominal pain, diarrhea, nausea and vomiting. Musculoskeletal: Negative for myalgias. Neurological: Positive for headaches. Objective Physical Exam Vitals and nursing note reviewed. HENT: Head: Normocephalic and atraumatic. Right Ear: Tympanic membrane, ear canal and external ear normal. Left Ear: Tympanic membrane, ear canal and external ear normal. Nose: Mucosal edema, congestion and rhinorrhea present. Right Sinus: Maxillary sinus tenderness present. No frontal sinus tenderness. Left Sinus: Maxillary sinus tenderness present. No frontal sinus tenderness. Mouth/Throat: Pharynx: Uvula midline. No oropharyngeal exudate or posterior oropharyngeal erythema. Cardiovascular: Rate and Rhythm: Normal rate and regular rhythm. Heart sounds: Normal heart sounds. Pulmonary: Effort: Pulmonary effort is normal. Breath sounds: Normal breath sounds. Lymphadenopathy: Head: Right side of head: No submental, submandibular or tonsillar adenopathy. Left side of head: No submental, submandibular or tonsillar adenopathy. Cervical: No cervical adenopathy. Skin: General: Skin is warm and dry. Neurological: Mental Status: She is alert. Psychiatric: Mood and Affect: Affect normal. ASSESSMENT/PLAN: 1. Viral URI with cough - ICD9: 465.9, ICD10: J06.9 - Discussed viral etiology and rationale for treatment. - Symptomatic treatment with prn analgesia - Supportive care with fluids and rest - The patient may also use OTC cough and cold meds as needed and warm salt water gargles, throat lozenges and/or OTC throat spray as needed. - Follow up in one week if symptoms persist or sooner if worsening of symptoms - Benzonatate Diagnosis and treatment plan were discussed and questions were answered to the patient's satisfaction. Pt acknowledged understanding of concepts and follow up plan. Specific signs and symptoms that would indicate the need for higher level of care were discussed in detail warranting prompt ER evaluation. Dayanna Gamez APRN.[employer] documented in this encounter [facility] 01-29-2023 History of Presen t illness Narrative This note was created using Zingfinriter. Subjective Ana Larkin is a 62 year old female. HPI by patient: Ana Larkin is a 62 year old presenting to the office with the complaint of bilateral ear pain. Started yesterday. Associated symptoms include nothing else. Denies uri symptoms, fever, headache, dizziness, gi symptoms, and cough. OTC not used per patient. No antibiotic use in the last 60 days. ALLERGIES Ticagrelor Shortness of Breath Atorvastatin Myalgia Comment:Myalgia with 20mg daily Clopidogrel Other: See Comments Erythromycin Hives, Itching Hctz [Thiazides] GI Upset, Other: See Comments Comment:Extreme dizziness Imitrex [Sumatripta* Anaphylaxis Comment:Throat swollen, sob, had to get shot of epi last time. Levaquin [Levofloxa* GI Upset Nitrofurantoin Other: See Comments, GI Upset Comment:Patient reported. Oxycodone Other: See Comments Comment:Makes very hyper Pravastatin Unknown Comment:Leg pain Pseudoephedrine-Gua* GI Upset Comment:Patient reported Vicodin [Hydrocodon* Intolerance Comment:Can't sleep Cephalosporins Unknown Citalopram Other: See Comments, Unknown Comment:Patient reported Estradiol GI Upset Comment:Pt sts dizzy and nausea Hctz [Triamterene-H* GI Upset Sertraline Other: See Comments Comment:[place] do[place] Sucralfate GI Upset Comment:Patient reported Triamterene Vomiting No family history on file. Social History Tobacco Use Smoking status: Never Smokeless tobacco: Never Alcohol use: No Drug use: No Active Ambulatory Problems No Active Ambulatory Problems Resolved Ambulatory Problems No Resolved Ambulatory Problems Past Medical History: May 2011: Fibroids No date: GERD (gastroesophageal reflux disease) No date: Hypertension May 2011: Menorrhagia No date: Migraines Review of Systems Constitutional: Negative. HENT: Positive for ear pain. Negative for congestion and sore throat. Eyes: Negative. Respiratory: Negative. Cardiovascular: Negative. Gastrointestinal: Negative. Endocrine: Negative. Genitourinary: Negative. Musculoskeletal: Negative. Skin: Negative. Neurological: Negative. Hematological: Negative. Objective BP 114/70 Pulse 87 Resp 16 Ht 157.5 cm (5' 2) Wt 68 kg (150 lb) LMP 04/05/2011 SpO2 96% BMI 27.44 kg/m Physical Exam Vitals reviewed. Constitutional: General: She is not in acute distress. Appearance: She is not ill-appearing, toxic-appearing or diaphoretic. HENT: Head: Jaw: Pain on movement present. Comments: +TMJ click bilaterally, Right<Left. Right Ear: Tympanic membrane, ear canal and external ear normal. Impacted cerumen: excess, non impacting. Left Ear: Tympanic membrane, ear canal and external ear normal. Impacted cerumen: excess, non impacting. Nose: Rhinorrhea present. Cardiovascular: Rate and Rhythm: Normal rate and regular rhythm. Pulmonary: Effort: Pulmonary effort is normal. Neurological: Mental Status: She is alert. Psychiatric: Behavior: Behavior is cooperative. Assessment and Plan (R29.898) TMJ click (primary encounter diagnosis) Plan: predniSONE (DELTASONE) 20 mg tablet (H92.03) Acute otalgia, bilateral Plan: predniSONE (DELTASONE) 20 mg tablet -Bilateral otalgia. Positive bilateral TMJ click. Will treat with prednisone, take with food. -OTC tylenol -Make follow up with primary care for monitoring and resolution in symptoms. -Signs that warrant an ER evaluation: Sudden change/worsening in condition, lethargy, signs of dehydration, fever greater than 102 F that is not responding to Tylenol or ibuprofen (Motrin, Advil), drooling, difficulty swallowing, difficulty breathing, shortness of breath, chest pain, evidence of airway compromise (tripod position, neck extension, retractions), seizures, changes in mental status, or other concerns. The patient will pursue further outpatient evaluation with the primary care physician or another Urgent Care/Express Care as outlined in the after visit summary. The patient is agreeable to this plan of care and follow-up instructions have been explained in detail. The patient has received these instructions in written format and have expressed an understanding of the after visit summary. Medical Decision Making: Level: 4 - Moderate I spent a total of 20 minutes on the date of the service which included preparing to see the patient, [id number] patient care, completing clinical documentation, obtaining and/or reviewing separately obtained history, performing a medically appropriate examination, counseling and educating the patient/family/caregiver, and ordering medications, tests, or procedures. documented in this encounter [facility] 01-29-2023 Instructions Linh Aly APRN.CNP - 01/29/2023 4:03 PM EDT (R29.898) TMJ click (primary encounter diagnosis) Plan: predniSONE (DELTASONE) 20 mg tablet (H92.03) Acute otalgia, bilateral Plan: predniSONE (DELTASONE) 20 mg tablet -Bilateral otalgia. Positive bilateral TMJ click. Will treat with prednisone, take with food. -OTC tylenol -Make follow up with primary care for monitoring and resolution in symptoms. -Signs that warrant an ER evaluation: Sudden change/worsening in condition, lethargy, signs of dehydration, fever greater than 102 F that is not responding to Tylenol or ibuprofen (Motrin, Advil), drooling, difficulty swallowing, difficulty breathing, shortness of breath, chest pain, evidence of airway compromise (tripod position, neck extension, retractions), seizures, changes in mental status, or other concerns. PAIN & THE TMJ What is TMJ? You may not have ever heard of it, but you use it hundreds of times every day. It is Temporo-Mandibular Joint, the joint where the mandible (lower jaw) joins the temporal bone of the skull, immediately in front of the ear on each side of the head. Each time you chew you move it. But you also move it every time you talk and every time you swallow (every three minutes or so). It is, therefore one of the most frequently used of all the joints of the body. You can locate that joint by putting your finger on the the triangular structure in front of your ear. Then move your finger just slightly forward and press firmly while you open your jaw all the way open and shut. The motion you feel is in the TMJ. You can also feel the joint motion if you put your finger down into your ear canal with the fingernail backwards. Then press forward as you open and close your jaw again. These maneuvers can cause considerable discomfort to a patient who is having TMJ trouble, and physicians do this to patients for diagnosis. How Does the TMJ Work? When you bite down forcefully, you not only put force on the object between your teeth, but also on the joint. In terms of physics, the jaw is the lever and the TMJ is the fulcrum. Actually, more force is applied (per square inch) to the joint surface than to whatever is between your teeth. To accommodate for such forces, and to prevent too much wear and tear from occurring in one spot within the joint space, the joint was designed to be a sliding joint, rather than the usual ball and socket type joint, (such as the hip and shoulder, for example) Therefore, the forces of chewing can be distributed over a wider surface in the joint space, which dissipates the wear and tear and allows healing to rapidly occur in between chewing times. Joints are lined with cartilage(gristle), which is a rubbery, slippery material that allows for smooth motion. How Can Things Go Wrong With the TMJ? If you habitually clench or grit or grind your teeth, you increase the wear on the cartilage lining of the joint. Many persons grind their teeth and they do not know it unless an observant roommate tells them so. If you habitually chew gum much of the day, again you increase the wear and tear on the joint and you give little opportunity to recover between meals, as it ought to have. If you chew habitually only on one side of your mouth, you concentrate all pressure on one side rather than equally on both sides, and too much wear occurs on the joint of that side. This often occurs if you have a tooth problem on one side, or recent dental work, that causes you to favor one side over the other. Teeth that do not fit together properly are often at fault. This is called an improper, bite. Imagine how much pressure the TMJ must endure during each chew when teeth on one side come together before those on the opposite side do. In each of the above circumstances, a fully chewing pattern takes place that creates one focus of wear in the cartilage lining of the joint space. When the spot wears down to the nerve endings, pain occurs. A form of arthritis occurs ( traumatic type) which is called TMJ dysfunction. (Dysfunction means or painful function.) How Does TMJ Dysfunction Feel? The pain may be sharp and searing, occurring each time you swallow, yawn, talk or chew; or it may be dull, constant and boring. The usual focus of pain is over the joint, immediately in front of the ear, but pain can radiate elsewhere. The pain often causes spasm in the adjacent muscles which are attached to the bones of the skull, face, and jaws. Therefore,pain can be felt at the side of the head ( the yazdanism), the cheek, the lower jaw, and the teeth. Some people have attributed migraine, sinus trouble and backaches to the TMJ, but that would be difficult to explain with our present-day knowledge of anatomy and physiology. A very common focus of pain is in the ear. May patients come to the market research assistant quite convinced their pain is from an ear infection. When an earache is not associated with a hearing loss, and the eardrum looks normal, the doctor will consider the possibility that the pain comes from TMJ dysfunction. There are a few other symptoms besides pain that TMJ dysfunction can cause. In some patients the TMJ make popping, clicking or grinding sounds when the jaws are opened widely. Or they can lock wide open ( dislocated), or, at the other extreme, they can prevent the jaws from fully opening up. Some people get ringing in their ears from TMJ trouble, which is exaggeration of the ear ringing that most people can normally produce by clenching their teeth together hard. What Can Be Done For TMJ Dysfunction? If yours is a mild case and one that has been detected early, it will probably respond to these simple self-help remedies: 1. Chew evenly, left vs. right. 2. Stop clenching, gritting or grinding teeth. 3. Stop chewing gum. 4. Avoid hard chewy foods 5. Apply heating pad for a half hour at least twice daily. 6. Take aspirin (or buffered aspirin) or other anti-inflammatory medicines in a dose your doctor recommends. Items 1-4 are intended to reduce the amount of wear and injury that the joint suffers. Items 5 and 6 are to encourage the healing processes's. Aspirin and other anti-inflammatory medicines are very effective for reducing inflammation in joints, which is why patients use them for arthritis. They are very effective for TMJ dysfunction too. Checking for dental problems and readjusting your bite can help. Stubborn cases of TMJ dysfunction may require further consultation with an oral surgeon or dentist. Your dentist can fit you with splint to open your bite and decrease bruxism (grinding your teeth while sleeping) 1994 [employer] documented in this encounter [facility] 08-12-2022 Miscellaneous Notes Please call the patient and inform them that- Please be aware that your COVID-19 and influenza test is negative. Please continue the plan of care as discussed at your clinic visit. Follow up with your primary care physician for any new or persisting fever or worsening or changing symptoms. Please refrain from work/school and isolate yourself until - -At least 24 hours have passed since last fever without the use of fever-reducing medications Nisha Mansfield PA-C documented in this encounter [facility] 05-01-2022 Instructions Randolph Wright APRN.WENCESLAO - 05/01/2022 9:47 AM EST [facility] PATIENT INFO Otitis media is an infection of the middle ear. The middle ear sits behind the eardrum. This infection may be caused by a virus or bacteria and often follows a cold. Otitis media is not contagious. INSTRUCTIONS: 1. If an antibiotic has been prescribed,it should be taken exactly as prescribed. Do not stop the medicine even if the symptoms go away. 2. Khfm-don-emanitt pain medication may be taken or other pain medication as prescribed by the doctor. 3. Nothing should be placed in the ear unless instructed by your doctor. 4. The patient may return to school or work when the temperature is normal (98.6 F or 37 C). 5. The patient should not swim while the ear is infected. CALL YOUR PRIMARY CARE PROVIDERS OFFICE- -If you do not feel better within 48-72 hours. -If you develop a temperature over 102 F (39 C). -If you develop drainage from the affected ear. -If you have any new problem that may be related to the medicine prescribed. COMMON COLD OVERVIEW The common cold is one of the most frequent illnesses in the [place]. Although most colds are mild and resolve within a short time period, colds cost billions of dollars per year, mostly due to lost time at work and school. COMMON COLD CAUSES The common cold is a group of symptoms caused by one of a large number of viruses. Rhinoviruses cause the greatest number of colds; there are more than 100 different varieties of rhinovirus. Most viruses cause a person to be ill only once. However, due to the large number of viruses, a person can have a cold multiple times throughout his or her lifetime. The average adult experiences two to three colds per year, while children average 8 to 12 colds per year. Colds are transmitted from mdvleh-oe-mybttp. Less often, the virus can be transmitted by touching a surface. Direct contact -- People with colds typically carry the cold virus on their hands. The virus may remain alive on the skin and capable of infecting another person for at least two hours. Thus, if a sick person shakes someone's hand and that individual then touches his eye, nose, or mouth, the virus can be transmitted and later infect that person. Infection from particles on surfaces -- Some cold viruses can live on surfaces (such as a counter top, door handle, or phone) for several hours. Inhaling viral particles -- Droplets containing viral particles can be breathed, coughed, or sneezed into the air by a person with a cold. The virus can be transmitted to others if another person is standing close (a few feet) and the droplet touches that person s eye, nose, or mouth. Covering the mouth while coughing or sneezing greatly reduces this risk. Most cold viruses are not spread by saliva. Thus, kissing itself is not likely to transmit the common cold, but close direct contact can. Colds are not caused by cold climates or being exposed to cold air. However, some types of virus cause more colds during certain seasons (eg, fall and winter versus spring). COMMON COLD SIGNS AND SYMPTOMS The common cold usually causes nasal congestion, runny nose, and sneezing. A sore throat may be present on the first day but usually resolves quickly. If a cough occurs, it generally develops on about the fourth or fifth day of symptoms, typically when congestion and runny nose are usually resolving. COMMON COLD COMPLICATIONS In most cases, colds do not cause serious illness. Most colds last for three to seven days, although many people continue to have symptoms (coughing, sneezing, congestion) for up to two weeks. Some viruses that cause the common cold can also depress the immune system or cause swelling in the lining of the nose or airways; this can, in turn, lead to a new viral infection or bacterial infection. One of the more common complications is sinusitis, which is usually caused by viruses and rarely (about 2 percent of the time) by bacteria. However, it can be difficult to distinguish bacterial sinusitis from sinusitis caused by a cold because the signs and symptoms can be similar Having thick or yellow to green-colored nasal discharge does not mean that bacterial sinusitis has developed; discolored nasal discharge is a normal phase of the common cold. Lower respiratory infections, such as pneumonia or bronchitis, may develop following a cold. Infection of the middle ear, or otitis media, can accompany or follow a cold. The influenza virus, which causes the flu, can also cause features similar to those of a cold. However, the flu usually causes other signs and symptoms (fever, body aches) and is more serious than a cold. COMMON COLD TREATMENT There is no specific treatment for the viruses that cause the common cold. Most treatments are aimed at relieving some of the symptoms of the cold, but do not shorten or cure the cold. Antibiotics are not useful for treating the common cold; antibiotics are only used to treat illnesses caused by bacteria, not viruses. The symptoms of a cold will resolve over time, even without any treatment. The following are treatments that may reduce the symptoms caused by the common cold. People with underlying medical conditions and those who use other xxtg-lul-eyxdqqj or prescription medications should speak with their healthcare provider or pharmacist to ensure that it is safe to use these treatments. Runny nose and nasal congestion -- Runny nose and congestion may improve with the use of decongestants. Pseudoephedrine is a decongestant that can improve nasal congestion. Most drugstores in the [place] carry pseudoephedrine behind the counter, so it must be requested from the pharmacist (a prescription is not required). Antihistamines such as diphenhydramine (Benadryl ) may also help, but can cause side effects such as drowsiness and drying of the eyes, nose, and mouth. Nasal inhalers, including ipratropium bromide (Atrovent , available by prescription) may relieve runny nose and sneezing while cromolyn sodium (NasalCrom , a non-prescription medicine) may relieve runny nose, cough, and sneezing. Other nasal sprays such an oxymetazoline (Afrin and others) can also give temporary relief of nasal congestion. However, these sprays should never be used for more than two to three days; use for more than three days use can worsen congestion. Nasal irrigation and saline sprays -- Rinsing the nose with a salt-water (saline) solution is called nasal irrigation or nasal lavage. Saline is also available in a standard nasal spray, although this is not as effective as using larger amounts of water in an irrigation. Nasal irrigation is particularly useful for treating drainage down the back of the throat, sneezing, nasal dryness, and congestion. The treatment helps by rinsing out allergens and irritants from the nose. Saline rinses also clean the nasal lining and can be used before applying sprays containing medications, to get a better effect from the medication. Nasal lavage with warmed saline can be performed as needed, once per day, or twice daily for increased symptoms. Nasal lavage carries few risks when performed correctly. Saline nasal sprays and irrigation kits can be purchased xfjp-bxo-szqvqon. Saline mixes can also be purchased or patients can make their own solution. A variety of devices, including bulb syringes, Neti pots, and bottle sprayers, may be used to perform nasal lavage; instructions for nasal lavage are provided in the table. At least 200 mL (about 3/4 cup) of fluid is recommended for each nostril. Sore throat and headache -- Sore throat and headache are best treated with a mild pain reliever such as acetaminophen (Tylenol ) or a non-steroidal anti-inflammatory agent such as ibuprofen or naproxen (Motrin or Aleve ). Cough -- Common cough medicine ingredients include guaifenesin and dextromethorphan; these are often combined with other medications in jelt-gvf-czckchr cold formulas. However, the benefit of cough medicines is likely to be small to non-existent. In clinical trials, cough suppressants were no more effective in reducing the duration or severity of coughing due to cold than a placebo (a non-drug substitute). Antibiotics -- Antibiotics should not be used to treat an uncomplicated common cold. As noted above, colds are caused by viruses. Antibiotics treat bacterial, not viral infections. Alternative treatments -- Heated, humidified air can improve symptoms of nasal congestion and runny nose, and causes few to no side effects. PREVENTION Hand washing is an essential and highly effective way to prevent the spread of infection. Hands should be wet with water and plain soap, and rubbed together for 15 to 30 seconds. Special attention should be paid to the fingernails, between the fingers, and the wrists. Hands should be rinsed thoroughly, and dried with a single use towel. Alcohol-based hand rubs are a good alternative for disinfecting hands if a sink is not available. Hand rubs should be spread over the entire surface of hands, fingers, and wrists until dry, and may be used several times. These rubs can be used repeatedly without skin irritation or loss of effectiveness. Hand rubs are available as a liquid or wipe in small, portable sizes that are easy to carry in a pocket or handbag. When a sink is available, visibly soiled hands should be washed with soap and water. Hands should be washed before preparing food and eating, and after coughing, blowing the nose, or sneezing. While it is not always possible to limit contact with people who may be infected with a cold, touching the eyes, nose, or mouth after direct contact should be avoided when possible. In addition, tissues should be used to cover the mouth when sneezing or coughing. These used tissues should be disposed of promptly. Sneezing/coughing into the sleeve of one's clothing (at the inner elbow) is another means of containing sprays of saliva and secretions and does not contaminate the hands. SUMMARY The average adult experiences two to three colds per year, while children average 8 to 12 colds per year. Symptoms of the common cold usually include nasal congestion, runny nose, and sneezing. They typically last for three to seven days, although many people have symptoms (coughing, sneezing, congestion) for up to two weeks. People with colds typically carry the cold virus on their hands, where it can infect another person for at least two hours. Some cold viruses can live on surfaces (such as a counter top, door handle, or phone) for several hours. Droplets containing viral particles can be breathed, coughed, or sneezed into the air. There is no specific treatment for colds. Treatment may reduce some of the symptoms of the cold, but do not shorten or cure the cold. Antibiotics are not useful for treating the common cold. Hand washing can prevent the spread of infection. Hands should be wet with water and plain soap, and rubbed together for 15 to 30 seconds. Alcohol-based hand rubs are a good alternative for disinfecting hands if a sink is not available documented in this encounter [facility] 05-01-2022 History of Presen t illness Narrative This note was created using Metrilo. Subjective Ana Larkin is a 61 year old female. Works in freezer Has had various symptoms for ~7 days, come and go Had trouble breathing yesterday , with cough, especially at night Sinus drainage- clear, right ear pain- worse with touch, especially laying on it. Sounds muffled. Chills, no fevers noted Cough- not productive, dry Not smoker Vaccinated Covid, not this year flu Had diarrhea yesterday, felt sick to stomach Has not eaten today Very tired Frontal headache worse with palpation The history is provided by the patient. Ear Pain This is a new problem. The current episode started in the past 7 days. The problem occurs daily. The problem has been gradually worsening. Associated symptoms include chills, congestion, coughing, fatigue and a sore throat. Pertinent negatives include no abdominal pain, anorexia, arthralgias, change in bowel habit, chest pain, diaphoresis, fever, headaches, joint swelling, myalgias, nausea, rash, vomiting or weakness. Nothing aggravates the symptoms. She has tried NSAIDs and rest for the symptoms. The treatment provided mild relief. Review of Systems Constitutional: Positive for chills and fatigue. Negative for activity change, diaphoresis and fever. HENT: Positive for congestion, ear pain, sinus pressure and sore throat. Negative for ear discharge, rhinorrhea and trouble swallowing. Eyes: Negative for discharge, redness and itching. Respiratory: Positive for cough. Negative for shortness of breath and wheezing. Cardiovascular: Negative for chest pain and palpitations. Gastrointestinal: Negative for abdominal distention, abdominal pain, anorexia, change in bowel habit, diarrhea, nausea and vomiting. Endocrine: Negative for polydipsia, polyphagia and polyuria. Genitourinary: Negative for decreased urine volume and difficulty urinating. Musculoskeletal: Negative for arthralgias, joint swelling and myalgias. Skin: Negative for rash. Neurological: Positive for dizziness (at times). Negative for weakness, light-headedness and headaches. Psychiatric/Behavioral: Negative for sleep disturbance. The patient is not nervous/anxious. Objective BP 130/84 Pulse 82 Temp 36.1 C (96.9 F) Resp 18 Ht 157.5 cm (5' 2) Wt 70.8 kg (156 lb) LMP 04/05/2011 SpO2 100% BMI 28.53 kg/m Physical Exam Vitals and nursing note reviewed. Constitutional: General: She is not in acute distress. Appearance: She is not ill-appearing or diaphoretic. HENT: Head: Normocephalic and atraumatic. Right Ear: Ear canal normal. Decreased hearing noted. Tympanic membrane is erythematous and bulging. Left Ear: Hearing and ear canal normal. Tympanic membrane is erythematous. Nose: Right Sinus: Maxillary sinus tenderness and frontal sinus tenderness present. Left Sinus: Maxillary sinus tenderness and frontal sinus tenderness present. Eyes: Extraocular Movements: Extraocular movements intact. Pupils: Pupils are equal, round, and reactive to light. Cardiovascular: Rate and Rhythm: Normal rate and regular rhythm. Pulses: Normal pulses. Heart sounds: Normal heart sounds. Pulmonary: Effort: Pulmonary effort is normal. Breath sounds: Normal breath sounds. Abdominal: General: Bowel sounds are normal. There is no distension. Palpations: Abdomen is soft. Tenderness: There is no abdominal tenderness. Musculoskeletal: General: No tenderness. Normal range of motion. Skin: General: Skin is warm and dry. Capillary Refill: Capillary refill takes less than 2 seconds. Neurological: General: No focal deficit present. Mental Status: She is alert and oriented to person, place, and time. Mental status is at baseline. Psychiatric: Mood and Affect: Mood normal. Behavior: Behavior normal. Assessment and Plan ASSESSMENT/PLAN: 1. Acute viral syndrome - ICD9: 079.99, ICD10: B34.9 (primary diagnosis) - Discussed viral etiology and rationale for treatment. - Symptomatic treatment with prn analgesia - Supportive care with fluids and rest - The patient may also use OTC cough and cold meds as needed. - Viral swab obtained and pending 2. Otalgia of right ear - ICD9: 388.70, ICD10: H92.01 - Right OM - Bulging and erythematous right TM - Sx ~7 days and worsening -Start Zyrtec x 5 days - OTC meds - Augmentin x 7 days Randolph Wright APRN.[employer] documented in this encounter [facility] 03-17-2022 Miscellaneous Notes Left a message on Parent's voicemail. Patient's only number on file is her work- [employer]. Please review the below if a call back is made. COVID-19/flu negative; recommended to self-isolate until the following criteria are met: If you are symptomatic, the CDC recommends that people refrain from work/school and isolate themselves until - At least 24 hours have passed since last fever without the use of fever-reducing medications Other symptoms have improved Please continue with supportive care (rest and hydration) and follow up with primary care for any persistent or worsening symptoms. Please wear a mask when out in public after symptoms have improved. documented in this encounter [facility] 03-16-2022 History of Presen t illness Narrative This note was created using Zingfinriter. Subjective Ana Larkin is a 61 year old female. HPI by patient: Ana Larkin is a 61 year old female presenting to the office with the complaint of viral symptoms. Started approximately 3 days prior with right ear pain but then states on Sunday she had a 101F fever with no other symptoms- was trying to get her flu shot. Associated symptoms include fever of 101F, runny nose, cough- intermittent, itchy eyes, crusting of the eyes, chills yesterday, a little fatigue, and nausea yesterday. Denies body aches, shortness of breath, vomiting and diarrhea. Vaccinated for influenza: none. Covid Immunization Dates Overdue - COVID-19 VACCINE (1) Overdue - never done No completion, postpone, frequency change, or communication history exists for this topic. Personal history of Covid: 2020. Flu/RSV contacts: none. Strep contacts: none. Sick contacts: none. Covid + contacts: none. Travel in the last 14 days: none. Smoking history/second hand smoke: none. OTC cough drops No antibiotic use in the last 60 days. ALLERGIES Erythromycin Hives, Itching Hctz [Thiazides] GI Upset, Other: See Comments Comment:Extreme dizziness Imitrex [Sumatripta* Anaphylaxis Comment:Throat swollen, sob, had to get shot of epi last time. Levaquin [Levofloxa* GI Upset Oxycodone Other: See Comments Comment:Makes very hyper Vicodin [Hydrocodon* Intolerance Comment:Can't sleep No family history on file. Social History Tobacco Use Smoking status: Never Smokeless tobacco: Never Alcohol use: No Drug use: No Active Ambulatory Problems No Active Ambulatory Problems Resolved Ambulatory Problems No Resolved Ambulatory Problems Past Medical History: May 2011: Fibroids No date: GERD (gastroesophageal reflux disease) No date: Hypertension May 2011: Menorrhagia No date: Migraines Review of Systems Constitutional: Positive for chills (yesterday), fatigue and fever (sunday). HENT: Positive for congestion, ear pain, rhinorrhea and sore throat. Eyes: Negative. Respiratory: Positive for cough. Negative for shortness of breath. Cardiovascular: Negative. Gastrointestinal: Positive for nausea. Negative for diarrhea and vomiting. Endocrine: Negative. Genitourinary: Negative. Musculoskeletal: Negative. Skin: Negative. Neurological: Positive for headaches. Hematological: Negative. Objective BP 133/83 Pulse 85 Temp 36.7 C (98 F) (Temporal) Resp 18 Wt 69.9 kg (154 lb) LMP 04/05/2011 SpO2 97% BMI 27.28 kg/m Physical Exam Vitals reviewed. Constitutional: General: She is not in acute distress. Appearance: She is not ill-appearing, toxic-appearing or diaphoretic. HENT: Head: Normocephalic and atraumatic. Right Ear: Tympanic membrane, ear canal and external ear normal. Left Ear: Tympanic membrane, ear canal and external ear normal. Nose: No rhinorrhea. Right Sinus: Maxillary sinus tenderness present. No frontal sinus tenderness. Left Sinus: Maxillary sinus tenderness present. No frontal sinus tenderness. Mouth/Throat: Mouth: Mucous membranes are moist. Pharynx: Oropharynx is clear. No oropharyngeal exudate or posterior oropharyngeal erythema. Cardiovascular: Rate and Rhythm: Normal rate and regular rhythm. Pulmonary: Effort: Pulmonary effort is normal. Breath sounds: Normal breath sounds. Lymphadenopathy: Head: Right side of head: No submandibular or tonsillar adenopathy. Left side of head: No submandibular or tonsillar adenopathy. Cervical: Cervical adenopathy present. Right cervical: Superficial cervical adenopathy present. Left cervical: Superficial cervical adenopathy present. Psychiatric: Behavior: Behavior is cooperative. Assessment and Plan (J06.9) Viral URI with cough (primary encounter diagnosis) Plan: COVID WITH FLUA+B, ROUTINE, fluticasone (FLONASE ALLERGY RELIEF) 50 mcg/actuation nasal spray, [id number]-[id number]-Xmnhdjnshmna (CORICIDIN HBP FLU) 2-15-500 mg tab (H92.01) Otalgia of right ear Plan: fluticasone (FLONASE ALLERGY RELIEF) 50 mcg/actuation nasal spray Education on viral vs bacterial infections. Most viral infections will last 10 days, sometimes 14. It is possible to have back to back viral infections. An antibiotic will not treat a virus. -Covid test for rule out, results in 48 hours, isolation in the interim. Will call with results. If + for covid, reach out to primary care. -Drink lots of fluids and get plenty of rest. Gargle with salt water 3 times/day. -Vaporizers, cool mist humidifiers, warm showers, and warm fluids help open respiratory and sinus passages. Clean humidifiers daily. -OTC tylenol as directed on the bottle, make sure you are not double dosing with the coricidin. -Saline nasal spray as needed. Flonase twice daily can help reduce inflammation through the sinus cavities. -OTC Coricidin. -Cough/deep breathing education, promote clearing of the airways and good lung expansion. -Make follow up with primary care for monitoring and resolution in symptoms. -Signs that warrant an ER evaluation: Sudden change/worsening in condition, lethargy, signs of dehydration, fever greater than 102 F that is not responding to Tylenol or ibuprofen (Motrin, Advil), drooling, difficulty swallowing, difficulty breathing, shortness of breath, chest pain, evidence of airway compromise (tripod position, neck extension, retractions), seizures, changes in mental status, or other concerns. The patient will pursue further outpatient evaluation with the primary care physician or another Urgent Care/Express Care as outlined in the after visit summary. The patient is agreeable to this plan of care and follow-up instructions have been explained in detail. The patient has received these instructions in written format and have expressed an understanding of the after visit summary. Medical Decision Making: Level: 3 - Low I spent a total of 20 minutes on the date of the service which included preparing to see the patient, [id number] patient care, completing clinical documentation, obtaining and/or reviewing separately obtained history, performing a medically appropriate examination, counseling and educating the patient/family/caregiver, and ordering medications, tests, or procedures. This patient encounter involved the screening or treatment of novel coronavirus infection (COVID-19). documented in this encounter [facility] 03-16-2022 Instructions Linh Aly APRN.CNP - 03/16/2022 10:53 AM EDT (J06.9) Viral URI with cough (primary encounter diagnosis) Plan: COVID WITH FLUA+B, ROUTINE, fluticasone (FLONASE ALLERGY RELIEF) 50 mcg/actuation nasal spray, OU-Ideqavoxnfmoe-Cznuxdbuvlso (CORICIDIN HBP FLU) 2-15-500 mg tab (H92.01) Otalgia of right ear Plan: fluticasone (FLONASE ALLERGY RELIEF) 50 mcg/actuation nasal spray Education on viral vs bacterial infections. Most viral infections will last 10 days, sometimes 14. It is possible to have back to back viral infections. An antibiotic will not treat a virus. -Covid test for rule out, results in 48 hours, isolation in the interim. Will call with results. If + for covid, reach out to primary care. -Drink lots of fluids and get plenty of rest. Gargle with salt water 3 times/day. -Vaporizers, cool mist humidifiers, warm showers, and warm fluids help open respiratory and sinus passages. Clean humidifiers daily. -OTC tylenol as directed on the bottle, make sure you are not double dosing with the coricidin. -Saline nasal spray as needed. Flonase twice daily can help reduce inflammation through the sinus cavities. -OTC Coricidin. -Cough/deep breathing education, promote clearing of the airways and good lung expansion. -Make follow up with primary care for monitoring and resolution in symptoms. -Signs that warrant an ER evaluation: Sudden change/worsening in condition, lethargy, signs of dehydration, fever greater than 102 F that is not responding to Tylenol or ibuprofen (Motrin, Advil), drooling, difficulty swallowing, difficulty breathing, shortness of breath, chest pain, evidence of airway compromise (tripod position, neck extension, retractions), seizures, changes in mental status, or other concerns. documented in this encounter [facility] 10-19-2021 Miscellaneous Notes Birthday verified with patient over the phone. Aware of the below messages with all questions answered. COVID-19/flu negative; recommended to self-isolate until the following criteria are met: If you are symptomatic, the CDC recommends that people refrain from work/school and isolate themselves until - At least 24 hours have passed since last fever without the use of fever-reducing medications Other symptoms have improved Please continue with supportive care (rest and hydration) and follow up with primary care for any persistent or worsening symptoms. Please wear a mask when out in public after symptoms have improved. This provider called the number listed for Ana (x2 attempts), but this is a number for BetsyadryanBaldev Betsyjayy voice message picks up x 2. This provider then call the number for her listed contact (Maurice Schaefer [phone]), and left a message that we are trying to get a hold of Ana, that the listed number we have for her does not work, and to please have her [facility] [phone]). No HIPPA info left on the message. If the patient calls back, please inform her that- Her CXR did not show a pneumonia or any other abnormalities or acute changes. As a result, this cough is viral. We will treat for viral cough and URI. Start the Zyrtec, Flonase, and Tessalon Perles as discussed at your clinic visit. COVID/flu test results will come back tomorrow. Nisha Mansfield PA-C IMPRESSION: Stable chest. No acute cardiopulmonary process. documented in this encounter [facility] 10-18-2021 Note HNO ID: [id number] Author: RT Patrice(Michelet) Service: Radiology Author Type: Technologist Type: Progress Notes Filed: 10/18/2021 1:22 PM Note Text: Radiology Service Progress Note PATIENT NAME: Ana Larkin DATE OF SERVICE: October 18, 2021 TIME: 1:22 PM PATIENT IDENTITY VERIFICATION COMPLETED USING TWO (2) IDENTIFIERS: Name and Date of confirmed by patient verbally. FALL SCREENING: Has the patient had 2 falls in the last year or 1 fall with injury or currently using an Ambulatory Assistive Device (Walker, Cane, Wheelchair, Crutches, etc.)? No PATIENT GENDER DATA: Female. status: : No status: N/A PATIENT RELEVANT IMPLANT DATA REVIEWED: Not Applicable RADIOLOGY DEPARTMENT: General X-ray: Exam(s) Completed: Chest X-Ray PERIPHERAL IV DATA: Not applicable SIGNED BY: RT Patrice(R) October 18, 2021 1:22 PM [facility] 10-18-2021 History of Presen t illness Narrative Radiology Service Progress Note PATIENT NAME: Ana Larkin DATE OF SERVICE: October 18, 2021 TIME: 1:22 PM PATIENT IDENTITY VERIFICATION COMPLETED USING TWO (2) IDENTIFIERS: Name and Date of confirmed by patient verbally. FALL SCREENING: Has the patient had 2 falls in the last year or 1 fall with injury or currently using an Ambulatory Assistive Device (Walker, Cane, Wheelchair, Crutches, etc.)? No PATIENT GENDER DATA: Female. status: : No status: N/A PATIENT RELEVANT IMPLANT DATA REVIEWED: Not Applicable RADIOLOGY DEPARTMENT: General X-ray: Exam(s) Completed: Chest X-Ray PERIPHERAL IV DATA: Not applicable SIGNED BY: RT Patrice(R) October 18, 2021 1:22 PM documented in this encounter [facility] 10-18-2021 Instructions Nisha Mansfield PA-C - 10/18/2021 12:27 PM EDT ASSESSMENT/PLAN: 1. Viral URI with cough - - COVID WITH FLUA+B, ROUTINE - XR CHEST 2V FRONTAL/LAT Get your chest x-ray as an outpatient [facility] in [facility] [address] [facility] [address] Outpatient radiology department Walk in 7am -6:30pm We will call you with results - If shows pneumonia, then will start antibiotics. If clear then this is viral. - BENZONATATE 100 MG CAPSULE - CETIRIZINE 10 MG TABLET - Flonase 2. Acute otitis externa of right ear, unspecified type - [id number] 3.5 MG-10,000 UNIT/ML-1 % EAR DROPS,SUSP Encourage fluids, rest. Tylenol and Motrin for pain and fever Saline Nasil spray, Neti Pot, vaporizer, Vicks. Try Cepocol lozenges or Chloraseptic throat spray. Warm salt water gargles. Cough and deep breath- 10x/hr while awake. - Discussed home quarantine recommendations and when to return to work.school, as described by the CDC. They VU. - A work/school excuse was provided - Discussed all reasons to seek further medical evaluation or go to the ER. They VU. Call PCP if sx worsen or no better. If symptoms worsen, or new symptoms develop go to ER. If you have worsening of breathing or breathing changes- go to ER. If you have persistent fever unrelieved by Tylenol/Motrin- go to the ER. Follow up as needed. Barriers to learning: none. The patient verbalizes understanding and is in agreement with plan of care. This patient encounter involved the screening or treatment of novel coronavirus infection (COVID-19). - Red flags for in person care discussed - All questions answered Nisha Mansfield PA-C documented in this encounter [facility] 10-18-2021 History of Presen t illness Narrative Surgical mask, face shield, N95, and gloves worn for all in-person care. 10/18/2021 Patient presents with: URI: x3 days SUBJECTIVE: This is a 61 year old that is here today for concern for URI symptoms and cough x 3 days. She complains of fatigue, cough, sore throat, and runny nose x 3 days. No fever, but she has some chills. She states that she has sternal chest ache with deep breathing and coughs. It just hurts when I cough or take deep breaths. No SOB. No chest pain at rest. No chest tightness or pressure. Her right ear hurts to lay on or press on x 2 days. Symptoms x 3 days (started 10/15/21). COVID exposure: none Denies fever, body aches, sweats. Patient denies wheezing, shortness of breath, increased WOB. Covid Immunization Dates Overdue - COVID-19 VACCINE (1) Overdue - never done No completion, postpone, frequency change, or communication history exists for this topic. COVID vaccine: none History of COVID: noen Influenza vaccine: none Asthma: none Pneumonia: none Tobacco: none Pain on scale of 0-10 with 0 being no pain and 10 being greatest pain: 0 Nothing makes the symptoms better. Nothing makes them worse. Self-treatment:. none The severity is mild and the symptoms are not improving. The patient did not have a similar problem in the last 3 months. The patient did not take any antibiotics in the last 3 months. Barriers to learning: none. Reviewed meds, OTCs, herbals or supplements. Reviewed allergies, medications, social history, and past medical history. PAST MEDICAL HISTORY Diagnosis Date Fibroids May 2011 Laparoscopic supracervical hysterectomy GERD (gastroesophageal reflux disease) Hypertension Dr. MEJIA Menorrhagia May 2011 Laparoscopic supracervical hysterectomy Migraines ALLERGIES Erythromycin, Hctz [Thiazides], Imitrex [Sumatriptan], Levaquin [Levofloxacin], Oxycodone, and Vicodin [Hydrocodone-Acetaminophen] MEDICATIONS Current Outpatient Medications Medication Sig aspirin 325 mg tablet Take 1 tablet by mouth once daily. Amlodipine-Benazepril (LOTREL) 10-40 mg ORAL per capsule Take 1 capsule by mouth once daily. fluticasone (FLONASE) 50 mcg/actuation nasal spray Use 1 [place] in each nostril daily at bedtime. benzonatate (TESSALON PERLES) 100 mg capsule Take 1 capsule by mouth three times daily as needed for Cough. traMADol (ULTRAM) 50 mg tablet Take 1 tablet by mouth every 6 hours as needed. naproxen (NAPROSYN) 500 mg tablet Take 1 tablet by mouth twice daily with meals. DICYCLOMINE HCL (BENTYL ORAL) Take by mouth. No current facility-administered medications for this visit. Medications and allergies reviewed by this provider. SOCIAL HISTORY Social History Tobacco Use Smoking status: Never Smoker Smokeless tobacco: Never Used Substance Use Topics Alcohol use: No Drug use: No REVIEW OF SYSTEMS Review of Systems ROS: constitutional: chills, HENT-sinus symptoms, Eyes- neg, heart-neg, respiratory-Cough, GI-neg, -neg, skin-neg, Allergy- neg, lymph-neg, neuro-neg, psych-neg- All systems neg except as noted above in HPI. OBJECTIVE: BP 153/96 Pulse 81 Temp 36.6 C (97.9 F) (Temporal) Resp 12 Wt 68.2 kg (150 lb 6.4 oz) LMP 04/05/2011 SpO2 97% BMI 26.64 kg/m . Vital signs reviewed by this provider. Physical Exam AAOx3, no acute distress, patient is pleasant, well groomed, dressed appropriately. General: WD, WN, NAD, alert. HEENT: No facial erythema or swelling. Eyes: PERRL. EOMI. No erythema or discharge. -Ears: Right: TM pearly segal with light reflex. +tragus tenderness to pumping and tenderness with manipulation of the auricle. +canal is tender to the speculum. No edema or erythema. No lesions. Left: TM pearly segal with light reflex, ear canals not red or swollen. -Nose-nasal mucosa pink and +clear discharge. No polyps, nasal septum midline. -Throat: pharynx pink with no edema/mass/exudate/erythema, buccal mucosa pink and moist with no lesions. Tonsils are not enlarged. No erythema or exudate. Palate is equal. Uvula is midline- no erythema or edema. Head: no maxillary tenderness noted upon palpation. Neck: no masses or lymphadenopathy. Chest: CTA bilaterally with equal breath sounds; good air exchange throughout. No wheezing, rhonchi, or crackles; no retractions, tripoding, or nasal flaring noted. Heart: RRR, no murmur, rub, or gallop.. Skin: no rash noted, cap refill <3sec, normal skin turgor noted. Ana Eliseo Lrakin - Meets symptom-based criteria for testing and is high risk. - COVID swab collected at time of office visit - Discussed symptom monitoring and supportive care - Red flag symptoms requiring follow up discussed ASSESSMENT/PLAN: 1. Viral URI with cough - ICD9: 465.9, ICD10: J06.9 (primary diagnosis) Lungs clear Vitals stable - COVID WITH FLUA+B, ROUTINE - XR CHEST 2V FRONTAL/LAT Get your chest x-ray as an outpatient [facility] in [facility] or [facility] [address] [facility] [address] Outpatient radiology department Walk in 7am -6:30pm We will call you with results - If shows pneumonia, then will start antibiotics. If clear then this is viral. She declines the need for an inhaler- states no tight, winded or SOB. Just sternal chest ache with deep breaths and coughing. - BENZONATATE 100 MG CAPSULE - CETIRIZINE 10 MG TABLET - Flonase 2. Acute otitis externa of right ear, unspecified type - ICD9: 380.10, ICD10: H60.501 - [id number] 3.5 MG-10,000 UNIT/ML-1 % EAR DROPS,SUSP Encourage fluids, rest. Tylenol and Motrin for pain and fever Saline Nasil spray, Neti Pot, vaporizer, Vicks. Try Cepocol lozenges or Chloraseptic throat spray. Warm salt water gargles. Cough and deep breath- 10x/hr while awake. - Discussed home quarantine recommendations and when to return to work.school, as described by the CDC. They VU. - A work/school excuse was provided - Discussed all reasons to seek further medical evaluation or go to the ER. They VU. Call PCP if sx worsen or no better. If symptoms worsen, or new symptoms develop go to ER. If you have worsening of breathing or breathing changes- go to ER. If you have persistent fever unrelieved by Tylenol/Motrin- go to the ER. Follow up as needed. Barriers to learning: none. The patient verbalizes understanding and is in agreement with plan of care. This patient encounter involved the screening or treatment of novel coronavirus infection (COVID-19). - Red flags for in person care discussed - All questions answered Nisha Mansfield PA-C Medical Decision Making: Problems: Moderate: Acute illness with systemic symptoms Data: Unique test(s) ordered: 2 Risk: Low: Low risk from testing/treatment Moderate: Drug management Medical Decision Making Level: 4 - Moderate I spent a total of 20 minutes on the date of the service which included preparing to see the patient, [id number] patient care, completing clinical documentation, performing a medically appropriate examination, counseling and educating the patient/family/caregiver and ordering medications, tests, or procedures. documented in this encounter [facility] Evaluation note Diagnosis Viral URI with cough- Primary Acute upper respiratory infections of unspecified site Acute otitis externa of right ear, unspecified type [facility] Diagnosis Viral URI with cough Acute upper respiratory infections of unspecified site [facility] Diagnosis Onset Date Resolution Status Cardiac murmur acute Atherosclerotic heart diseas e of [place] coronary artery without angina pectoris chronic Essential (primary) hypertension chronic HLD (hyperlipidemia) chronic [facility] Work Phone: Evaluation note* Diagnosis Viral URI with cough- Primary Acute upper respiratory infections of unspecified site Otalgia of right ear Otalgia, unspecified documented in this encounter [facility] note* Diagnosis Acute viral syndrome- Primary Unspecified viral infection, in conditions classified elsewhere and of unspecified site Otalgia of right ear Otalgia, unspecified Viral syndrome Unspecified viral infection, in conditions classified elsewhere and of unspecified site documented in this encounter [facility] note* Diagnosis TMJ click- Primary Temporomandibular joint sounds on opening and/or closing the jaw Acute otalgia, bilateral documented in this encounter [facility] note* Diagnosis Viral URI with cough- Primary Acute upper respiratory infections of unspecified site documented in this encounter [facility] note* Diagnosis Acute right-sided low back pain without sciatica- Primary [facility] Diagnosis Acute upper respiratory infection- Primary Acute upper respiratory infections of unspecified site Acute pharyngitis, unspecified etiology documented in this encounter [facility] for referral (narrative)* Consultation (Routine) - Pending Review Specialty Diagnoses / Procedures Referred By Morena henderson Referred To Contact Family Medicine Diagnoses Acute right-sided low back pain without sciatica Procedures ME OFFICE/OUTPATIENT [facility] 60 MINUTES Jose Tanner MD [address] [place] [address] [facility] [address] [place] [address] Referral ID Status Reason Start Date Expiration Date Visits Requested Visits Authorized [id number] Pending Review Specialty Services Required 08/21/2023 08/20/2024 1 1 [facility] Health Summary Purpose Family History No Family History Records Found Relationship Condition Age at Onset Recorded Date/T placido Not Specified Hypertension Unknown father Myocardial infarction 75 daughter Malignant neoplasm of breast Unknown Advance Directives No Advanced Directives Records Found Advance Directive Response Recorded Date/ Time Living Will No December 28, 2020 5:03pm Power of Integrity Analyst No December 28 5:03pm Chief Complaint and Reason for Visit Chief Complaint CHEST PAIN AND SOB 1 Y FU MURMUR Reason for Visit Cardiac murmur Atherosclerotic heart disease of [place] coronary artery without angina pectoris Essential (primary) hypertension HLD (hyperlipidemia) Additional Source Comments Source Comments (unrecognize d section and content) In the event this informatio n is protected by the Federal Confidentiality of Alcohol and Drug Abuse Patient Records regulations: The Federal rules restrict any use of the information to criminally investigate or prosecute any alcohol or drug abuse patient.[facility] the event this information is protected by the Federal Confidentiality of Alcohol and Drug Abuse Patient Records regulations: The Federal rules restrict any use of the information to criminally investigate or prosecute any alcohol or drug abuse patient.[facility] the event this information is protected by the Federal Confidentiality of Alcohol and Drug Abuse Patient Records regulations: The Federal rules restrict any use of the information to criminally investigate or prosecute any alcohol or drug abuse patient.[facility] the event this information is protected by the Federal Confidentiality of Alcohol and Drug Abuse Patient Records regulations: The Federal rules restrict any use of the information to criminally investigate or prosecute any alcohol or drug abuse patient.[facility] the event this information is protected by the Federal Confidentiality of Alcohol and Drug Abuse Patient Records regulations: The Federal rules restrict any use of the information to criminally investigate or prosecute any alcohol or drug abuse patient.[facility] the event this information is protected by the Federal Confidentiality of Alcohol and Drug Abuse Patient Records regulations: The Federal rules restrict any use of the information to criminally investigate or prosecute any alcohol or drug abuse patient.[facility] the event this information is protected by the Federal Confidentiality of Alcohol and Drug Abuse Patient Records regulations: The Federal rules restrict any use of the information to criminally investigate or prosecute any alcohol or drug abuse patient.[facility] the event this information is protected by the Federal Confidentiality of Alcohol and Drug Abuse Patient Records regulations: The Federal rules restrict any use of the information to criminally investigate or prosecute any alcohol or drug abuse patient.[facility] the event this information is protected by the Federal Confidentiality of Alcohol and Drug Abuse Patient Records regulations: The Federal rules restrict any use of the information to criminally investigate or prosecute any alcohol or drug abuse patient.[facility] the event this information is protected by the Federal Confidentiality of Alcohol and Drug Abuse Patient Records regulations: The Federal rules restrict any use of the information to criminally investigate or prosecute any alcohol or drug abuse patient.[facility] Hospital[facility] the event this information is protected by the Federal Confidentiality of Alcohol and Drug Abuse Patient Records regulations: The Federal rules restrict any use of the information to criminally investigate or prosecute any alcohol or drug abuse patient.[facility] Reason for Visit (unrecogniz ed section and content) Reason Comments URI x3 days Reason Comments Results Reason Comments Viral Syndrome Right ear pain for 3 days. Cough and sinus drainage. Went to get flu shot today and was told she had a fever Reason Comments Viral Syndrome Cough, congestion, s ob, ear pain started yesterday Reason Comments Ear Problem Right ear is painful , left is just started. Started yesterday Reason Comments Acute Visit Runny nose, coughing that keeps her up all night Reason Comments Hip Pain Reason Comments Upper Respiratory Infection Ear pain, ch est feels tight, has been 3-4 days ago Care Teams (unrecognized sec tion and content) Trimmer Loader Relationship Specialty Start Date End Date Lizette Mar, HEAD RIGGER.LAWN SPRINKLER INSTALLER [address] [place], [place] [phone] PCP - General Family Practice 06/01/17 Trimmer Loader Relationship Specialty Start Date End Date Lizette Mar, HEAD RIGGER.LAWN SPRINKLER INSTALLER [address] [place], [place] [phone] PCP - General Family Practice 06/01/17 Trimmer Loader Relationship Specialty Start Date End Date Lizette Mar, HEAD RIGGER.LAWN SPRINKLER INSTALLER [address] [place], [place] [phone] PCP - General Family Practice 06/01/17 Trimmer Loader Relationship Specialty Start Date End Date Lizette Mar, HEAD RIGGER.LAWN SPRINKLER INSTALLER [address] [place], [place] [phone] PCP - General Family Medicine 06/01/17 Trimmer Loader Relationship Specialty Start Date End Date Lizette Mar, HEAD RIGGER.LAWN SPRINKLER INSTALLER [address] [place], [place] [phone] PCP - General Family Medicine 06/01/17 Trimmer Loader Relationship Specialty Start Date End Date Lizette Mar, HEAD RIGGER.LAWN SPRINKLER INSTALLER PCP - General Family Medicine 06/01/17 Trimmer Loader Relationship Specialty Start Date End Date Lizette Mar, HEAD RIGGER.LAWN SPRINKLER INSTALLER [address] [place], [place] [phone] PCP - General Family Medicine 06/01/17 Trimmer Loader Relationship Specialty Start Date End Date Lizette Mar, HEAD RIGGER.[employer] INSTALLER [address] [facility] [place] [phone] PCP - General Family Medicine 06/01/17 Trimmer Loader Relationship Specialty Start Date End Date Lizette Mar, HEAD RIGGER.[employer]INK[employer] INSTALLER [address] [place], [place] [phone] PCP - General Family Medicine 06/01/17 Trimmer Loader Relationship Specialty Start Date End Date Lizette Mar, HEAD RIGGER.[employer]INK[employer] INSTALLER [address] [place], [place] [phone] PCP - General Family Medicine 06/01/17 INFORMATION SOURCE (unrecogn ized section and content) DATE CREATED AUTHOR 10/21/2021 [facility] DATE CREATED AUTHOR AUTHOR'S ORGANIZ ATION 08/22/2023 [facility] DATE CREATED AUTHOR AUTHOR'S ORGANIZ ATION 08/24/2024 [facility] DATE CREATED AUTHOR AUTHOR'S ORGANIZ ATION 04/09/2025 [facility] Goals (unrecognized section and content) Goals may be documented in a n alternate section Scheduled Active and Recently Administ ered Medications (unrecognized section and content) Medication Order 08/19/2023 08/20/2023 08/21/2023 acetaminophen (Tylenol) tablet 1,000 mg (COMPLETED) 1,000 mg, Oral, Once, On Sun08/21/23 at 1245, For 1 dose, Maximum dose of acetaminophen is 4000 mg from all sources in 24 hours. 1247 (Given - Provid er: Candie Cage RN) ketorolac (Toradol) injection 15 mg (COMPLETED) 15 mg, IntraMUSCular, Once, On Sun08/21/23 at 1245, For 1 dose 1247 (Given - Provid er: Candie Cage RN) Lidocaine 4 % patch 1 patch 1 patch, TransDERmal, Administer over 12 Hours, Daily, First dose on Sun08/21/23 at 1245, Apply patch to low back. Patch may remain in place for up to 12 hours in any 24 hour period. 1247 (Medication James lied - Provider: Candie Caeg RN)1340 (Due: Medication Removed - Provider: Automatic Discharge Provider - Comment: Time automatically adjusted from order being discontinued) FOR RECORDS PERTAINING TO PATIENTS WHO ARE OR HAVE BEEN ENROLLED IN A CHEMICAL DEPENDENCY/SUBSTANCEABUSE PROGRAM, SOME INFORMATION MAY BE OMITTED. This clinical summary was aggregated from multiple sources. Caution should be exercised in using it in the provision of clinical care. This summary normalizes information from multiple sources, and as a consequence, information in this document may materially change the coding, format and clinical context of patient data. In addition, data may be omitted in some cases. CLINICAL DECISIONS SHOULD BE BASED ON THE PRIMARY CLINICAL RECORDS. [employer] provides no warranty or guarantee of the accuracy or completeness of information in this document.
--- NOTE | 2025-05-05 09:43 | STRESSREP ---
Stress Test Report Exercise myocardial perfusion stress test. 64-year-old lady with a history of coronary artery disease. Stress protocol: Resting EKG demonstrates normal sinus rhythm with a rate of 72 bpm resting blood pressure is 140/84 mmHg. The patient exercised according to the regular Nagi protocol for a total duration of 4-1/2 minutes attaining a maximum heart rate of 144 bpm which was 91% of maximum predicted heart rate; the maximum workload was 7 metabolic equivalents. At rest there were no ST or T wave changes noted to suggest ischemia and at peak exercise upsloping ST changes only were noted which did not meet the criteria for ischemia. No clinical angina was noted the test was terminated due to the target heart rate being achieved/fatigue. The peak blood pressure was 186/96 mmHg. Rate-pressure product was 26,400. Myocardial perfusion protocol. 10.4 mCi of technetium 99m sestamibi was injected at rest. The patient exercised according to regular Nagi protocol for total duration of 4-1/2-minute and at peak exercise 32.8 mCi of technetium 99m sestamibi was injected stress images were obtained stress and rest images were reconstructed in comparing the short axis vertical long and horizontal long axis. Perfusion SPECT analysis: Review of the stress images demonstrate normal uptake of tracer noted in all areas of the myocardium. The resting images similarly demonstrate normal uptake of tracer noted in all areas of the myocardium. No areas of reversibility are noted to suggest ischemia no previous infarct was noted. Conclusion: Normal exercise myocardial perfusion stress test at a moderate workload.
== END | disposition home or self-care (01) ==
LOC: CVS 05:55
PROVIDERS: Referring Provider Physician Assistant Medical; Visit Provider Physician Assistant Medical
DX: I25.10 Atherosclerotic heart disease of native coronary artery without angina pectoris (principal); Z95.5 Presence of coronary angioplasty implant and graft; E78.5 Hyperlipidemia, unspecified
CPT/HCPCS: 78452; 93017; A9500; A4216